=== PATIENT | male | born 1980 | race Caucasian/White ===

== ENCOUNTER 2024-12-09 16:26 | Inpatient (IN) | payer MEDICARE, MEDICAID, SELFPAY ==
[2024-12-09] VITALS (13 sets, daily range): BP systolic 114–153; BP diastolic 71–120; PULSE 114–149; RESP 20–30; TEMP 36.6–36.8; O2SAT 93–95; BMI 35.9
--- NOTE | 2024-12-09 16:41 | EKG_ITS ---
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1980 Requested By: ED Temporary Provider Order Number: [id number] Reading MD: ED Temporary Provider Measurements Intervals [place] Rate: 148 P: [place]: QRS: -48 QRSD: 79 T: 83 QT: 316 QTc: 497 Interpretive Statements ATRIAL FLUTTER/TACHYCARDIA WITH RAPID VENTRICULAR RESPONSE INDETERMINATE AXIS LOW QRS VOLTAGE [QRS DEFLECTION < 0.5/1.0 mV IN LIMB/CHEST LEADS] ANTEROSEPTAL MYOCARDIAL INFARCTION , OF INDETERMINATE AGE [40+ ms Q WAVE IN V1-V4] Compared to ECG 10/02/2024 15:46:25 Indeterminate axis now present Low QRS voltage now present Junctional tachycardia no longer present Left-axis deviation no longer present Incomplete right bundle-branch block no longer present Myocardial infarct finding still present /store/S0/[id number]/ecg/[id number].pdf
--- NOTE | 2024-12-09 16:54 | PD.EDRME ---
Rapid Medical Screening Exam RME Arrival date/time: 12/09/24 16:26 44-year-old male with history of CHF presents to the emergency department today complaints of shortness of breath and fast heart rate Chief Complaint: Shortness of Breath/Dyspnea Vital signs: Vital Signs Temperature 98.2 F 12/09/24 16:46 Pulse Rate 149 H 12/09/24 16:46 Respiratory Rate 24 H 12/09/24 16:46 Blood Pressure 153/96 H 12/09/24 16:46 Pulse Oximetry (%) 95 12/09/24 16:46 Oxygen Delivery Method Room Air 12/09/24 16:46
--- NOTE | 2024-12-09 17:24 | XR_ITS ---
Examination: AP chest single view Technique one AP portable upright chest single view Exam date and time: December 09, 2024 1752 hrs. Comparison October 02, 2024 Indications: Chest pain today Findings: Significant enlargement cardiac contour Mild vascular congestion. No lobar pneumonia No pulmonary edema Impression: Significant enlargement cardiac contour, pericardial effusion would be included in the differential
--- NOTE | 2024-12-09 17:26 | PD.EDARRY ---
ED Arrhythmia Palp. RME/HPI General Chief Complaint: Shortness of Breath/Dyspnea Stated Complaint: DIFF BREATHING x MONTHS, CONGESTION x 5 DAYS Time Seen by Provider: 12/09/24 17:24 Arrival date/time: 12/09/24 16:26 RME / HPI RME / HPI narrative: 12/09/24 16:26 44-year-old male with history of CHF presents to the emergency department today complaints of shortness of breath and fast heart rate DR. ZARATE MAIN ED EVALUATION: 44 year old male with history of CVA, CHF, liver cirrhosis, hypertension, hepatorenal syndrome, renal failure in the past and previously on hemodialysis presents to the ED for evaluation of palpitations, shortness of breath, and cough today. Reportedly has been short of breath intermittently for several months however worse in the last few days. Accompanied by a cough beginning 5 days ago. Additionally reports palpitations beginning today. Denies fevers, chills, abdominal pain, nausea, vomiting, diarrhea, or urinary symptoms. Related Data Home Medications ?Medication ?Instructions ?Recorded ?Confirmed cholecalciferol (vitamin D3) 25 25 mcg PO DAILY 01/01/23 10/03/24 mcg (1,000 unit) tablet folic acid 1 mg tablet 1 mg PO DAILY 01/01/23 10/03/24 loratadine 10 mg tablet 20 mg PO DAILY 01/01/23 10/03/24 pantoprazole 20 mg tablet,delayed 20 mg PO DAILY 01/01/23 10/03/24 release spironolactone 25 mg tablet 25 mg PO DAILY 01/01/23 10/03/24 vitamin B6-vitamin E-magnesium 1 tab PO QDAY 02/19/24 10/03/24 tablet Allergies Allergy/AdvReac Type Severity Reaction Status Date / Time No Known Allergies Allergy Verified 12/09/24 16:29 Review of Systems Review of Systems Narrative Review of Systems: Constitutional: DENIES; Fevers Eyes: DENIES; Loss of vision Head/Ear/Nose: DENIES; Loss of hearing Throat: DENIES; Dysphagia Cardiovascular: SEE HPI +palpitations. DENIES; Chest pain, dyspnea or syncope Respiratory: SEE HPI +Shortness of breath, +cough Gastrointestinal: DENIES; Rectal bleeding or melena. Genitourinary: DENIES; Dysuria (painful or difficult urination) Musculoskeletal: DENIES; Arthralgia (pain in a joint),; Skin: DENIES; Rash Neurological: DENIES; Loss of function or movement Psychiatric: DENIES; recent major life stressor, emotional problem, illicit drug use or abuse Endocrinology: DENIES; Weight change Hematologic/Lymphatic: DENIES; Abnormal bruising Allergic/Immunologic: DENIES; Urticaria (hives) Past Medical History Past Medical History NEUROLOGIC: Positive Cerebrovascular Accident CARDIAC: Positive Cardiac Arrhythmia, Atrial Fibrillation, Heart Murmur, Edema and Hypertension GASTROINTESTINAL: Positive Gastrointestinal Disorders, Cirrhosis, Gastrointestinal Bleed, Esophageal Varices, Gastroesophageal Reflux Disease and Obesity GENITOURINARY: Positive Genitourinary Disorders, Kidney Stones (SMALL) and Dialysis (off HD since 2022) MUSCULOSKELETAL: Positive Fractures (right HUMERUS) HEMATOLOGIC: Positive Blood Disorders, Anemia and Clotting Problems PSYCHO/SOCIAL: Positive Anxiety OTHER HISTORY: Positive Blood Transfusions Family History FAMILY HISTORY: Negative Family Psychiatric Problems, Family Respiratory Disorders, Family Cardiac Disorders, Family Gastrointestinal Problems, Family Cancer, Family Surgery or Family Anesthesia Reaction Surgical History SURGICAL: Positive Tonsillectomy Social History SMOKING STATUS: Heavy (> 1 pack/day) SECOND HAND EXPOSURE: Yes ED Exam Narrative Physical exam: Physical Exam: General: The vital signs were reviewed. The patient is non-toxic, in no apparent distress and appears healthy with a patent airway, no respiratory distress and has no apparent circulatory problems. Head & Scalp: Normocephalic, atraumatic. Face: Appears normal and is without lesions, deformity. Ears: Left external pinna appears normal. Right external pinna appears normal. Eyes: The sclera is anicteric. No obvious photophobia. The Left and Right Orbit/Lid/Conjunctiva appears normal without swelling, discoloration or injection. Nose: The nose is without deformity, discharge or tenderness; Throat: Appears normal. The mucous membranes are pink and moist without exudates, redness or mass seen. The tongue appears normal. Neck: The neck is supple and no apparent mass or adenopathy. Chest: The chest wall is normal in size and symmetry and has no chest wall tenderness or crepitus. The patient displays normal ventilator effort without retractions, accessory muscle use and has adequate air movement bilaterally with no wheezes and no rales. Cardiovascular: Patient has obvious A-fib RVR in the [place] with a rate of 170. His heart is going fast and fairly regular on auscultation. But the monitor shows some irregularity. Gastrointestinal: The abdomen appears distended protuberant probably full of fluid nontender though. No obvious hernias or mass. The abdomen firm to palpation probably full of fluid as mentioned above. Genitourinary: No complaints. Back/Spine: Nontender Extremities/Musculoskeletal/lymphatic: The bilateral upper and lower extremities are warm. There is no evidence of arterial insufficiency. There is 4+ pitting edema in bilateral lower extremities.. The patient spontaneously moves bilateral upper and lower extremities with no pain and no limitation of movement. There is no apparent, injury or trauma. Skin: The skin is warm, dry and intact. No rashes. No petechia. No purpura. No abnormal bruising. The color is appropriate with no cyanosis. Mental status/Psychiatric: Mental status is appropriate for age. The patient has no apparent delusions, visual hallucinations, no apparent audible hallucinations. The patient has no apparent suicidal thoughts/ideation and no apparent homicidal thoughts/ideation. Neurological: The patient is awake, alert, interactive, cordial, cooperative and is oriented to name and situation. The patient follows commands and answers historical question with no impairment. There is no visual disturbance apparent. The pupils are equal and reactive bilaterally with normal eye movements and no diplopia The bilateral upper and lower extremities have normal strength, normal range of motion and normal functioning. The gait, station and balance were not tested due to acuity. Course Course Course Narrative: chest xray ordered to help determine etiology of shortness of breath. Quality Measures none Orders Category Date Time Status Purse Seining Hand NOW Care 12/09/24 16:53 Active EKG (ED ONLY) *Do not use* NOW Care 12/09/24 16:41 Completed EKG (ED Only) Stat Exams 12/09/24 16:41 Draft XR chest 1V portable Stat Exams 12/09/24 17:24 Ordered XR chest 2V Stat Exams 12/09/24 16:53 Ordered B-Type Natriuretic Peptide Stat Lab 12/09/24 16:53 Ordered B-Type Natriuretic Peptide Stat Lab 12/09/24 17:24 Ordered CBC Stat Lab 12/09/24 16:53 Ordered CBC Stat Lab 12/09/24 17:24 Ordered Comprehensive Metabolic Panel Stat Lab 12/09/24 16:53 Ordered Drug Screen,Urine Stat Lab 12/09/24 16:53 Ordered Magnesium Stat Lab 12/09/24 16:53 Ordered Partial Thromboplastin Time Stat Lab 12/09/24 16:53 Ordered Prothrombin Time with INR Stat Lab 12/09/24 16:53 Ordered T4 (Thyroxine) Stat Lab 12/09/24 17:24 Ordered Thyroid Stimulating Hormone Stat Lab 12/09/24 17:24 Ordered Troponin I Stat Lab 12/09/24 16:53 Ordered Troponin I Stat Lab 12/09/24 17:24 Stop Req Urinalysis Stat Lab 12/09/24 16:53 Ordered Urinalysis Stat Lab 12/09/24 17:24 Ordered Urinalysis, C/S if Indicated Stat Lab 12/09/24 17:24 Ordered Vital Signs Vital signs: Vital Signs Temperature 98.2 F 12/09/24 16:46 Pulse Rate 149 H 12/09/24 16:46 Respiratory Rate 24 H 12/09/24 16:46 Blood Pressure 153/96 H 12/09/24 16:46 Pulse Oximetry (%) 95 12/09/24 16:46 Oxygen Delivery Method Room Air 12/09/24 16:46 Arrhythmia/Palpitations MDM Narrative MDM Narrative:: Review of the medical record reveals this patient had new onset atrial fib a month ago and is got ascites and cirrhosis. He was started on Cardizem/diltiazem IV and drip in the initial presentation and evidently converted to sinus rhythm per the patient's history. It appears his discharge instructions were revealed he is on oral Cardizem but patient could not confirm that. Nonetheless he has A-fib RVR he will need chemical cardioversion. He is actually amazingly tolerating this quite well considering his fluid overload. Initial dose of Cardizem IV are ordered and pending as of 1730 hrs. Patient's care will go to the oncoming doctor at 1800 hrs. Patient data External records reviewed:: [facility] previous records (I reviewed admission from 10/02/2024 through 10/04/2024 ) Clinical information provided by:: patient Social determinants that could affect healthcare access:: none Patient has the following chronic illnesses:: CVA, CHF, liver cirrhosis, hypertension, hepatorenal syndrome, renal failure in the past and previously on hemodialysis, Afib? for the first time 2 months ago How is presenting disease/condition affected by chronic disease/condition?: exacerbated by Evaluation data The following diagnostics were reviewed and interpreted by me:: lab results and EKG tracing(s) (Atrial flutter with RVR, rate 148, no STEMI ) Lab and/or radiology exams considered but not ordered:: None Interpretation Summary: As noted above Medications / Prescriptions Medications or Prescriptions considered but not ordered:: None Medication administrations:: See above Consultations Consultation(s) initiated? (list below): No Diagnosis Most likely diagnosis given after review of the tests above:: A-fib RVR etiology uncertain recurrent Admission Indicated Admission indicated?: not indicated Explain why admission is indicated or not indicated:: Patient signed out to Dr. Gomez Admission Request Was there a request for admission?: No Disposition Plan Disposition Plan: other (specify) (Patient signed out to Dr. Gomez ) Critical Care Time Critical Care Time Critical Care Time: Yes Total Critical Care Time (min.): 40 Attestation: The high probability of sudden, clinically significant deterioration in the patient's condition required the highest level of my preparedness to intervene urgently. The services I provided to this patient were to treat and/or prevent clinically significant deterioration. Services included the following: chart data review, reviewing nursing notes and/or old charts, documentation time, construction safety consultant collaboration regarding findings and treatment options, medication orders and management, direct patient care, vital sign assessments and ordering, interpreting and reviewing diagnostic studies and lab tests. Aggregate critical care time includes only time during which I was engaged in work directly related to the patient's care, as described above, whether at bedside or elsewhere in the Emergency Department. It did not include time spent performing other reported procedures or the services of residents, students, nurses or physician assistants. Discharge Plan Prescriptions/Referrals Prescriptions/Med Rec: No Action spironolactone 25 mg tablet 25 mg PO DAILY Patient Comments: TAKE 1 TABLET BY MOUTH EVERY DAY pantoprazole 20 mg tablet,delayed release (DR/EC) 20 mg PO DAILY Patient Comments: TAKE ONE TABLET BY MOUTH EVERY DAY HEARTBURN GASTRIC ACIDITY folic acid 1 mg tablet 1 mg PO DAILY Patient Comments: TAKE 1 TABLET BY MOUTH EVERY DAY FOR 30 DAYS loratadine 10 mg tablet 20 mg PO DAILY Patient Comments: TAKE 2 TABLETS BY MOUTH EVERY DAY IN THE MORNING cholecalciferol (vitamin D3) 25 mcg (1,000 unit) tablet 25 mcg PO DAILY Patient Comments: TAKE 1 TABLET BY MOUTH EVERY DAY vitamin B6-vitamin E-magnesium Tablet 1 tab PO QDAY Referrals: Mating,Narwhals, MD [Primary Care Provider] - In 1 week Problem List Clinical Impression: Atrial flutter with rapid ventricular response, Cirrhosis, Anasarca Patient/Caregiver Discharge Instructions Print Language: Icelandic
[2024-12-09] MEDS: DILTIAZEM INJ 5 MG/ML VIAL 5 ML 10 MG IV ×2 (17:59→18:11)
--- NOTE | 2024-12-09 18:11 | EDNOTE_ITS ---
Emergency Room Addendum <Negar Oro - Last Filed: 12/09/24 21:38> Addendum Narrative: 1800: Care assumed from Dr. Raza, the previous shift emergency physician. Past medical, surgical, social and family history reviewed. Vitals and home medications reviewed. I will assume the care of the patient at this time. Please refer to the emergency department record for history and examination from initial visit.? 44 year old male with past medical history significant for CVA, CHF, liver cirrhosis, hypertension, hepatorenal syndrome, renal failure in the past and previously on hemodialysis with chief cmplaint of shortness of breath wth an associated cough today. Physical exam by me shows patient under no acute distress at this time. Sitting up in bed in no acute distress. 2000: Patient with a heart rate 140. Will give an additional Cardizem 25 IV push, patient is currently on a Cardizem drip at 5 mcg Exam: 1 view portable chest xray Indication: shortness of breath My interpretation: cardiomegaly, no CHF, no fusion, increase vascularization on the right. Cannot rule out early CHF. EKG: Dated 12/09/2024 at 1643 hours. Interpreted by me: flutter ABR, rate 148, QTc 401, low voltage, no STEMI 4: Discussed test HPI, PMHx, lab, radiology results and/or management with Dr. Lehman, working in the ICU. Will admit for further evaluation and management in the ICU. Accepts patient for admission. CRITICAL CARE: TIME: 45 minutes. The high probability of sudden, clinically significant deterioration in the patient?s condition required the highest level of my preparedness to intervene urgently. The services I provided to this patient were to treat and/or prevent clinically significant deterioration. Services included the following: chart data review, reviewing nursing notes and/or old charts, documentation time, funeral pre need consultant collaboration regarding findings and treatment options, medication orders and management, direct patient care, vital sign assessments and ordering, interpreting and reviewing diagnostic studies and lab tests. Aggregate critical care time includes only time during which I was engaged in work directly related to the patient?s care, as described above, whether at bedside or elsewhere in the Emergency Department. It did not include time spent performing other reported procedures or the services of residents, students, nurses or physician assistants. <Virginia Gomez MD - Last Filed: 12/09/24 20:01> Addendum Narrative: 1800: Care assumed from Dr. Raza, the previous shift emergency physician. Past medical, surgical, social and family history reviewed. Vitals and home medications reviewed. I will assume the care of the patient at this time. Please refer to the emergency department record for history and examination from initial visit.? 44 year old male with past medical history significant for CVA, CHF, liver cirrhosis, hypertension, hepatorenal syndrome, renal failure in the past and previously on hemodialysis with chief cmplaint of shortness of breath wth an associated cough today. Physical exam by me shows patient under no acute distress at this time. Sitting up in bed in no acute distress. 2000: Patient with a heart rate 140. Will give an additional Cardizem 25 IV push, patient is currently on a Cardizem drip at 5 mcg Exam: 1 view portable chest xray Indication: shortness of breath My interpretation: cardiomegaly, no CHF, no fusion, increase vascularization on the right. Cannot rule out early CHF. EKG: Dated 12/09/2024 at 1643 hours. Interpreted by me: flutter ABR, rate 148, QTc 401, low voltage, no STEMI
[2024-12-09 18:14] LABS: Lactate (Lactic Acid) 1.9 mMol/L (0.4-2.0)
[2024-12-09 18:15] LABS: Base Excess, Venous 0 (-3-3); O2 Saturation, Venous 98 % (96-97); PCO2, Venous 35 mmHg (36-56); PO2, Venous 85 mmHg (15-58); pH, Venous 7.44 (7.33-7.66)
[2024-12-09 18:32] LABS: Basophils % (Auto) 1 % (0-2.5); Eosinophils # (Auto) 0.1 Thou/mm3 (0.0-0.5); Eosinophils % (Auto) 1 % (0-10); Hemoglobin 13.5 g/dL (13.5-16.0); Immature Granulocytes % (Auto) 1 % (0-0); Immature Granulocytes Auto 0.04 Thou/mm3 (0.00-0.00); Lymphocytes # (Auto) 1.2 Thou/mm3 (1.0-4.8); Lymphocytes % (Auto) 16 % (10-50); Mean Corpuscular HGB Conc 34.6 g/dl (31.0-37.0); Mean Corpuscular Hemoglobin 32.1 pg (25.0-35.0); Mean Corpuscular Volume 93 fL (80-100); Monocytes # (Auto) 0.8 Thou/mm3 (0.0-0.8); Monocytes % (Auto) 11 % (0-12); Neutrophils # (Auto) 5.2 Thou/mm3 (1.8-7.7); Neutrophils % (Auto) 71 % (37-80); Nucleated Red Blood Cell % 0 /100 WBC (0); Platelet Count 76 Thou/mm3 (140-440); RDW Standard Deviation 58.1 fL (35.1-43.9); Red Blood Count 4.21 Miln/mm3 (4.50-5.90); White Blood Count 7.4 Thou/mm3 (3.8-10.6)
[2024-12-09 18:37] LABS: Ammonia 34 uMol/L (11-32)
[2024-12-09 18:38] LABS: T4 (Thyroxine) 7.7 mcg/dL (4.5-10.9)
[2024-12-09 18:40] LABS: Alanine Aminotransferase 20 U/L (10-49); Albumin, Serum 3.8 gm/dL (3.5-5.0); Albumin/Globulin Ratio 1.1 (1.2-2.2); Alkaline Phosphatase 150 U/L (46-116); Anion Gap 13 (7-16); Aspartate Amino Transferase 36 U/L (0-34); BUN/Creatinine Ratio 16 Ratio (12-20); Bilirubin,Total 3.9 mg/dL (0.3-1.2); Blood Urea Nitrogen 13 mg/dL (9-23); Calcium 8.8 mg/dL (8.3-10.6); Carbon Dioxide 22.2 mMol/L (20.0-31.0); Chloride 107 mMol/L (98-107); Creatinine (Component) 0.8 mg/dL (0.6-1.3); Estimated Creatinine Clearance 157.7 mL/min (>60); Globulin 3.4 gm/dL (2.3-3.5); Glucose 89 mg/dL (74-106); Magnesium 1.5 mg/dL (1.6-2.6); Osmolality,Calculated 282 (275-295); Potassium 3.3 mMol/L (3.4-5.1); Sodium 142 mMol/L (136-145); Thyroid Stimulating Hormone 2.96 uIU/mL (0.55-4.78); Total Protein 7.2 gm/dL (5.7-8.2); Troponin I < 0.020 ng/mL (0.0-0.045); eGFR > 60 See Note
[2024-12-09 18:55] LABS: INR 1.3 (0.9-1.3); Partial Thromboplastin Time 25.6 Seconds (22.0-36.0); Prothrombin Time 13.9 Seconds (9.0-12.2)
[2024-12-09] MEDS: DILTIAZEM INJ 125 MG in DEXTROSE 5%-WATER 100 ML IV (18:56)
[2024-12-09 19:15] LABS: B-Type Natriuretic Peptide 448 pg/mL (0-100)
[2024-12-09 19:17] LABS: Slide Review Platelets confirmed
[2024-12-09] MEDS: DILTIAZEM INJ 5 MG/ML VIAL 5 ML 25 MG IV (20:05)
[2024-12-09] MEDS: DIGOXIN INJ 0.25 MG/ML AMP 2 ML 0.5 MG IVP (21:10)
[2024-12-09] MEDS: AMIODARONE 150 MG IVPB 150 MG/100 ML BAG 600 MG IV (21:35)
[2024-12-09] MEDS: POTASSIUM CHL 10 mEq IVPB 10 MEQ/100 ML BAG 100 MEQ IV ×2 (21:46→22:57)
[2024-12-09] MEDS: POTASSIUM CHLORIDE 20 mEq TABCR 40 MEQ PO (21:46)
--- NOTE | 2024-12-09 22:01 | XR_ITS ---
Examination: Abdomen sonogram, Limited Date and time of exam: December 09, 2024 1007 hrs. Indications: Cirrhosis, elevated total bilirubin on laboratory examination today Technique: Real-time cornejo scale transabdominal sonographic images of the upper abdomen obtained. Findings: Contracted gallbladder Gallbladder wall is 6 mm but the patient has ascites Cholelithiasis Gallbladder sludge Common bile duct 0.5 cm Pancreas is obscured by bowel gas Liver interpreted visualized lobular margins right lobe liver lesion 3.0 x 2.6 x 2.6 cm Normal hepatopedal portal venous flow Patent IVC Impression: Cirrhosis Cholelithiasis The gallbladder wall thickened but the patient has ascites, clinical correlation advised HIDA scan or MRCP follow-up would best assess for cholecystitis No common bile duct stones 3 x 2.6 cm right lobe liver lesion, consider elective MRI follow-up pre and postcontrast to assess this liver lesion
--- NOTE | 2024-12-09 22:10 | PD.RESHP ---
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 Patient endorsed that he was apparently till 3 days ago, later he felt sluggish and fatigued. Also endorsed that he noted shortness of breath due to which she is not able to lie down. Endorsed that he is having lower extremity edema and abdominal distention from him while no one did not notice any increase in distention or worsening of lower extremity edema. Denies fever, cough, burning micturition, abdominal pain, vomitings, diarrhea. On the day of admission on waking up in the morning, patient noticed redness, itching and discharge from both eyes, associated with nasal congestion. Denies recent travel, allergen exposure, sneezes ED Course: -Initial vitals were 153/96 mmHg, pulse rate 149 bpm, respiratory 24/min, temperature 98.2 ?F, SpO2 95% with room air -Labs significant for platelet count 76, PT 13.9, potassium 3.3, total bilirubin 3.9, magnesium 1.5, AST 36, ALT 20, ALP 150, ammonia 34, BNP 448, TSH 2.96. Tested negative for RSV, COVID and influenza -Chest x-ray showed enlargement of cardiac contour, likely pericardial effusion. EKG showed atrial flutter with rapid ventricular rate. Abdominal ultrasound showed cirrhosis with ascites, mass lesion in the liver which is present during the previous scans -In the ED, patient was given diltiazem IV pushes and started on diltiazem drip 5 Mg per hour -Patient was admitted for atrial flutter with rapid ventricular rate Past medical history: Cirrhosis, hypertension, hepatorenal syndrome s/p ESRD and on dialysis for 3 years from 7764-5795, CVA, hematologic s/p craniotomy in December 2021, HFrEF [EF 40%, 2023], recently diagnosed in 09/2024 with atrial flutter Past surgical history: Craniotomy Social history: Stopped alcohol intake when diagnosed with ESRD 2018, continued smoking 5 to 10 cigarettes/day, denies other illicit drug abuse. Review of Systems Review of Systems Systems Reviewed: All systems reviewed, normal except as documented Past Medical History Past Medical History NEUROLOGIC: Positive Cerebrovascular Accident CARDIAC: Positive Cardiac Arrhythmia, Atrial Fibrillation, Edema and Hypertension GASTROINTESTINAL: Positive Gastrointestinal Disorders, Cirrhosis, Gastrointestinal Bleed, Esophageal Varices, Gastroesophageal Reflux Disease and Obesity GENITOURINARY: Positive Genitourinary Disorders, Kidney Stones (SMALL) and Dialysis (off HD since 2022) MUSCULOSKELETAL: Positive Fractures (right HUMERUS) HEMATOLOGIC: Positive Blood Disorders, Anemia and Clotting Problems PSYCHO/SOCIAL: Positive Anxiety OTHER HISTORY: Positive Blood Transfusions Family History FAMILY HISTORY: Negative Family Psychiatric Problems, Family Respiratory Disorders, Family Cardiac Disorders, Family Gastrointestinal Problems, Family Cancer, Family Surgery or Family Anesthesia Reaction Surgical History SURGICAL: Positive Tonsillectomy Social History SMOKING STATUS: Heavy (> 1 pack/day) SECOND HAND EXPOSURE: Yes Exam Vital Signs Temp Pulse Resp BP Pulse Ox O2 Del Method O2 Flow Rate 98.0 F 132 H 28 H 147/120 H 93 L Nasal Cannula 2 12/09/24 19:14 12/09/24 21:35 12/09/24 21:10 12/09/24 21:35 12/09/24 21:10 12/09/24 21:10 12/09/24 21:10 Narrative Exam General: Awake. HEENT: Normocephalic, atraumatic, mucous membranes moist. Heart: Irregular rate and rhythm, no murmurs. Lungs: Bilateral diffuse wheeze heard Abdomen: Soft, distended, nontender, positive bowel sounds. ?No guarding or rebound tenderness. Umbilical hernia noted Neurologic: Alert and oriented x3, no gross neurological deficit, and patient able to move all 4 extremities. Extremities: Bilateral lower extremity 4+ pedal edema extending up to the knees Skin: No rash or ecchymoses. Results: Labs 12/09/24 17:50 12/09/24 17:50 Labs: Short CBC 12/09/24 Range/Units 17:50 WBC 7.4 (3.8-10.6) Thou/mm3 Hgb 13.5 (13.5-16.0) g/dL Hct 39.0 L (41.0-53.0) % Plt Count 76 L (140-440) Thou/mm3 BMP 12/09/24 17:50 Sodium 142 Potassium 3.3 L Chloride 107 Carbon Dioxide 22.2 BUN 13 Creatinine 0.8 Glucose 89 Calcium 8.8 Cardiac Enzymes 12/09/24 Range/Units 17:50 Troponin I < 0.020 (0.0-0.045) ng/mL Liver Function 12/09/24 Range/Units 17:50 Total Bilirubin 3.9 H (0.3-1.2) mg/dL AST 36 H (0-34) U/L ALT 20 (10-49) U/L Alkaline Phosphatase 150 H (46-116) U/L Albumin 3.8 (3.5-5.0) gm/dL ABG Interpretation ABG results: 12/09/24 17:50 VBG pH 7.44 VBG pCO2 35 L VBG pO2 85 H VBG Base Excess 0 Quality Measures Quality Measures none Medications Home Medications and Allergies Home Medications ?Medication ?Instructions ?Recorded ?Confirmed ?Type cholecalciferol (vitamin D3) 25 25 mcg PO DAILY 01/01/23 10/03/24 History mcg (1,000 unit) tablet folic acid 1 mg tablet 1 mg PO DAILY 01/01/23 10/03/24 History loratadine 10 mg tablet 20 mg PO DAILY 01/01/23 10/03/24 History pantoprazole 20 mg tablet,delayed 20 mg PO DAILY 01/01/23 10/03/24 History release spironolactone 25 mg tablet 25 mg PO DAILY 01/01/23 10/03/24 History vitamin B6-vitamin E-magnesium 1 tab PO QDAY 02/19/24 10/03/24 History tablet Allergies Allergy/AdvReac Type Severity Reaction Status Date / Time No Known Allergies Allergy Verified 12/09/24 16:29 Visit Medications Acetaminophen (Acetaminophen 325 Mg Tablet) 500 mg PO Q6H PRN PRN Reason: Fever >101.5 Stop: 01/08/25 21:54 Furosemide (Furosemide Inj 10 Mg/Ml 4ml Vial) 40 mg IVP QDAY MARY Stop: 01/09/25 08:59 Potassium Chloride (Kcl Ivpb) 10 meq in 100 mls @ 100 mls/hr IV Q1H MARY Stop: 12/09/24 23:29 Last Admin: 12/09/24 21:46 Dose: 100 mls/hr Amiodarone HCl/Dextrose (Nexterone Ivpb) 360 mg in 200 mls @ 33.333 mls/hr IV .Q6H ONE Stop: 12/10/24 03:58 Amiodarone HCl/Dextrose (Nexterone Ivpb) 360 mg in 200 mls @ 16.667 mls/hr IV .Q12H MARY Stop: 12/10/24 21:58 Magnesium Sulfate (Magnesium Sulfate Ivpb) 4 gm in 50 mls @ 12.5 mls/hr IV X1 ONE Stop: 12/10/24 01:59 Levalbuterol HCl (Levalbuterol Rt 0.63 Mg/3 Ml Nebu) 0.63 mg INH Q6HRRT PRN PRN Reason: sob or wheeze Stop: 01/09/25 00:59 Magnesium Hydroxide (Milk Of Magnesia Susp 30 Ml Udc) 30 ml PO QDAY PRN; Protocol PRN Reason: CONSTIPATION Stop: 01/08/25 21:54 Ondansetron HCl (Ondansetron Inj 2 Mg/Ml Inj 2 Ml) 4 mg IV Q6H PRN; Protocol PRN Reason: NAUSEA OR VOMITING Stop: 01/08/25 21:54 Discontinued Medications Digoxin (Digoxin Inj 0.25 Mg/Ml Amp 2 Ml) 0.5 mg IVP X1 ONE Stop: 12/09/24 20:44 Last Admin: 12/09/24 21:10 Dose: 0.5 mg Diltiazem HCl (Diltiazem Inj 5 Mg/Ml Vial 5 Ml) 10 mg IV X1 ONE Stop: 12/09/24 17:27 Last Admin: 12/09/24 17:59 Dose: 10 mg Diltiazem HCl (Diltiazem Inj 5 Mg/Ml Vial 5 Ml) 10 mg IV X1 ONE Stop: 12/09/24 18:10 Last Admin: 12/09/24 18:11 Dose: 10 mg Diltiazem HCl (Diltiazem Inj 5 Mg/Ml Vial 5 Ml) 25 mg IV X1 ONE Stop: 12/09/24 19:55 Last Admin: 12/09/24 20:05 Dose: 25 mg Diltiazem HCl 125 mg/ Dextrose 125 mls @ 5 mls/hr IV .Q24H MARY Stop: 01/08/25 17:26 Last Infusion: 12/09/24 21:35 Dose: Infused Amiodarone HCl/Dextrose (Nexterone Ivpb) 150 mg in 100 mls @ 600 mls/hr IV .Q10M ONE Stop: 12/09/24 21:22 Last Infusion: 12/09/24 21:53 Dose: Infused Potassium Chloride (Potassium Chloride 20 Meq Tabcr) 40 meq PO X1 ONE Stop: 12/09/24 21:31 Last Admin: 12/09/24 21:46 Dose: 40 meq Potassium Chloride (Potassium Chloride 20 Meq Tabcr) 20 meq PO X1 ONE Stop: 12/09/24 22:04 Assessment & Plan Plan A 44-year-old male with past medical history of cirrhosis, hypertension, hepatorenal syndrome s/p ESRD and on dialysis for 3 years from 6540-1071, CVA, hematologic s/p craniotomy in December 2021, HFrEF [EF 40%, 2023], recently diagnosed in 09/2024 with atrial flutter presented to the hospital with chief complaints of fatigue and shortness of breath since 3 days and admitted for atrial flutter with rapid ventricle rate # Atrial flutter with rapid ventricular rate # History of HFrEF, EF 40% # Chronic smoker, remote alcohol abuse -Patient was recently diagnosed in 09/2024 with atrial flutter -Discharged to home with diltiazem 120 Mg ER and advised to follow-up with Dr. Live for cardioversion, but patient did not go to the clinic due to financial and insurance issues -Echo done on 09/2024 showed Global LV systolic function is mildly decreased. Estimated EF 40 %. RV systolic function is moderately decreased. Mildly dilated LA and RA. Moderate TR. Moderate pericardial effusion. No tamponade -Presented to the hospital with complaints of fatigue and shortness of breath -EKG at the time of admission showed atrial flutter with rapid ventricular rate -[id number] score is 4 and patient is already using Eliquis -Vitals at the time of admission are blood pressure 153/96 mmHg, pulse rate 114 bpm, respiratory rate 24/min -Labs showed platelets 76, PT 13.9, INR 1.3, potassium 3.3, magnesium 1.5, total bilirubin 3.9, AST 36, ammonia 34, BNP 448 -Tested negative for influenza, COVID, RSV -Patient endorsed compliance with medications -Abdominal ultrasound showed cirrhosis and ascites -Patient was given IV push of diltiazem and started on diltiazem drip at 5 Mg per hour Plan -Despite getting diltiazem IV pushes and on diltiazem drip, digoxin IV push heart rate is still 140-150, so started on amiodarone drip -Will resume home dose of diltiazem -Resumed Eliquis 5 Mg p.o. twice daily -Started on furosemide 40mg I.V once dailt, titrate as needed -Admitted to telemetry -Monitor heart rate and other vitals -Correct electrolytes. -Strict input and output, fluid restriction to 1500 mL, sodium restriction to 2 g # Hypokalemia # Hypomagnesemia Likely due to combined decreased oral intake and Lasix -At the time of admission, potassium is 3.3 and magnesium is 1.5 -Patient is using Lasix and spironolactone at home -Supplemented with IV potassium and magnesium -Monitor electrolytes and replete them accordingly # Cirrhosis with ascites secondary to alcohol use # Thrombocytopenia # Hyperbilirubinemia -Patient endorsed that his lower extremity swelling and abdominal distention was stable and did not notice any increase in the abdominal distention -On examination, abdomen is distended and inguinal hernia is noted without any tenderness. Bilateral pedal edema 4+ extending up to the knees -Bilirubin at the time of admission is 3.9, platelet count is 76, ammonia is 34 -Patient is using Lasix and spironolactone at home -MELD Score is 15, child class B Plan -Abdominal ultrasound ordered which showed ascites -Ordered diagnostic/therapeutic paracentesis to rule out SBP -Started on Lasix 40 Mg IV once daily -Recommended to resume spironolactone if blood pressure is stable # Bilateral conjunctivitis, likely bacterial -On the day of admission, on waking up from the bed patient noticed reddish discoloration of eyes with pain and discharge -Denies sneezing, watering -Ciprofloxacin eyedrops were ordered -Artificial drops # History of hypertension -Patient is using furosemide and spironolactone -Blood pressures are stable for now -Will monitor blood pressure and titrate medication accordingly Hospital Maintenance: Dispo: Tele DVT ppx: eliquis GI ppx: not needed Diet: low sodium IV lines: peripheral Code status: Full Patient plan of care was discussed with the attending physician, Dr. Dominik Fontenot, PGY1 Attending Provider Attestation/Addendum I have discussed and was present for the essential components of the history, physical examination, diagnosis, and treatment plan with the resident. I agree with the patient's care as documented by the resident and amended herein by me. Adolfo Lehman DO. Patient seen and evaluated in the ED. In short, patient is a 44-year-old male with significant past medical history of CVA, CHF with a last reported EF of 40%, alcohol induced liver cirrhosis, hypertension, previous ESRD on HD however resolved, SBP, tobacco use, substance abuse presented the ED with complaints of shortness of breath and fast heart rate . Patient subsequently admitted to telemetry for atrial fibrillation/atrial for flutter. In the ED, initial BP 153/96 mmHg, pulse 149, respiratory rate 24, the patient was afebrile. EKG demonstrating what appeared to be atrial flutter with a rate of 148. Significant labs include a platelet count of 76 which appears to be patient's baseline, INR 1.3, VBG demonstrating a pH of 7.44, pCO2 of 35, BMP significant for a potassium of 3.3, mag 1.5, T. bili 3.9, AST 36, ammonia level 34, BNP 448, TSH 2.96, chest x-ray significant for an enlarged cardiac contour with possible pericardial effusion, an abdominal ultrasound was also ordered demonstrating cirrhosis, cholelithiasis, thickened gallbladder wall in setting of ascites, ascites and liver lobe lesions however previously biopsied and shown to be benign. Patient initially started on diltiazem drip in the ED however heart rate persistently in the 140s hence ED started patient on amiodarone drip with improvement seen in heart rate. Significant problems: #Atrial flutter in setting of possible CHF exacerbation and decompensated liver failure #?Acute decompensated heart failure Continue amiodarone drip, will replete electrolytes as needed keeping potassium greater than 4 and magnesium greater than 2,, urine drug screen pending, strict I's and O's, daily weights and fluid restriction ordered. IV Lasix 40 mg daily, will restart the patient spironolactone 25 mg daily however may need to titrate up, will continue the patient's home Eliquis dose. Day team to consider cardiology consult. #Acute decompensated liver cirrhosis with ascites Abdominal ultrasound ordered, results as above. Will order diagnostic and therapeutic paracentesis. #Conjunctivitis, suspect bacterial Will start ciprofloxacin ophthalmology drops Although this document has been carefully reviewed, there may still be some phonetic and other typographical errors. These errors are purely grammatical due to imperfections in the software program and should not be construed in any way to compromise the substance of the patient's medical care during this visit.
[2024-12-09] MEDS: Magnesium Sulfate 4 GM Ivpb 4 GM/50 ML BAG IV (22:22)
[2024-12-09] MEDS: AMIODARONE 360 MG IVPB 360 MG/200 ML BAG 33.333 MG IV (22:24)
[2024-12-09] MEDS: LEVALBUTEROL RT 0.63 MG/3 ML NEBU INH (22:27)
[2024-12-09] MEDS: POTASSIUM CHLORIDE 20 mEq TABCR PO (22:31)
[2024-12-09] MEDS: APIXABAN 2.5 MG TABLET 5 MG PO (23:31)
[2024-12-10] VITALS (16 sets, daily range): BP systolic 100–139; BP diastolic 76–96; PULSE 102–139; RESP 17–28; TEMP 36.1–36.9; O2SAT 92–98; BMI 35.9; BMI 36.0
[2024-12-10] MEDS: FUROSEMIDE INJ 10 MG/ML VIAL 2 ML 40 MG IVP (00:19)
[2024-12-10 01:12] LABS: Respiratory Syncytial Virus Ag Negative (Negative)
--- NOTE | 2024-12-10 01:14 | XR_ITS ---
Examination: Ultrasound-guided paracentesis Abdominal sonogram limited Date and time of exam: December 10, 2024 1158 hours INDICATIONS: Cirrhosis increasing ascites and abdominal distention this week Informed consent provided. A timeout was completed verifying correct patient, procedure, site, positioning, and special adequate movement if applicable. Technique: Multiple sonographic images of the abdomen have been obtained. Appropriate area for paracentesis was marked. Local anesthesia is obtained with 1% lidocaine. Yueh catheter is successfully introduced. Findings: Abdominal sonographic images demonstrate sufficient ascitic fluid for paracentesis. After placing the Yueh catheter, 7550 cc of fluid were successfully removed. During and after completion of the procedure the patient appear in satisfactory and stable condition with no complications observed. Estimated blood loss 0 cc Impression: Abdominal ascites Successful ultrasound-guided paracentesis as described above
[2024-12-10] MEDS: AMIODARONE 360 MG IVPB 360 MG/200 ML BAG 16.667 MG IV ×2 (03:41→16:11)
[2024-12-10 05:45] LABS: Collection Type, Urine Clean Catch; RBC,Urine 0 /hpf (0-3); Squamous Epithelial Cell,Urine 0 /hpf (0-5)
[2024-12-10 06:07] LABS: Bacteria,Urine Rare; Bilirubin,Urine Negative (Negative); Blood,Urine Negative (Negative); Clarity,Urine Clear (Clear/Hazy); Color,Urine Colorless (Lt Yel-Yel); Culture Indicated,Urine Not Indicated; Glucose, Urine Negative (Negative); Ketones,Urine Negative (Negative); Leukocyte Esterase,Urine Negative (Negative); Nitrite,Urine Negative (Negative); Protein,Urine Negative (Neg - Trace); Specific Gravity,Urine 1.006 (1.001-1.035); Urobilinogen,Urine Negative mg/dL (0.0-1.0); WBC,Urine < 1 /hpf (0-5)
[2024-12-10] MEDS: CIPROFLOXACIN OP SOL 0.3% 5 ML BTL BOTH EYES ×5 (06:07→21:30)
[2024-12-10 06:09] LABS: Amphetamine/Methamp Scrn,U Negative (Negative); Barbiturate Screen,Urine Negative (Negative); Benzodiazepines Screen,Urine Negative (Negative); Benzoylecgonine Screen, Ur Negative (Negative); Fentanyl Screen,Urine Negative (Negative); Opiate Screen,Urine Negative (Negative); THC Screen,Urine Negative (Negative)
[2024-12-10 06:16] LABS: Basophils % (Auto) 0 % (0-2.5); Eosinophils # (Auto) 0.1 Thou/mm3 (0.0-0.5); Eosinophils % (Auto) 1 % (0-10); Hemoglobin 12.7 g/dL (13.5-16.0); Immature Granulocytes % (Auto) 0 % (0-0); Immature Granulocytes Auto 0.03 Thou/mm3 (0.00-0.00); Lymphocytes # (Auto) 1.4 Thou/mm3 (1.0-4.8); Lymphocytes % (Auto) 19 % (10-50); Mean Corpuscular HGB Conc 34.3 g/dl (31.0-37.0); Mean Corpuscular Hemoglobin 32.1 pg (25.0-35.0); Mean Corpuscular Volume 93 fL (80-100); Monocytes # (Auto) 0.8 Thou/mm3 (0.0-0.8); Monocytes % (Auto) 11 % (0-12); Neutrophils # (Auto) 4.9 Thou/mm3 (1.8-7.7); Neutrophils % (Auto) 68 % (37-80); Nucleated Red Blood Cell % 0 /100 WBC (0); RDW Standard Deviation 57.4 fL (35.1-43.9); Red Blood Count 3.96 Miln/mm3 (4.50-5.90); White Blood Count 7.2 Thou/mm3 (3.8-10.6)
[2024-12-10 06:22] LABS: Alanine Aminotransferase 18 U/L (10-49); Albumin, Serum 3.7 gm/dL (3.5-5.0); Albumin/Globulin Ratio 1.2 (1.2-2.2); Alkaline Phosphatase 140 U/L (46-116); Anion Gap 10 (7-16); Aspartate Amino Transferase 33 U/L (0-34); BUN/Creatinine Ratio 14 Ratio (12-20); Bilirubin,Total 3.3 mg/dL (0.3-1.2); Blood Urea Nitrogen 11 mg/dL (9-23); Calcium 8.8 mg/dL (8.3-10.6); Carbon Dioxide 24.2 mMol/L (20.0-31.0); Chloride 106 mMol/L (98-107); Creatinine (Component) 0.8 mg/dL (0.6-1.3); Estimated Creatinine Clearance 157.9 mL/min (>60); Globulin 3.2 gm/dL (2.3-3.5); Glucose 103 mg/dL (74-106); Magnesium 1.5 mg/dL (1.6-2.6); Osmolality,Calculated 278 (275-295); Potassium 3.4 mMol/L (3.4-5.1); Sodium 140 mMol/L (136-145); Total Protein 6.9 gm/dL (5.7-8.2); eGFR > 60 See Note
[2024-12-10 06:23] LABS: Platelet Count 67 Thou/mm3 (140-440)
[2024-12-10 06:37] LABS: Slide Review Platelets confirmed
--- NOTE | 2024-12-10 07:26 | PC.NURSE ---
Pt. refused bed alarm, Pt. educated on fall risks and precautions and agrees to call for help.
--- NOTE | 2024-12-10 08:12 | ESPR_ITS ---
Documentation for date of: 12/10/24 Subjective Subjective Interval history: I was with patient after paracentesis. He feels better after paracentesis. He is at bedside having lunch, feeling well. Denies palpitation or racing sensation. Denies fever, chills, headaches, chest pain, sob, cough, GI or urinary symptoms. Exam Vital Signs Temp Pulse Resp BP Pulse Ox O2 Del Method O2 Flow Rate 97.0 F 132 H 28 H 127/96 H 95 Nasal Cannula 2 12/10/24 04:00 12/10/24 07:52 12/10/24 07:52 12/10/24 04:00 12/10/24 07:52 12/10/24 04:00 12/10/24 04:00 Narrative Exam GENERAL * Obese, no apparent distress. HEENT * NCAT.?KITTY. Oral mucosa is moist. Patent Nares NECK * Supple, nontender, no thyromegaly, no meningismus, no JVD, no step offs CHEST * Tachycardic, irregular rhythm, no m/g/r * CTAB, no w/r/r. Symmetrical chest rise. No intercostal subcostal retraction * Atraumatic, nontender, no crepitus, symmetrical expansion. ABDOMEN * Distended, tense, nontender. No guarding/rebound tenderness/masses. * Bowel sounds presents EXTREMITIES * Bilateral lower extremity 2+ pitting edema, chronic venous stasis changes with mild tenderness to palpation. * No edema/cyanosis.? SKIN * Warm and dry, no jaundice/rashes. NEUROMUSCULAR * No lumbar or midline, no CVA, no paraspinal muscle spasm or tenderness. * Moves all 4 extremities well, with full ROM and good CSM. * DRUAN x4, CN II-XII grossly intact. * No focal neurologic deficits. PSYCHIATRY * Normal mood and affect, cooperative, no SI or HI or hallucinations. Objective Labs 12/10/24 05:40 12/10/24 05:40 Labs: Laboratory Results - last 24 hr 12/09/24 12/09/24 12/10/24 17:50 23:41 01:40 WBC 7.4 RBC 4.21 L Hgb 13.5 Hct 39.0 L MCV 93 MCH 32.1 MCHC 34.6 RDW Std Deviation 58.1 H Plt Count 76 L Neut % (Auto) 71 Lymph % (Auto) 16 Hale % (Auto) 11 Eos % (Auto) 1 Baso % (Auto) 1 Neut # (Auto) 5.2 Lymph # (Auto) 1.2 Hale # (Auto) 0.8 Eos # (Auto) 0.1 Baso # (Auto) 0.0 Immature Gran # (Auto) 0.04 H Absolute Nucleated RBC 0.00 Immature Gran % 1 H Nucleated RBC % 0 PT 13.9 H INR 1.3 APTT 25.6 VBG pH 7.44 VBG pCO2 35 L VBG pO2 85 H VBG O2 Sat (Ruddy) 98 H VBG Base Excess 0 Sodium 142 Potassium 3.3 L Chloride 107 Carbon Dioxide 22.2 Anion Gap 13 BUN 13 Creatinine 0.8 Estim Creat Clear Calc 157.7 eGFR > 60 BUN/Creatinine Ratio 16 Glucose 89 Calculated Osmolality 282 Lactic Acid 1.9 Calcium 8.8 Corrected Calcium 9.0 Magnesium 1.5 L Total Bilirubin 3.9 H AST 36 H ALT 20 Alkaline Phosphatase 150 H Ammonia 34 H Troponin I < 0.020 B-Natriuretic Peptide 448 H Total Protein 7.2 Albumin 3.8 Globulin 3.4 Albumin/Globulin Ratio 1.1 L TSH 2.96 Thyroxine (T4) 7.7 Ur Collection Type Clean Catch Urine Color Colorless A Urine Clarity Clear Urine pH 7.0 Ur Specific [place] 1.006 Urine Protein Negative Urine Glucose (UA) Negative Urine Ketones Negative Urine Blood Negative Urine Nitrite Negative Urine Bilirubin Negative Urine Urobilinogen (Auto) Negative Ur Leukocyte Esterase Negative Urine RBC 0 Urine WBC < 1 Ur Squamous Epith Cells 0 Urine Bacteria Rare Ur Culture Indicated? Not Indicated Urine Opiates Screen Negative Urine Fentanyl Screen Negative Ur Barbiturates Screen Negative U Amphetamin/Meth Scrn Negative U Benzodiazepines Scrn Negative U Cocaine Metab Screen Negative U Marijuana (THC) Screen Negative RSV Rapid Negative Misc Test Result Platelets confirmed 12/10/24 05:40 WBC 7.2 RBC 3.96 L Hgb 12.7 L Hct 37.0 L MCV 93 MCH 32.1 MCHC 34.3 RDW Std Deviation 57.4 H Plt Count 67 L Neut % (Auto) 68 Lymph % (Auto) 19 Hale % (Auto) 11 Eos % (Auto) 1 Baso % (Auto) 0 Neut # (Auto) 4.9 Lymph # (Auto) 1.4 Hale # (Auto) 0.8 Eos # (Auto) 0.1 Baso # (Auto) 0.0 Immature Gran # (Auto) 0.03 H Absolute Nucleated RBC 0.00 Immature Gran % 0 Nucleated RBC % 0 PT INR APTT VBG pH VBG pCO2 VBG pO2 VBG O2 Sat (Ruddy) VBG Base Excess Sodium 140 Potassium 3.4 Chloride 106 Carbon Dioxide 24.2 Anion Gap 10 BUN 11 Creatinine 0.8 Estim Creat Clear Calc 157.9 eGFR > 60 BUN/Creatinine Ratio 14 Glucose 103 Calculated Osmolality 278 Lactic Acid Calcium 8.8 Corrected Calcium 9.0 Magnesium 1.5 L Total Bilirubin 3.3 H D AST 33 ALT 18 Alkaline Phosphatase 140 H Ammonia Troponin I B-Natriuretic Peptide Total Protein 6.9 Albumin 3.7 Globulin 3.2 Albumin/Globulin Ratio 1.2 TSH Thyroxine (T4) Ur Collection Type Urine Color Urine Clarity Urine pH Ur Specific [place] Urine Protein Urine Glucose (UA) Urine Ketones Urine Blood Urine Nitrite Urine Bilirubin Urine Urobilinogen (Auto) Ur Leukocyte Esterase Urine RBC Urine WBC Ur Squamous Epith Cells Urine Bacteria Ur Culture Indicated? Urine Opiates Screen Urine Fentanyl Screen Ur Barbiturates Screen U Amphetamin/Meth Scrn U Benzodiazepines Scrn U Cocaine Metab Screen U Marijuana (THC) Screen RSV Rapid Misc Test Result Platelets confirmed ABG Interpretation ABG results: 12/09/24 17:50 VBG pH 7.44 VBG pCO2 35 L VBG pO2 85 H VBG Base Excess 0 Quality Measures Quality Measures none Assessment & Plan Assessment Current Active Medications: Generic Name Dose Route Start Last Admin Trade Name Freq PRN Reason Stop Dose Admin Acetaminophen 500 mg 12/09/24 21:55 Acetaminophen 325 Mg Tablet PO 01/08/25 21:54 Q6H PRN Fever >101.5 Apixaban 5 mg 12/09/24 23:15 12/09/24 23:31 Apixaban 2.5 Mg Tablet PO 01/08/25 23:14 5 mg BID MARY Administration Artificial Tears 0 drop 12/10/24 03:35 Artificial Tears 225 Drop/15 Ml Btl BOTH EYES 01/09/25 03:34 PRN PRN TO KEEP EYES MOIST Ciprofloxacin 0 drop 12/09/24 22:15 12/10/24 06:07 Ciprofloxacin Op Yolette 0.3% 5 Ml Btl BOTH EYES 01/08/25 22:14 2 drop Q4HR MARY Administration Diltiazem HCl 120 mg 12/10/24 09:00 Diltiazem Er 90 Mg Er Capsule PO 01/09/25 08:59 Q12HR MARY Furosemide 40 mg 12/10/24 09:00 Furosemide Inj 10 Mg/Ml 4ml Vial IVP 01/09/25 08:59 QDAY MARY Amiodarone HCl/Dextrose 360 mg in 200 mls @ 16.667 mls/hr 12/10/24 03:58 12/10/24 03:41 Nexterone Ivpb IV 12/11/24 03:57 16.667 mls/hr .Q12H MARY Administration Potassium Chloride 10 meq in 100 mls @ 100 mls/hr 12/10/24 08:00 Kcl Ivpb IV 12/10/24 11:59 Q1H MARY Magnesium Sulfate 4 gm in 50 mls @ 12.5 mls/hr 12/10/24 07:53 Magnesium Sulfate Ivpb IV 12/10/24 11:52 X1 ONE Levalbuterol HCl 0.63 mg 12/09/24 21:55 12/09/24 22:27 Levalbuterol Rt 0.63 Mg/3 Ml Nebu INH 01/09/25 00:59 0.63 mg Q6HRRT PRN Administration sob or wheeze Magnesium Hydroxide 30 ml 12/09/24 21:55 Milk Of Magnesia Susp 30 Ml Udc PO 01/08/25 21:54 QDAY PRN CONSTIPATION Protocol Ondansetron HCl 4 mg 12/09/24 21:55 Ondansetron Inj 2 Mg/Ml Inj 2 Ml IV 01/08/25 21:54 Q6H PRN NAUSEA OR VOMITING Protocol Spironolactone 25 mg 12/10/24 09:00 Spironolactone 25 Mg Tablet PO 01/09/25 08:59 DAILY MARY Plan In summary: 44-year-old male PMHx of atrial flutter, HFrEF EF 40% 09/2024, cirrhosis, ESRD on dialysis, CVA, craniotomy 2021, admitted for a-flutter with RVR. Appreciate recommendation from cardiology team. Atrial flutter with RVR HFrEF, EF 40% 09/2024 ? Pericardial effusion Likely multifactorial, differential include: CHF exacerbation, paracardial effusion, decomp cirrhosis, tobacco/alcohol, electrolyte derangements. Presented with SOB, EKG showed A-fib with HR 148. Troponin was negative. Continued in a flutter despite DILTIAZEM pushes, DILTIAZEM drip, DIGOXIN IV. Subsequently continued on DILTIAZEM p.o. and AMIODARONE GGT. Heart rate still poorly controlled, 132 today. Will likely need cardioversion. Cardiology has been consulted. Admission BNP 448, significant bilateral LE edema. CXR showed enlarged cardiac silhouette, pericarditis not ruled out. Continued on diuresis, had 1.5 L urine output. Findings of decompensated cirrhosis including ascites, TB 3.9, mild transaminitis. Also had electrolyte abnormality including potassium 3.3, magnesium 1.5. Current tobacco/alcohol user, although U-Tox negative for alcohol. Normal thyroid function. Pending lipid panel. Unlikely pulmonary cause: CXR no PNA, negative influenza/COVID/RSV. ? Treating underlying cause ? Continue AMIODARONE gtt ? Continue DILTIAZEM 120 mg BID ? Continue home ELIQUIS milligram BID ([id number] 4) ? Continue FUROSEMIDE 40 mg IV daily ? Continue SPIRONOLACTONE 25 mg daily ? Maintain K>4.0 and Mag>2.0 ? Fluid and salt restrictions ? Strict EDDI ? Pending lipid panel ? Pending echocardiogram ? Pending cardiology recommendations Decompensated liver cirrhosis Ascites Thrombocytopenia Hyperbilirubinemia Presenting with lower extremity edema, ascites, TB 3.9, ammonia 34, AST 36. Ultrasound demonstrated cirrhosis, cholelithiasis, ascites, 3 x 2.6 cm right lobe liver lesion. ? Continue diuresis as above ? Continue CEFTRIAXONE SBP prophylaxis ? Pending paracentesis Electrolyte abnormalities 12/09 potassium 3.3 and magnesium 1.5, repleted 12/10 potassium 3.4, magnesium 1.5, repleted Bilateral conjunctivitis Complaining of bilateral eye pain, redness and thick discharge. Blepharitis vs. bacterial conjunctivitis. ? Continue artificial tears PRN ? Continue CIPROFLOXACIN eyedrops Hx of HTN Admission BP 123/96, likely volume overload. He is not on home ANTIHYPERTENSIVE meds. Currently normotensive ? Continue to monitor ? Will start antihypertensives as indicated. Health maintenance Diet: Low-sodium GI prophylaxis: Not indicated DVT prophylaxis: ELIQUIS Antibiotics: CEFTRIAXONE CODE STATUS: Full code Disposition: Pending cardiology workup Patient case was discussed with attending, Dr. Steve DARLING, and senior residents Dr. Ellis and Dr. Narvaez. Lance Huynh PGYI Senior Resident Attestation: The patient reported doing well. His heart rate was in 120's-130's. We will continue with amiodarone drip and was started on diltiazem 120mg ER BID. The patient underwent paracentesis and removed 7.55L ascitic fluid. Ordered, 50g IV albumin. We will continue with ceftriaxone and ascites fluid was significant for Polynuclear cell counts roughly 30, negative for SBP and SAAG score >1.1 significant for portal hypertension. We will continue with furosemide 40mg iv daily with spironolactone 25mg daily. I discussed with and supervised the application development intern physician involved in the care of this patient. I personally saw and examined the patient and discussed the assessment and plan with the entire medicine team, including my attending. I agree with the assessment and plan as documented above. Paul Narvaez MD PGY2 Internal Medicine Attending Provider Attestation/Addendum Patient admitted for atrial flutter, CHF, decompensated cirrhosis of the liver with ascites. Continue present care until heart rate. Continue to monitor vital signs.
--- NOTE | 2024-12-10 08:28 | ECHO_ITS ---
Transthoracic Echo Report Ht (in): 72 Wt (lb): 265 Exam Location: [facility] Status: Inpatient Contracts Paralegal: Camille Russo Indications: Procedure Performed: BP: 133 / 91 HR: 92 Rhythm: Sinus Technical Quality: Fair MEASUREMENTS (Male / Female) Normal Values 2D ECHO LV Diastolic Diameter PLAX 5.4 cm 4.2 - 5.9 / 3.9 - 5.3 cm LV Systolic Diameter PLAX 3.9 cm IVS Diastolic Thickness 1.2 cm 0.6 - 1.0 / 0.6 - 0.9 cm LVPW Diastolic Thickness 0.8 cm 0.6 - 1.0 / 0.6 - 0.9 cm LV Relative Wall Thickness 0.4 LVOT Diameter 2.2 cm LA Volume Index 40.9 cm?/m? 16 - 28 cm?/m? Ascending Aorta Diameter 3.2 cm M-MODE Aortic Root Diameter MM 3.0 cm LA Systolic Diameter MM 5.1 cm LA Ao Ratio MM 1.7 AV Cusp Separation MM 2.2 cm DOPPLER AV Peak Velocity 151.0 cm/s AV Peak Gradient 9.1 mmHg AV Mean Gradient 5.0 mmHg AV Velocity Time Integral 23.2 cm LVOT Peak Velocity 116.0 cm/s LVOT Peak Gradient 5.4 mmHg LVOT Velocity Time Integral 20.0 cm LVOT Cardiac Index 2782.8 cm?/min?m? AV Area Cont Eq vti 3.3 cm? AV Area Cont Eq pk 2.9 cm? MV Peak Velocity 105.0 cm/s MV Peak Gradient 4.4 mmHg MV Mean Velocity 82.3 cm/s MV Mean Gradient 3.0 mmHg MV Area PHT 4.1 cm? Mitral E Point Velocity 89.7 cm/s Mitral A Point Velocity 77.1 cm/s Mitral E to A Ratio 1.2 LV E' Lateral Velocity 5.8 cm/s Mitral E to LV E' Lateral Ratio 15.5 LV E' Septal Velocity 7.3 cm/s Mitral E to LV E' Septal Ratio 12.3 TR Peak Velocity 223.0 cm/s TR Peak Gradient 19.9 mmHg FINDINGS Left Ventricle Normal left ventricular size, wall thickness. Mild systolic dysfunction. The ejection fraction is visually estimated at 40%. Right Ventricle The right ventricle is mildly dilated. Normal systolic function. The estimated right ventricular sys tolic pressure, 36 mmHg. RAP 15. Left Atrium The left atrium is mildly dilated. Right Atrium The right atrium is mildly dilated. Atrial Septum The interatrial septum appears normal with no evidence of a shunt. Aorta The aorta is normal by two-dimensional, color flow and Doppler interrogation. Mitral Valve The mitral valve is normal by two-dimensional, color flow and Doppler interrogation. There is trace mitral valve regurgitation. Aortic Valve The aortic valve is trileaflet and normal by two-dimensional, color flow and Doppler interrogation. There is no significant aortic valve regurgitation. Tricuspid Valve The tricuspid valve is normal by two-dimensional, color flow and Doppler interrogation. There is mil d tricuspid valve regurgitation. Pulmonic Valve There is trace pulmonic valve regurgitation. Vessels The pulmonary artery appears normal. The inferior vena cava pulmonary and hepatic veins not well visualzied. Pericardium The pericardium is normal by two-dimensional imaging. There is a small to moderate circumferential pericardial effusion. There is tricuspid respitation variation. No cardiac tamponade. CONCLUSIONS Normal LV size. Moderate systolic dysfunction. Estimated EF 40% Mild RV dilatation. Normal RV function. Estimated RVSP 36mmHg. Mild biatrail dilatation Mild TR. Trace MR, PI There is a small to moderate circumferential pericardial effusion. No cardiac tamponade. Joselin Garcia (Electronically Signed) Final Date: 11 December 2024 13:00
[2024-12-10] MEDS: POTASSIUM CHL 10 mEq IVPB 10 MEQ/100 ML BAG 100 MEQ IV ×4 (09:18→15:35)
[2024-12-10] MEDS: Magnesium Sulfate 4 GM Ivpb 4 GM/50 ML BAG IV ×2 (09:21→21:30)
[2024-12-10] MEDS: FUROSEMIDE INJ 10 MG/ML 4ML VIAL 40 MG IVP (09:23)
[2024-12-10] MEDS: POTASSIUM CHLORIDE 20 mEq TABCR 40 MEQ PO (09:31)
[2024-12-10] MEDS: cefTRIAXone/D5w 1gm IV premix 50 ML IV (09:31)
[2024-12-10] MEDS: SPIRONOLACTONE 25 MG TABLET PO (09:32)
[2024-12-10 14:02] LABS: Peritoneal Fluid Mononuclear 94.5 %; Peritoneal Fluid Polynuclear 5.5 %; Peritoneal Fluid WBC 558 /cmm
[2024-12-10 14:09] LABS: Peritoneal Fluid Appearance Hazy; Peritoneal Fluid Color Yellow; RBC,Peritoneal Fluid 10000 /cmm
[2024-12-10 14:26] LABS: Albumin, Peritoneal Fluid 1.3 gm/dL; Amylase,Peritoneal Fluid < 20 IU/L; Glucose,Peritoneal Fluid 106 mg/dL; LDH,Peritoneal Fluid 91 IU/L; Protein Total,Peritoneal Fluid 2 g/dL
--- NOTE | 2024-12-10 14:42 | ESCONSULT_ITS ---
<Statement entered by Kathryn Live MD - 12/11/24 13:10> I personally evaluated the patient examined the patient admitted hospital again with recurrent atrial flutter fibrillation with rapid heart rate difficult to control with medical management as a history of cirrhosis of the liver and cardiomyopathy recommend continue amiodarone for now we will go ahead and do cardioversion tomorrow possibly continue amiodarone 200 mg twice daily afterwards. 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 Cardiology consulted for a flutter management and extensive cardiac history. Patient seen and assessed at bedside. Patient complaining of palpitations but no chest pain or shortness of breath at this time. Patient feels much better now that he had paracentesis with 7.5 L removed. Patient states he has been taking his diltiazem at home, and felt palpitations about 3 days ago along with the shortness of breath. cc:: cc: Lucas Wilson MD Exam Vital Signs Temp Pulse Resp BP Pulse Ox O2 Del Method O2 Flow Rate 98.2 F 120 H 20 129/90 H 95 Room Air 2 12/10/24 12:00 12/10/24 12:12/10/24 12:12/10/24 12:12/10/24 12:12/10/24 12:12/10/24 04:00 Narrative Exam General: Awake. ANO x 3, resting comfortably in bed. Heart: Tachycardic, no murmurs, rubs, or gallops. Lungs: Chest clear to auscultation anteriorly. Abdomen: Soft, distended, nontender, positive bowel sounds. Extremities: Bilateral lower extremity 2+ pedal edema extending up to the knees Results Labs 12/10/24 05:40 12/10/24 05:40 Labs: Short CBC 12/09/24 12/10/24 Range/Units 17:50 05:40 WBC 7.4 7.2 (3.8-10.6) Thou/mm3 Hgb 13.5 12.7 L (13.5-16.0) g/dL Hct 39.0 L 37.0 L (41.0-53.0) % Plt Count 76 L 67 L (140-440) Thou/mm3 BMP 12/09/24 12/10/24 17:50 05:40 Sodium 142 140 Potassium 3.3 L 3.4 Chloride 107 106 Carbon Dioxide 22.2 24.2 BUN 13 11 Creatinine 0.8 0.8 Glucose 89 103 Calcium 8.8 8.8 Cardiac Enzymes 12/09/24 Range/Units 17:50 Troponin I < 0.020 (0.0-0.045) ng/mL Liver Function 12/09/24 12/10/24 Range/Units 17:50 05:40 Total Bilirubin 3.9 H 3.3 H D (0.3-1.2) mg/dL AST 36 H 33 (0-34) U/L ALT 20 18 (10-49) U/L Alkaline Phosphatase 150 H 140 H (46-116) U/L Albumin 3.8 3.7 (3.5-5.0) gm/dL Urine 12/10/24 Range/Units 01:40 Urine Color Colorless A (Lt Yel-Yel) Urine Clarity Clear (Clear/Hazy) Urine pH 7.0 (5.0-7.0) Ur Specific [place] 1.006 (1.001-1.035) Urine Protein Negative (Neg - Trace) Urine Glucose (UA) Negative (Negative) ABG Interpretation ABG results: 12/09/24 17:50 VBG pH 7.44 VBG pCO2 35 L VBG pO2 85 H VBG Base Excess 0 Quality Measures Quality Measures none Medications Home Medications and Allergies Home Medications ?Medication ?Instructions ?Recorded ?Confirmed ?Type cholecalciferol (vitamin D3) 25 25 mcg PO DAILY 01/01/23 12/10/24 History mcg (1,000 unit) tablet folic acid 1 mg tablet 1 mg PO DAILY 01/01/23 12/10/24 History loratadine 10 mg tablet 20 mg PO DAILY 01/01/23 12/10/24 History pantoprazole 20 mg tablet,delayed 20 mg PO DAILY 01/01/23 12/10/24 History release spironolactone 25 mg tablet 25 mg PO DAILY 01/01/23 12/10/24 History vitamin B6-vitamin E-magnesium 1 tab PO QDAY 02/19/24 12/10/24 History tablet apixaban 5 mg tablet (Eliquis) 5 mg PO BID 12/10/24 12/10/24 History diltiazem HCl 120 mg 120 mg PO QAM 12/10/24 12/10/24 History tablet,extended release 24 hr (Cardizem LA) lactulose 10 gram/15 mL (15 mL) 15 ml PO QDAY 12/10/24 12/10/24 History oral solution Allergies Allergy/AdvReac Type Severity Reaction Status Date / Time No Known Allergies Allergy Verified 12/09/24 16:29 Visit Medications Acetaminophen (Acetaminophen 325 Mg Tablet) 500 mg PO Q6H PRN PRN Reason: Fever >101.5 Stop: 01/08/25 21:54 Apixaban (Apixaban 2.5 Mg Tablet) 5 mg PO BID [facility] Stop: 01/08/25 23:14 Last Admin: 12/10/24 08:45 Dose: Not Given Artificial Tears (Artificial Tears 225 Drop/15 Ml Btl) 0 drop BOTH EYES PRN PRN PRN Reason: TO KEEP EYES MOIST Stop: 01/09/25 03:34 Ciprofloxacin (Ciprofloxacin Op Yolette 0.3% 5 Ml Btl) 0 drop BOTH EYES Q4HR MARY Stop: 01/08/25 22:14 Last Admin: 12/10/24 11:00 Dose: 1 drop Diltiazem HCl (Diltiazem Er 90 Mg Er Capsule) 120 mg PO Q12HR MARY Stop: 01/09/25 08:59 Furosemide (Furosemide Inj 10 Mg/Ml 4ml Vial) 40 mg IVP QDAY MARY Stop: 01/09/25 08:59 Last Admin: 12/10/24 09:23 Dose: 40 mg Amiodarone HCl/Dextrose (Nexterone Ivpb) 360 mg in 200 mls @ 16.667 mls/hr IV .Q12H MARY Stop: 12/11/24 03:57 Last Admin: 12/10/24 03:41 Dose: 16.667 mls/hr Ceftriaxone Sodium/Dextrose (Rocephin/D5w 1gm Iv Premix) 50 mls @ 100 mls/hr IV QDAY MARY Stop: 12/17/24 08:15 Last Infusion: 12/10/24 10:05 Dose: Infused Levalbuterol HCl (Levalbuterol Rt 0.63 Mg/3 Ml Nebu) 0.63 mg INH Q6HRRT PRN PRN Reason: sob or wheeze Stop: 01/09/25 00:59 Last Admin: 12/09/24 22:27 Dose: 0.63 mg Magnesium Hydroxide (Milk Of Magnesia Susp 30 Ml Udc) 30 ml PO QDAY PRN; Protocol PRN Reason: CONSTIPATION Stop: 01/08/25 21:54 Ondansetron HCl (Ondansetron Inj 2 Mg/Ml Inj 2 Ml) 4 mg IV Q6H PRN; Protocol PRN Reason: NAUSEA OR VOMITING Stop: 01/08/25 21:54 Spironolactone (Spironolactone 25 Mg Tablet) 25 mg PO DAILY [facility] Stop: 01/09/25 08:59 Last Admin: 12/10/24 09:32 Dose: 25 mg Discontinued Medications Digoxin (Digoxin Inj 0.25 Mg/Ml Amp 2 Ml) 0.5 mg IVP X1 ONE Stop: 12/09/24 20:44 Last Admin: 12/09/24 21:10 Dose: 0.5 mg Diltiazem HCl (Diltiazem Inj 5 Mg/Ml Vial 5 Ml) 10 mg IV X1 ONE Stop: 12/09/24 17:27 Last Admin: 12/09/24 17:59 Dose: 10 mg Diltiazem HCl (Diltiazem Inj 5 Mg/Ml Vial 5 Ml) 10 mg IV X1 ONE Stop: 12/09/24 18:10 Last Admin: 12/09/24 18:11 Dose: 10 mg Diltiazem HCl (Diltiazem Inj 5 Mg/Ml Vial 5 Ml) 25 mg IV X1 ONE Stop: 12/09/24 19:55 Last Admin: 12/09/24 20:05 Dose: 25 mg Furosemide (Furosemide Inj 10 Mg/Ml Vial 2 Ml) 40 mg IVP X1 ONE Stop: 12/10/24 00:01 Last Admin: 12/10/24 00:19 Dose: 40 mg Diltiazem HCl 125 mg/ Dextrose 125 mls @ 5 mls/hr IV .Q24H [facility] Stop: 01/08/25 17:26 Last Infusion: 12/09/24 21:35 Dose: Infused Amiodarone HCl/Dextrose (Nexterone Ivpb) 150 mg in 100 mls @ 600 mls/hr IV .Q10M ONE Stop: 12/09/24 21:22 Last Infusion: 12/09/24 21:53 Dose: Infused Potassium Chloride (Kcl Ivpb) 10 meq in 100 mls @ 100 mls/hr IV Q1H [facility] Stop: 12/09/24 23:29 Last Admin: 12/09/24 22:57 Dose: 100 mls/hr Amiodarone HCl/Dextrose (Nexterone Ivpb) 360 mg in 200 mls @ 33.333 mls/hr IV .Q6H ONE Stop: 12/10/24 03:58 Last Admin: 12/09/24 22:24 Dose: 33.333 mls/hr Magnesium Sulfate (Magnesium Sulfate Ivpb) 4 gm in 50 mls @ 12.5 mls/hr IV X1 ONE Stop: 12/10/24 01:59 Last Admin: 12/09/24 22:22 Dose: 12.5 mls/hr Potassium Chloride (Kcl Ivpb) 10 meq in 100 mls @ 100 mls/hr IV Q1H [facility] Stop: 12/10/24 11:59 Last Admin: 12/10/24 12:00 Dose: 100 mls/hr Magnesium Sulfate (Magnesium Sulfate Ivpb) 4 gm in 50 mls @ 12.5 mls/hr IV X1 ONE Stop: 12/10/24 11:52 Last Admin: 12/10/24 09:21 Dose: 12.5 mls/hr Potassium Chloride (Potassium Chloride 20 Meq Tabcr) 40 meq PO X1 ONE Stop: 12/09/24 21:31 Last Admin: 12/09/24 21:46 Dose: 40 meq Potassium Chloride (Potassium Chloride 20 Meq Tabcr) 20 meq PO X1 ONE Stop: 12/09/24 22:04 Last Admin: 12/09/24 22:31 Dose: 20 meq Potassium Chloride (Potassium Chloride 20 Meq Tabcr) 40 meq PO X1 ONE Stop: 12/10/24 07:54 Last Admin: 12/10/24 09:31 Dose: 40 meq Assessment & Plan Plan Patient is a 44-year-old male with past medical history of cirrhosis, hypertension, hepatorenal syndrome s/p ESRD and on dialysis for 3 years from 6316-1695, CVA, 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 Cardiology consulted for a flutter management and extensive cardiac history. Atrial flutter with RVR HFrEF, EF 40% 09/2024 Patient currently on amnio drip and diltiazem 120 every 12 hours Continue home ELIQUIS 5mg BID ([id number] 4) Maintain K>4.0 and Mag>2.0 Fluid and salt restrictions Strict EDDI Follow-up cardiac echo Will do cardioversion tomorrow. Keep NPO after midnight. Decompensated liver cirrhosis Ascites Thrombocytopenia Hyperbilirubinemia Electrolyte abnormalities Bilateral conjunctivitis Hx of HTN Continue management per primary team Case discussed with attending biscuitware brusher Dr. Calos Maria MD PGY3
--- NOTE | 2024-12-10 15:53 | PC.SS ---
Patient is alert/oriented. Patient resides at home alone. Independent with ADL's. Patient was admitted for AFIB/RVR. Patient states he follows with Dr. Mallory @ [facility]. Last appt was this Sunday. Patient does not see a Ruching Machine Operator as o/p. Hx: alcohol abuse and last time drank alcohol was in 2018. Patient alt medical decision maker is his friend, Laueren Luna. No family involvement. Pharmacy: [email or web address]. D/c plan is to return home.
--- NOTE | 2024-12-10 17:30 | PC.NURSE ---
DR ALANIS CALLED INFORMED PATIENTS HR HAS SLOWLY GONE UP SINCE 12NOON. IT HAS BEEN 120-140. ASKED IF CARDIZEM ORDERED PO GIVEN THIS MORNING INFORMED NOT NOT GIVEN MED NOT AVAILABLE. STATED TO GIVE THE DOSE NOW. NOT [facility] CALLED, STATED THEY DONT CARRY IT, ASKED WHY DIDNT THE DR GET CALLED THIS AM WHEN ORDERED. STATED WOULD CALL DR NOW.
[2024-12-10] MEDS: DILTIAZEM CD 120 MG CAPCR PO (17:56)
[2024-12-10] MEDS: Artificial Tears 225 DROP/15 ML BTL BOTH EYES (18:30)
[2024-12-10] MEDS: APIXABAN 2.5 MG TABLET 5 MG PO (21:29)
[2024-12-10] MEDS: ALBUMIN HUMAN 25% IVPB 25 GM/100 ML BTL IV ×2 (21:30→23:23)
[2024-12-10] MEDS: ACETAMINOPHEN 325 MG TABLET 500 MG PO (21:34)
[2024-12-11] VITALS (20 sets, daily range): BP systolic 110–134; BP diastolic 79–98; PULSE 92–139; RESP 14–20; TEMP 36.1–36.8; O2SAT 93–99; BMI 33.8
[2024-12-11 06:06] LABS: Basophils % (Auto) 1 % (0-2.5); Immature Granulocytes % (Auto) 0 % (0-0); Lymphocytes # (Auto) 1.6 Thou/mm3 (1.0-4.8); Lymphocytes % (Auto) 22 % (10-50); Mean Corpuscular Volume 94 fL (80-100); Neutrophils # (Auto) 4.6 Thou/mm3 (1.8-7.7); Neutrophils % (Auto) 63 % (37-80); Nucleated Red Blood Cell % 0 /100 WBC (0)
[2024-12-11 06:07] LABS: Eosinophils # (Auto) 0.2 Thou/mm3 (0.0-0.5); Eosinophils % (Auto) 3 % (0-10); Hematocrit 37.2 % (41.0-53.0); Hemoglobin 12.7 g/dL (13.5-16.0); Immature Granulocytes Auto 0.03 Thou/mm3 (0.00-0.00); Mean Corpuscular HGB Conc 34.1 g/dl (31.0-37.0); Mean Corpuscular Hemoglobin 32.1 pg (25.0-35.0); Monocytes # (Auto) 0.8 Thou/mm3 (0.0-0.8); Monocytes % (Auto) 11 % (0-12); RDW Standard Deviation 57.6 fL (35.1-43.9); Red Blood Count 3.96 Miln/mm3 (4.50-5.90); White Blood Count 7.3 Thou/mm3 (3.8-10.6)
[2024-12-11] MEDS: CIPROFLOXACIN OP SOL 0.3% 5 ML BTL BOTH EYES ×5 (06:09→20:34)
[2024-12-11 06:10] LABS: Platelet Count 79 Thou/mm3 (140-440)
[2024-12-11 06:33] LABS: Slide Review Platelets confirmed
[2024-12-11 06:50] LABS: Alanine Aminotransferase 15 U/L (10-49); Albumin, Serum 3.9 gm/dL (3.5-5.0); Albumin/Globulin Ratio 1.3 (1.2-2.2); Alkaline Phosphatase 127 U/L (46-116); Anion Gap 9 (7-16); Aspartate Amino Transferase 27 U/L (0-34); BUN/Creatinine Ratio 13 Ratio (12-20); Bilirubin,Total 2.4 mg/dL (0.3-1.2); Blood Urea Nitrogen 13 mg/dL (9-23); Calcium 8.7 mg/dL (8.3-10.6); Calcium (Corrected) 8.8 mg/dL (8.5-10.1); Carbon Dioxide 24.7 mMol/L (20.0-31.0); Cardiac Risk Estimate 3.7 RATIO (4.0-6.7); Chloride 104 mMol/L (98-107); Cholesterol 84 mg/dL (132-200); Estimated Creatinine Clearance 122.5 mL/min (>60); Globulin 2.9 gm/dL (2.3-3.5); Glucose 102 mg/dL (74-106); HDL Cholesterol 23 mg/dL (40-60); LDL Cholesterol,Calculated 46 mg/dL (0-130); Magnesium 2.4 mg/dL (1.6-2.6); Osmolality,Calculated 275 (275-295); Phosphorous 2.8 mg/dL (2.4-5.1); Potassium 3.3 mMol/L (3.4-5.1); Sodium 138 mMol/L (136-145); Total Protein 6.8 gm/dL (5.7-8.2); Triglycerides 77 mg/dL (30-150); eGFR > 60 See Note
[2024-12-11] MEDS: POTASSIUM CHL 10 mEq IVPB 10 MEQ/100 ML BAG 100 MEQ IV (07:52)
[2024-12-11] MEDS: APIXABAN 2.5 MG TABLET 5 MG PO ×2 (08:47→20:32)
[2024-12-11] MEDS: fentaNYL CIT INJ 50 mCg/ML AMP 2ML 100 MCG IV (08:58)
[2024-12-11] MEDS: MIDAZOLAM INJ 1 MG/ML VIAL 2 ML 4 MG IV (08:58)
--- NOTE | 2024-12-11 09:12 | EKG_ITS ---
[facility] Test Date: 2024-12-11 Pat Name: PATRICA MCLEAN [facility] Male [place] Supervisor: : 1980 Requested By: Kathryn Duval Order Number: [id number] Reading MD: Kathryn Duval Measurements Intervals Arbuckle Rate: 92 P: 45 MS: 180 QRS: 30 QRSD: 83 T: 52 QT: 362 QTc: 449 Interpretive Statements SINUS RHYTHM LOW QRS VOLTAGE Compared to ECG 12/09/2024 16:43:44 Atrial flutter no longer present Indeterminate axis no longer present Myocardial infarct finding no longer present /store/S0/[id number].pdf
[2024-12-11] MEDS: cefTRIAXone/D5w 1gm IV premix 50 ML IV (10:24)
[2024-12-11] MEDS: POTASSIUM CHL 10 mEq IVPB 10 MEQ/100 ML BAG 75 MEQ IV (10:26)
[2024-12-11] MEDS: POTASSIUM CHLORIDE 20 mEq TABCR 40 MEQ PO (10:28)
[2024-12-11] MEDS: DILTIAZEM CD 120 MG CAPCR PO (10:29)
[2024-12-11] MEDS: SPIRONOLACTONE 25 MG TABLET PO (10:30)
[2024-12-11] MEDS: FUROSEMIDE INJ 10 MG/ML 4ML VIAL 40 MG IVP (10:31)
[2024-12-11] MEDS: POTASSIUM CHL 10 mEq IVPB 10 MEQ/100 ML BAG 70 MEQ IV ×2 (12:24→14:12)
[2024-12-11] MEDS: AMIODARONE HCL 200 MG TABLET PO (13:35)
--- NOTE | 2024-12-11 14:45 | ESPR_ITS ---
Documentation for date of: 12/11/24 Subjective Subjective Interval history: This patient after cardioversion. He was sleeping comfortably. Per nurse, he was doing well after cardioversion. Will revisit patient later today. Exam Vital Signs Temp Pulse Resp BP Pulse Ox O2 Del Method O2 Flow Rate 97.7 F 100 15 129/97 H 93 L Room Air 3 12/11/24 12:00 12/11/24 13:35 12/11/24 12:00 12/11/24 13:35 12/11/24 12:00 12/11/24 12:00 12/11/24 09:15 Narrative Exam GENERAL * Obese, no apparent distress. HEENT * NCAT.?KITTY. Oral mucosa is moist. Patent Nares NECK * Supple, nontender, no thyromegaly, no meningismus, no JVD, no step offs CHEST * HR 102, regular rhythm, no m/g/r * CTAB, no w/r/r. Symmetrical chest rise. No intercostal subcostal retraction * Atraumatic, nontender, no crepitus, symmetrical expansion. ABDOMEN * Distended, tense, nontender. No guarding/rebound tenderness/masses. * Bowel sounds presents EXTREMITIES * Bilateral lower extremity 2+ pitting edema, chronic venous stasis changes with mild tenderness to palpation. * No edema/cyanosis.? SKIN * Warm and dry, no jaundice/rashes. NEUROMUSCULAR * No lumbar or midline, no CVA, no paraspinal muscle spasm or tenderness. * Moves all 4 extremities well, with full ROM and good CSM. * DURAN x4, CN II-XII grossly intact. * No focal neurologic deficits. PSYCHIATRY * Normal mood and affect, cooperative, no SI or HI or hallucinations. Objective Labs 12/11/24 04:30 12/11/24 04:30 Labs: Laboratory Results - last 24 hr 12/11/24 04:30 WBC 7.3 RBC 3.96 L Hgb 12.7 L Hct 37.2 L MCV 94 MCH 32.1 MCHC 34.1 RDW Std Deviation 57.6 H Plt Count 79 L Neut % (Auto) 63 Lymph % (Auto) 22 Pierce % (Auto) 11 Eos % (Auto) 3 Baso % (Auto) 1 Neut # (Auto) 4.6 Lymph # (Auto) 1.6 Pierce # (Auto) 0.8 Eos # (Auto) 0.2 Baso # (Auto) 0.0 Immature Gran # (Auto) 0.03 H Absolute Nucleated RBC 0.00 Immature Gran % 0 Nucleated RBC % 0 Sodium 138 Potassium 3.3 L Chloride 104 Carbon Dioxide 24.7 Anion Gap 9 BUN 13 Creatinine 1.0 Estim Creat Clear Calc 122.5 eGFR > 60 BUN/Creatinine Ratio 13 Glucose 102 Calculated Osmolality 275 Calcium 8.7 Corrected Calcium 8.8 Phosphorus 2.8 Magnesium 2.4 Total Bilirubin 2.4 H D AST 27 ALT 15 Alkaline Phosphatase 127 H Total Protein 6.8 Albumin 3.9 Globulin 2.9 Albumin/Globulin Ratio 1.3 Triglycerides 77 Cholesterol 84 L LDL Cholesterol, Calc 46 HDL Cholesterol 23 L Cholesterol/HDL Ratio 3.7 L Misc Test Result Platelets confirmed ABG Interpretation ABG results: 12/09/24 17:50 VBG pH 7.44 VBG pCO2 35 L VBG pO2 85 H VBG Base Excess 0 Quality Measures Quality Measures none Assessment & Plan Assessment Current Active Medications: Generic Name Dose Route Start Last Admin Trade Name Freq PRN Reason Stop Dose Admin Acetaminophen 500 mg 12/11/24 10:46 Acetaminophen 500 Mg Tablet PO 01/08/25 21:54 Q6H PRN Temp>100.3 Amiodarone HCl 200 mg 12/11/24 13:30 12/11/24 13:35 Amiodarone Hcl 200 Mg Tablet PO 01/10/25 13:29 200 mg QDAY MARY Administration Apixaban 5 mg 12/09/24 23:15 12/11/24 08:47 Apixaban 2.5 Mg Tablet PO 01/08/25 23:14 5 mg BID MARY Administration Artificial Tears 0 drop 12/10/24 03:35 12/10/24 18:30 Artificial Tears 225 Drop/15 Ml Btl BOTH EYES 01/09/25 03:34 1 drop PRN PRN Administration TO KEEP EYES MOIST Ciprofloxacin 0 drop 12/09/24 22:15 12/11/24 13:36 Ciprofloxacin Op Yolette 0.3% 5 Ml Btl BOTH EYES 01/08/25 22:14 2 drop Q4HR MARY Administration Diltiazem HCl 120 mg 12/11/24 09:00 12/11/24 10:29 Diltiazem Cd 120 Mg Capcr PO 01/10/25 08:59 120 mg QDAY MARY Administration Furosemide 40 mg 12/10/24 09:00 12/11/24 10:31 Furosemide Inj 10 Mg/Ml 4ml Vial IVP 01/09/25 08:59 40 mg QDAY MARY Administration Ceftriaxone Sodium/Dextrose 50 mls @ 100 mls/hr 12/10/24 08:16 12/11/24 10:24 Rocephin/D5w 1gm Iv Premix IV 12/17/24 08:15 100 mls/hr QDAY MARY Administration Levalbuterol HCl 0.63 mg 12/09/24 21:55 12/09/24 22:27 Levalbuterol Rt 0.63 Mg/3 Ml Nebu INH 01/09/25 00:59 0.63 mg Q6HRRT PRN Administration sob or wheeze Magnesium Hydroxide 30 ml 12/09/24 21:55 Milk Of Magnesia Susp 30 Ml Udc PO 01/08/25 21:54 QDAY PRN CONSTIPATION Protocol Ondansetron HCl 4 mg 12/09/24 21:55 Ondansetron Inj 2 Mg/Ml Inj 2 Ml IV 01/08/25 21:54 Q6H PRN NAUSEA OR VOMITING Protocol Spironolactone 25 mg 12/10/24 09:00 12/11/24 10:30 Spironolactone 25 Mg Tablet PO 01/09/25 08:59 25 mg DAILY MARY Administration Plan In summary: 44-year-old male PMHx of atrial flutter, HFrEF EF 40% 09/2024, cirrhosis, ESRD on dialysis, CVA, craniotomy 2021, admitted for a-flutter with RVR. Continued on DILTIAZEM p.o. and AMIODARONE drip without improvement in heart rate. Subsequently underwent cardioversion this morning 12/11. Heart rate seems to be controlled. Appreciate recommendation from cardiology team. Atrial flutter with RVR HFrEF, EF 40% 09/2024 Small-mod pericardial effusion S/p successful cardioversion Likely multifactorial, differential include: CHF exacerbation, paracardial effusion, decomp cirrhosis, tobacco/alcohol, electrolyte derangements. Presented with SOB, EKG showed A-fib with HR 148. Troponin was negative. Continued in a flutter despite multiple ANTIARRHYTHMIC meds. Subsequently underwent cardioversion cardiology. Heart rate seems to be controlled. Echocardiac showed small to moderate circumferential pericardial effusion without tamponade, moderate systolic dysfunction with EF 40%, mild RV dilation, mild biatrial dilation. Admission BNP 448, significant bilateral LE edema. CXR showed enlarged cardiac silhouette, pericarditis not ruled out. Continued on diuresis, had 1.5 L urine output. Findings of decompensated cirrhosis including ascites, TB 3.9, mild transaminitis. Also had electrolyte abnormality including potassium 3.3, magnesium 1.5, which were corrected. Current tobacco/alcohol user, although U-Tox negative for alcohol. Normal thyroid function. Lipid panel WNL. Unlikely pulmonary cause: CXR no PNA, negative influenza/COVID/RSV. ? Continue AMIODARONE 200 BID ? Continue DILTIAZEM 120 mg BID ? Continue home ELIQUIS milligram BID ([id number]) ? Continue FUROSEMIDE 40 mg IV daily ? Continue SPIRONOLACTONE 25 mg daily ? Maintain K>4.0 and Mag>2.0 ? Fluid and salt restrictions ? Strict EDDI ? Pending cardiology recommendations Decompensated liver cirrhosis Ascites Thrombocytopenia Hyperbilirubinemia Presenting with lower extremity edema, ascites, TB 3.9, ammonia 34, AST 36. Ultrasound demonstrated cirrhosis, cholelithiasis, ascites, 3 x 2.6 cm right lobe liver lesion. Paracentesis removed 7.4 L fluids. SAAG suggested portal hypertension origin. ? Continue diuresis as above ? Continue CEFTRIAXONE SBP prophylaxis ? Pending paracentesis Electrolyte abnormalities 12/09 potassium 3.3 and magnesium 1.5, repleted 12/10 potassium 3.4, magnesium 1.5, repleted Bilateral conjunctivitis Complaining of bilateral eye pain, redness and thick discharge. Blepharitis vs. bacterial conjunctivitis. ? Continue artificial tears PRN ? Continue CIPROFLOXACIN eyedrops Hx of HTN Admission BP 123/96, likely volume overload. He is not on home ANTIHYPERTENSIVE meds. Currently normotensive ? Continue to monitor ? Will start antihypertensives as indicated. Health maintenance Diet: Low-sodium GI prophylaxis: Not indicated DVT prophylaxis: ELIQUIS Antibiotics: CEFTRIAXONE CODE STATUS: Full code Disposition: Pending cardiology workup Patient case was discussed with attending, Dr. Steve DARLING, and senior residents Dr. Ellis and Dr. Narvaez. Lance Huynh, DO PGYI Senior Resident Attestation: The patient reported doing well. His heart rate was in 110's. The patient was cardioverted by Dr. Kim Live. We will continue with amiodarone 200 Mg twice daily and on diltiazem 120mg ER BID. His heart rate has been stable in 90-110 after cardioversion. We will continue to monitor him on tele, monitor electrolytes and replete as needed, K >4 and Mg >2. Continue on IV lasix 40mg daily and spironolactone was increased to 100mg daily. I discussed with and supervised the rn internal medicine physician involved in the care of this patient. I personally saw and examined the patient and discussed the assessment and plan with the entire medicine team, including my attending. I agree with the assessment and plan as documented above. Paul Narvaez MD PGY2 Internal Medicine Attending Provider Attestation/Addendum Patient is status post cardioversion procedure. Patient had atrial flutter. Vital signs are stable. The patient is sleeping. Will continue amiodarone and diltiazem p.o.
[2024-12-11] MEDS: SPIRONOLACTONE 25 MG TABLET 50 MG PO (15:58)
--- NOTE | 2024-12-11 16:50 | ESPR_ITS ---
<Statement entered by Kathryn iLve MD - 12/14/24 13:16> I personally evaluated this patient admitted hospital atrial flutter evaluate the patient agree with the treatment plan recommendation as documented by PGY 2 Dr. Miko Maria will plan on performing cardioversion Documentation for date of: 12/11/24 Subjective Subjective Interval history: Patient seen and assessed at bedside. Patient had cardioversion done earlier today. Heart rate now in the 90s to low 100s. Patient tolerated cardioversion well and states to be feeling better. Patient denying any chest pain or palpitations at this time. Exam Vital Signs Temp Pulse Resp BP Pulse Ox O2 Del Method O2 Flow Rate 97.7 F 101 H 15 117/89 H 95 Room Air 3 12/11/24 16:00 12/11/24 16:00 12/11/24 16:00 12/11/24 16:00 12/11/24 16:00 12/11/24 16:00 12/11/24 09:15 Narrative Exam General: Awake. ANO x 3, resting comfortably in bed. Heart: Tachycardic, no murmurs, rubs, or gallops. Lungs: Chest clear to auscultation anteriorly. Abdomen: Soft, distended, nontender, positive bowel sounds. Extremities: Bilateral lower extremity 1+ pedal edema extending up to the knees Objective Labs 12/11/24 04:30 12/11/24 04:30 Labs: Laboratory Results - last 24 hr 12/11/24 04:30 WBC 7.3 RBC 3.96 L Hgb 12.7 L Hct 37.2 L MCV 94 MCH 32.1 MCHC 34.1 RDW Std Deviation 57.6 H Plt Count 79 L Neut % (Auto) 63 Lymph % (Auto) 22 Lewis % (Auto) 11 Eos % (Auto) 3 Baso % (Auto) 1 Neut # (Auto) 4.6 Lymph # (Auto) 1.6 Lewis # (Auto) 0.8 Eos # (Auto) 0.2 Baso # (Auto) 0.0 Immature Gran # (Auto) 0.03 H Absolute Nucleated RBC 0.00 Immature Gran % 0 Nucleated RBC % 0 Sodium 138 Potassium 3.3 L Chloride 104 Carbon Dioxide 24.7 Anion Gap 9 BUN 13 Creatinine 1.0 Estim Creat Clear Calc 122.5 eGFR > 60 BUN/Creatinine Ratio 13 Glucose 102 Calculated Osmolality 275 Calcium 8.7 Corrected Calcium 8.8 Phosphorus 2.8 Magnesium 2.4 Total Bilirubin 2.4 H D AST 27 ALT 15 Alkaline Phosphatase 127 H Total Protein 6.8 Albumin 3.9 Globulin 2.9 Albumin/Globulin Ratio 1.3 Triglycerides 77 Cholesterol 84 L LDL Cholesterol, Calc 46 HDL Cholesterol 23 L Cholesterol/HDL Ratio 3.7 L Misc Test Result Platelets confirmed ABG Interpretation ABG results: 12/09/24 17:50 VBG pH 7.44 VBG pCO2 35 L VBG pO2 85 H VBG Base Excess 0 Quality Measures Quality Measures none Assessment & Plan Assessment Current Active Medications: Generic Name Dose Route Start Last Admin Trade Name Freq PRN Reason Stop Dose Admin Acetaminophen 500 mg 12/11/24 10:46 Acetaminophen 500 Mg Tablet PO 01/08/25 21:54 Q6H PRN Temp>100.3 Amiodarone HCl 200 mg 12/11/24 13:30 12/11/24 13:35 Amiodarone Hcl 200 Mg Tablet PO 01/10/25 13:29 200 mg QDAY MARY Administration Apixaban 5 mg 12/09/24 23:15 12/11/24 08:47 Apixaban 2.5 Mg Tablet PO 01/08/25 23:14 5 mg BID MARY Administration Artificial Tears 0 drop 12/10/24 03:35 12/10/24 18:30 Artificial Tears 225 Drop/15 Ml Btl BOTH EYES 01/09/25 03:34 1 drop PRN PRN Administration TO KEEP EYES MOIST Ciprofloxacin 0 drop 12/09/24 22:15 12/11/24 13:36 Ciprofloxacin Op Yolette 0.3% 5 Ml Btl BOTH EYES 01/08/25 22:14 2 drop Q4HR MARY Administration Diltiazem HCl 120 mg 12/11/24 09:00 12/11/24 10:29 Diltiazem Cd 120 Mg Capcr PO 01/10/25 08:59 120 mg QDAY MARY Administration Furosemide 40 mg 12/10/24 09:00 12/11/24 10:31 Furosemide Inj 10 Mg/Ml 4ml Vial IVP 01/09/25 08:59 40 mg QDAY MARY Administration Ceftriaxone Sodium/Dextrose 50 mls @ 100 mls/hr 12/10/24 08:16 12/11/24 10:24 Rocephin/D5w 1gm Iv Premix IV 12/17/24 08:15 100 mls/hr QDAY MARY Administration Levalbuterol HCl 0.63 mg 12/09/24 21:55 12/09/24 22:27 Levalbuterol Rt 0.63 Mg/3 Ml Nebu INH 01/09/25 00:59 0.63 mg Q6HRRT PRN Administration sob or wheeze Magnesium Hydroxide 30 ml 12/09/24 21:55 Milk Of Magnesia Susp 30 Ml Udc PO 01/08/25 21:54 QDAY PRN CONSTIPATION Protocol Ondansetron HCl 4 mg 12/09/24 21:55 Ondansetron Inj 2 Mg/Ml Inj 2 Ml IV 01/08/25 21:54 Q6H PRN NAUSEA OR VOMITING Protocol Spironolactone 100 mg 12/12/24 09:00 Spironolactone 25 Mg Tablet PO 01/11/25 08:59 DAILY MARY Plan Patient is a 44-year-old male with past medical history of cirrhosis, hypertension, hepatorenal syndrome s/p ESRD and on dialysis for 3 years from [id number], CVA, 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 Cardiology consulted for a flutter management and extensive cardiac history. Atrial flutter with RVR HFrEF, EF 40% 09/2024 Patient switched to oral amiodarone 200 milligrams once daily, will stop diltiazem. Continue home ELIQUIS 5mg BID ([id number]) Maintain K>4.0 and Mag>2.0 Fluid and salt restrictions Strict EDDI Cardiac echo shows: Normal LV size. Moderate systolic dysfunction. Estimated EF 40% Mild RV dilatation. Normal RV function. Estimated RVSP 36mmHg. Mild biatrail dilatation Mild TR. Trace MR, PI There is a small to moderate circumferential pericardial effusion. No cardiac tamponade. Decompensated liver cirrhosis Pericardial fluid Ascites Thrombocytopenia Hyperbilirubinemia Electrolyte abnormalities Bilateral conjunctivitis Hx of HTN Continue management per primary team Case discussed with attending combination presser Dr. Calos Maria MD PGY3
[2024-12-11] MEDS: LEVALBUTEROL RT 0.63 MG/3 ML NEBU INH (20:59)
[2024-12-11] MEDS: ACETAMINOPHEN 500 MG TABLET PO (23:09)
--- NOTE | 2024-12-11 23:59 | ESOP_ITS ---
RE: PATRICA MCLEAN : 1980 DATE OF OPERATION: 12/11/2024 PROCEDURE PERFORMED: 1. Synchronized Cardioversion. 2. Conscious sedation 30 minutes duration DIAGNOSIS: Atrial flutter, fibrillation with rapid heart rate. POST PROCEDURE DIAGNOSES: Successful synchronic cardioversion atrial flutter to sinus rhythm HISTORY AND INDICATIONS: The patient is a 44-year-old male with history of recurrent atrial flutter fibrillation, hospitalization in two different times. On medical management, doing well until now. The patient is having difficulty controlling heart rate despite medical management and atrial flutter has always been difficult to control hence recommended to a synchronized cardiovascular. DESCRIPTION OF PROCEDURE: The patient was given conscious sedation 4 mg of Versed, 100 mcg of fentanyl. Synchronized cardioversion was successfully performed by using 100 units of energy x1, converted to sinus rhythm. Underwent successful synchronized cardioversion, atrial fibrillation sinus rhythm. RECOMMENDATIONS: Continue medical management. I would recommend continuing amiodarone oral 200 mg once a day to maintain sinus rhythm. The patient can be discharged home later if he feels well on current medications. Though the patient has history of previous liver disease, no active liver problems, hence we will go ahead and continue amiodarone, watch for any liver dysfunction as an outpatient. Sotalol and other antiarrhythmic drugs are contraindicated because of low ejection fraction and HFrEF. DT: 13:17:40 TT: 19:34:00 Ref: [id number] - TID: [id number]
[2024-12-12] VITALS (10 sets, daily range): BP systolic 115–126; BP diastolic 70–95; PULSE 91–104; RESP 14–21; TEMP 36.3–36.8; O2SAT 93–96; BMI 31.5
[2024-12-12] MEDS: CIPROFLOXACIN OP SOL 0.3% 5 ML BTL BOTH EYES ×3 (02:53→13:56)
[2024-12-12 06:00] LABS: Basophils # (Auto) 0.1 Thou/mm3 (0.0-0.2); Basophils % (Auto) 1 % (0-2.5); Eosinophils # (Auto) 0.2 Thou/mm3 (0.0-0.5); Eosinophils % (Auto) 2 % (0-10); Immature Granulocytes % (Auto) 1 % (0-0); Immature Granulocytes Auto 0.08 Thou/mm3 (0.00-0.00); Lymphocytes # (Auto) 1.4 Thou/mm3 (1.0-4.8); Lymphocytes % (Auto) 16 % (10-50); Mean Corpuscular HGB Conc 34.2 g/dl (31.0-37.0); Mean Corpuscular Hemoglobin 31.8 pg (25.0-35.0); Mean Corpuscular Volume 93 fL (80-100); Monocytes # (Auto) 1.1 Thou/mm3 (0.0-0.8); Monocytes % (Auto) 13 % (0-12); Neutrophils # (Auto) 5.7 Thou/mm3 (1.8-7.7); Neutrophils % (Auto) 68 % (37-80); Nucleated Red Blood Cell % 0 /100 WBC (0); RDW Standard Deviation 56.5 fL (35.1-43.9); Red Blood Count 4.09 Miln/mm3 (4.50-5.90); White Blood Count 8.5 Thou/mm3 (3.8-10.6)
[2024-12-12 06:18] LABS: Platelet Count 79 Thou/mm3 (140-440)
[2024-12-12 06:27] LABS: Slide Review Platelets confirmed
[2024-12-12 06:41] LABS: Alanine Aminotransferase 16 U/L (10-49); Albumin, Serum 3.8 gm/dL (3.5-5.0); Albumin/Globulin Ratio 1.3 (1.2-2.2); Alkaline Phosphatase 130 U/L (46-116); Anion Gap 10 (7-16); Aspartate Amino Transferase 30 U/L (0-34); BUN/Creatinine Ratio 15 Ratio (12-20); Bilirubin,Total 2.4 mg/dL (0.3-1.2); Blood Urea Nitrogen 15 mg/dL (9-23); Calcium 8.7 mg/dL (8.3-10.6); Calcium (Corrected) 8.9 mg/dL (8.5-10.1); Carbon Dioxide 22.6 mMol/L (20.0-31.0); Chloride 102 mMol/L (98-107); Estimated Creatinine Clearance 118.3 mL/min (>60); Globulin 2.9 gm/dL (2.3-3.5); Glucose 162 mg/dL (74-106); Magnesium 1.9 mg/dL (1.6-2.6); Osmolality,Calculated 274 (275-295); Phosphorous 3.7 mg/dL (2.4-5.1); Potassium 3.8 mMol/L (3.4-5.1); Sodium 135 mMol/L (136-145); Total Protein 6.7 gm/dL (5.7-8.2); eGFR > 60 See Note
[2024-12-12] MEDS: AMIODARONE HCL 200 MG TABLET PO (08:42)
[2024-12-12] MEDS: POTASSIUM CHLORIDE 20 mEq TABCR 40 MEQ PO (08:42)
[2024-12-12] MEDS: APIXABAN 2.5 MG TABLET 5 MG PO (08:43)
[2024-12-12] MEDS: SPIRONOLACTONE 25 MG TABLET 100 MG PO (08:43)
[2024-12-12] MEDS: Magnesium Sulfate 2 GM Ivpb 2 GM/50 ML BAG IV (08:44)
[2024-12-12] MEDS: FUROSEMIDE INJ 10 MG/ML 4ML VIAL 40 MG IVP (08:44)
[2024-12-12] MEDS: cefTRIAXone/D5w 1gm IV premix 50 ML IV (08:44)
--- NOTE | 2024-12-12 09:24 | PC.SS ---
Follow up note: Patient to possibly d/c home today
--- NOTE | 2024-12-12 13:40 | ESDS_ITS ---
Planned Discharge Date 12/12/24 DS: Providers Provider Date of admission: 12/09/24 21:55 Primary care physician: Ellyn Mallory MD Admitting Provider: William Lehman DO Attending Provider on Admission: Lucas Wilson MD Consults: 12/10/24 04:42 Referral Infection Control Routine Comment: cough, SOB, Afib RVR Reason for Infection Control Referral: Other - See Comments 12/10/24 07:10 Consult to Cardiology Routine Comment: Consulting Provider: Kathryn Live Attending Provider on DC: Zack Ortega MD Discharging Provider: Zack Ortega MD DS: Diagnosis Problem List Completed Was Problem List Reviewed/Reconciled?: Yes Hospital Course Hospital Course Hospital course: This is a 44-year-old male who atrial flutter, HFrEF EF 40%, liver cirrhosis, HTN, ESRD previously on hemodialysis 2019 ? 2022. He presented with headaches, admitted for atrial flutter with RVR in settings of decompensated cirrhosis and CHF exacerbation. He failed medical management and underwent successful cardioversion. Cardiology team has been following. Treating underlying causes with diuresis as described below. He was continued on AMIODARONE BID with heart rate well under control. Additionally, he presented with ascites for which he underwent paracentesis with roughly 7.5 L removed. SAAG analysis suggested liver cirrhosis origin. Echocardiogram was done showing moderate systolic dysfunction, EF 40%. Patient continued on diuresis. Symptoms have all resolved. At the time of discharge he was was stable. Without chest pain, headaches, palpitation or shortness of breath. We have adjusted some of the home medications as below. He will follow-up with cardiology after discharge. PATIENT INSTRUCTIONS: Follow-up with PCP within 1-2 weeks of discharge. Follow-up with Cardiology, Dr. Peralta, within 1-2 weeks of discharge. Return to Emergency Room if symptoms persist, worsen, or new symptoms develop. Take an additional dose of your FUROSEMIDE (LASIX) if you notice >2 lbs weight gain within 24 hours or for worsening lower extremity edema. CONTINUE taking medications as prescribed below: * AMIODARONE 200 mg ONCE daily (NEW) * FUROSEMIDE 40 mg daily in the a.m. * SPIRONOLACTONE 50 mg TWICE daily decrease frequency to ONCE daily if blood pressure < 110/90 * ELIQUIS 5 mg twice daily * LACTULOSE 15 mL daily * LORATADINE 20 mg daily * PANTOPRAZOLE 20 mg daily * Vitamin-D3 25 mcg daily * Ciprofloxacin eye drops every 4 hourly for 7 days ADMISSION DIAGNOSES: Atrial flutter with RVR HFrEF, EF 40% 09/2024 Small-mod pericardial effusion S/p successful cardioversion Decompensated liver cirrhosis Ascites Thrombocytopenia Hyperbilirubinemia Electrolyte abnormalities Bilateral conjunctivitis HTN Incidental findings: * Cholelithiasis * Thickened gallbladder wall, likely in settings of ascites. * Patient otherwise asymptomatic. Recommended outpatient follow-up Patient case was discussed with attending, Zack Ortega MD and senior residents Dr. Ellis and Dr. Narvaez. Lance Huynh DO PGYI Time Spent with Patient Time attestation: Total time spent providing and/or coordinating discharge services: Greater than 35 minutes. Exam Vital Signs Temp Pulse Resp BP Pulse Ox O2 Del Method O2 Flow Rate 97.7 F 94 16 118/95 H 94 L Room Air 3 12/12/24 12:12/12/24 12:12/12/24 12:12/12/24 12:12/12/24 12:12/12/24 12:12/11/24 09:15 Narrative Exam GENERAL * Obese, no apparent distress. HEENT * NCAT.?KITYT. Oral mucosa is moist. Patent Nares NECK * Supple, nontender, no thyromegaly, no meningismus, no JVD, no step offs CHEST * HR 102, regular rhythm, no m/g/r * CTAB, no w/r/r. Symmetrical chest rise. No intercostal subcostal retraction * Atraumatic, nontender, no crepitus, symmetrical expansion. ABDOMEN * Distended, tense, nontender. No guarding/rebound tenderness/masses. * Bowel sounds presents EXTREMITIES * Bilateral lower extremity 2+ pitting edema, chronic venous stasis changes with mild tenderness to palpation. * No edema/cyanosis.? SKIN * Warm and dry, no jaundice/rashes. NEUROMUSCULAR * No lumbar or midline, no CVA, no paraspinal muscle spasm or tenderness. * Moves all 4 extremities well, with full ROM and good CSM. * DURAN x4, CN II-XII grossly intact. * No focal neurologic deficits. PSYCHIATRY * Normal mood and affect, cooperative, no SI or HI or hallucinations. Discharge Plan Plan Patient Disposition: HOME (Self Care) Patient condition on transfer: Stable Care Plan Goals: Follow-up with PCP within 1-2 weeks of discharge. Follow-up with Cardiology, Dr. Peralta, within 1-2 weeks of discharge. Return to Emergency Room if symptoms persist, worsen, or new symptoms develop. Take an additional dose of FUROSEMIDE (LASIX) if you notice >2 lbs weight gain within 24 hours or for worsening lower extremity edema. CONTINUE taking medications as prescribed below: * AMIODARONE 200 mg daily (NEW) * FUROSEMIDE 40 mg daily in the a.m. * SPIRONOLACTONE 50 mg TWICE daily decrease frequency to ONCE daily if blood pressure < 110/90 * ELIQUIS 5 mg twice daily * LACTULOSE 15 mL daily * LORATADINE 20 mg daily * PANTOPRAZOLE 20 mg daily * Vitamin-D3 25 mcg daily * Ciprofloxacin eye drops every 4 hourly for 7 days Prescriptions/Referrals Prescriptions/Med Rec: New amiodarone 200 mg Tablet 200 mg PO QDAY 30 Days Qty: 30 3RF furosemide [Lasix] 40 mg tablet 40 mg PO QAM Qty: 30 2RF spironolactone 50 mg tablet 50 mg PO BID 90 Days Qty: 180 0RF ciprofloxacin HCl 0.3 % drops 1 drp ophthalmic (eye) Q4HR 7 Days Qty: 5 0RF Continued pantoprazole 20 mg tablet,delayed release (DR/EC) 20 mg PO DAILY Patient Comments: TAKE ONE TABLET BY MOUTH EVERY DAY HEARTBURN GASTRIC ACIDITY folic acid 1 mg tablet 1 mg PO DAILY Patient Comments: TAKE 1 TABLET BY MOUTH EVERY DAY FOR 30 DAYS loratadine 10 mg tablet 20 mg PO DAILY Patient Comments: TAKE 2 TABLETS BY MOUTH EVERY DAY IN THE MORNING cholecalciferol (vitamin D3) 25 mcg (1,000 unit) tablet 25 mcg PO DAILY Patient Comments: TAKE 1 TABLET BY MOUTH EVERY DAY vitamin B6-vitamin E-magnesium Tablet 1 tab PO QDAY lactulose 10 gram/15 mL (15 mL) Solution 15 ml PO QDAY Eliquis 5 mg Tablet 5 mg PO BID Discontinued spironolactone 25 mg tablet 25 mg PO DAILY Patient Comments: TAKE 1 TABLET BY MOUTH EVERY DAY diltiazem HCl [Cardizem LA] 120 mg Tablet Extended Release 24 Hr 120 mg PO QAM Referrals: Ellyn Mallory MD [Primary Care Provider] - Live,Bindusagar H, MD [Physician] - Patient/Caregiver Discharge Instructions Discharge Activity: activity as tolerated Education Materials: Paracentesis Dc, AFL/Afib, DASH Plan Eat Heart Healthy Food, Eating Heart-Healthy Foods, ED Cirrhosis Print Language: Azeri Stand Alone Forms: Alicia Award Info., Patient Portal Info Letter Discharge Order Discharge Orders: Discharge (Routine); Ordered 12/12/24 Ordered By: Paul Narvaez Quality Discharge Quality Measures VTE prophylaxis MD Attestestation MD Attestation Face to face evaluation was performed by me. I have personally seen and examined the patient. I discussed the assessment and plan with the entire medicine team. I reviewed available medical records, imaging studies, laboratory results. I agree with the above subjective data, objective findings, assessment and plan except as corrected by me or noted below A FLutter with rvr acute on chronic HF rEF EF 40$ historically Cirrhosis Hx fo polysubstance abuse - s/p CV- on apixaban and amiodarone 200 mg dialy, cardiology ok with dc pt to fu with pcp and cardiology after dc take meds as prescribed, avoid polysubstance use
== END 2024-12-12 14:11 | disposition home or self-care (01) | DRG 308 ==
LOC: SERX 18:30 → SERHOLD 22:45 → S2NX 12-10 06:29
PROVIDERS: Emergency Medicine; Internal Medicine Cardiovascular Disease; Nurse Practitioner Primary Care; Admitting Provider Student in an Organized Health Care Education/Training Program; Emergency Provider Emergency Medicine; PCP Family Medicine; Visit Provider Internal Medicine
PROC: 5A2204Z Restoration of Cardiac Rhythm, Single (ICD-10-PCS; principal; 2024-12-11 08:30)
DX: I48.92 Unspecified atrial flutter (principal); K76.7 Hepatorenal syndrome; N18.6 End stage renal disease; I13.2 Hypertensive heart and chronic kidney disease with heart failure and with stage 5 chronic kidney disease, or end stage renal disease; I50.22 Chronic systolic (congestive) heart failure; I31.39 Other pericardial effusion (noninflammatory); K70.31 Alcoholic cirrhosis of liver with ascites; F17.210 Nicotine dependence, cigarettes, uncomplicated; Z99.2 Dependence on renal dialysis; F10.10 Alcohol abuse, uncomplicated; E87.6 Hypokalemia; E83.42 Hypomagnesemia; D69.6 Thrombocytopenia, unspecified; H10.9 Unspecified conjunctivitis; Z79.01 Long term (current) use of anticoagulants; I48.91 Unspecified atrial fibrillation; K80.20 Calculus of gallbladder without cholecystitis without obstruction; Z86.73 Personal history of transient ischemic attack (TIA), and cerebral infarction without residual deficits
CPT/HCPCS: 36415; 71045; 76705; 80053; 80061; 80307; 81001; 82042; 82140; 82150; 82803; 82945; 83605; 83615; 83735; 83880; 84100; 84157; 84436; 84443; 84484; 85025; 85610; 85730; 87040; 87070; 87075; 87081; 87205; 87400; 87634; 87811; 89051; 93005; 93306; 94640; 96365; 96366; 96367; 99291; 99292; C1729; J0283; J0696; J1160; J1940; J2250; J3010; J3475; J3480; J3490; P9047; A9270

== ENCOUNTER 2025-05-08 15:54 | Emergency (ER) | payer MEDICAID, SELFPAY ==
[2025-05-08] VITALS (7 sets, daily range): BP systolic 115–132; BP diastolic 67–85; PULSE 78–120; RESP 14–19; TEMP 36.4–36.6; O2SAT 95–99; BMI 30.4
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
--- NOTE | 2025-05-08 16:02 | EKG_ITS ---
[facility] Test Date: 2025-05-08 Pat Name: PATRICA MCLEAN Department: Room: - Gender: Male [employer] P[employer] Panel[employer]: : 1980 Requested By: Jose Manuel Raza Order Number: [id number] Reading MD: Jose Manuel Raza Measurements Intervals [place] Rate: 92 P: 69 ND: 156 QRS: -39 QRSD: 129 T: 64 QT: 329 QTc: 409 Interpretive Statements SINUS RHYTHM POSSIBLE LEFT ATRIAL ENLARGEMENT [-0.1mV P-WAVE IN V1/V2] LEFT AXIS DEVIATION [QRS AXIS < -30] Compared to ECG 12/11/2024 09:27:25 Left-axis deviation now present /store/S0/[id number].pdf
[2025-05-08] MEDS: LORazepam 2 MG/ML VIAL 1 MG IVP (16:09)
[2025-05-08 16:31] LABS: Basophils # (Auto) 0.1 Thou/mm3 (0.0-0.2); Basophils % (Auto) 1 % (0-2.5); Eosinophils # (Auto) 0.3 Thou/mm3 (0.0-0.5); Eosinophils % (Auto) 2 % (0-10); Hematocrit 43.5 % (41.0-53.0); Hemoglobin 15.6 g/dL (13.5-16.0); Immature Granulocytes % (Auto) 1 % (0-0); Immature Granulocytes Auto 0.08 Thou/mm3 (0.00-0.00); Lymphocytes # (Auto) 2.7 Thou/mm3 (1.0-4.8); Lymphocytes % (Auto) 19 % (10-50); Mean Corpuscular HGB Conc 35.9 g/dl (31.0-37.0); Mean Corpuscular Hemoglobin 33.8 pg (25.0-35.0); Mean Corpuscular Volume 94 fL (80-100); Monocytes # (Auto) 0.9 Thou/mm3 (0.0-0.8); Monocytes % (Auto) 6 % (0-12); Neutrophils # (Auto) 9.9 Thou/mm3 (1.8-7.7); Neutrophils % (Auto) 71 % (37-80); Nucleated Red Blood Cell % 0 /100 WBC (0); Platelet Count 129 Thou/mm3 (140-440); RDW Standard Deviation 47.6 fL (35.1-43.9); Red Blood Count 4.61 Miln/mm3 (4.50-5.90)
[2025-05-08 16:32] LABS: Lactate (Lactic Acid) 4.7 mMol/L (0.4-2.0)
[2025-05-08] MEDS: SODIUM CHLORIDE 0.9% 1000 ML 1,000 ML 999 ML IV ×2 (16:50→17:24)
[2025-05-08 16:57] LABS: Collection Type, Urine Clean Catch
[2025-05-08 16:57] LABS: INR 1.1 (0.9-1.3); Partial Thromboplastin Time 25.4 Seconds (22.0-36.0); Prothrombin Time 11.5 Seconds (9.0-12.2)
[2025-05-08 17:09] LABS: Bilirubin,Urine Negative (Negative); Blood,Urine 3+ (Negative); Clarity,Urine Clear (Clear/Hazy); Color,Urine Lt-Yellow (Lt Yel-Yel); Culture Indicated,Urine Not Indicated; Glucose, Urine 1+ (Negative); Ketones,Urine Negative (Negative); Leukocyte Esterase,Urine Negative (Negative); Nitrite,Urine Negative (Negative); PH,Urine 5.5 (5.0-7.0); Protein,Urine Negative (Neg - Trace); RBC,Urine 15 /hpf (0-3); Specific Gravity,Urine 1.009 (1.001-1.035); Squamous Epithelial Cell,Urine < 1 /hpf (0-5); Urobilinogen,Urine Negative mg/dL (0.0-1.0); WBC,Urine 4 /hpf (0-5)
[2025-05-08 17:10] LABS: Amphetamine/Methamp Scrn,U Negative (Negative); Barbiturate Screen,Urine Negative (Negative); Benzodiazepines Screen,Urine Negative (Negative); Benzoylecgonine Screen, Ur Negative (Negative); Fentanyl Screen,Urine Negative (Negative); Opiate Screen,Urine Negative (Negative); THC Screen,Urine Negative (Negative)
[2025-05-08 17:21] LABS: Alanine Aminotransferase 32 U/L (10-49); Albumin, Serum 4.3 gm/dL (3.5-5.0); Albumin/Globulin Ratio 1.7 (1.2-2.2); Alkaline Phosphatase 123 U/L (46-116); Anion Gap 15 (7-16); Aspartate Amino Transferase 36 U/L (0-34); BUN/Creatinine Ratio 11 Ratio (12-20); Bilirubin,Total 1.9 mg/dL (0.3-1.2); Blood Urea Nitrogen 15 mg/dL (9-23); Carbon Dioxide 15.7 mMol/L (20.0-31.0); Chloride 103 mMol/L (98-107); Creatinine (Component) 1.4 mg/dL (0.6-1.3); Estimated Creatinine Clearance 73.6 mL/min (>60); Globulin 2.6 gm/dL (2.3-3.5); Glucose 268 mg/dL (74-106); Lipase 40 U/L (12-53); Osmolality,Calculated 278 (275-295); Sodium 134 mMol/L (136-145); Total Protein 6.9 gm/dL (5.7-8.2); eGFR > 60 See Note
[2025-05-08 17:22] LABS: Alcohol, Blood Medical 410.5 mg/dL (0-10.0)
--- NOTE | 2025-05-08 18:00 | PD.EDADDENDU ---
Emergency Room Addendum <Christina Sanchez - Last Filed: 05/08/25 21:37> Addendum Narrative: I took over the care from Dr. Raza at 6 PM on 05/08/2025, see his notes for complete H&P and ED course. Patient is requesting to leave against medical advice. Patient is alert, awake, oriented x3 and is ambulating without difficulty. Patient was informed the risks versus benefits of leaving and is signing out against medical advice. Discharge Instructions from Dr. Luo printed for you: 1. Because we couldn't convince you to stay, you are being discharged AGAINST MEDICAL ADVICE at your request. Because you demonstrated to us that you are alert and fully oriented. And you demonstrated to us that you can ambulate without any potential harm. 2. Wound care of your nose abrasion as attached in the handout to prevent infection. 3. See a private doctor on 05/11/2025 for recheck and further care. Ask to review all test results and official radiology reports, to make sure you receive all necessary follow-ups and monitoring. Ask for help she quit alcohol to prevent potential medical and physical harm in the future. 4. Seek immediate medical care with any concerns. <Delonte Luo MD - Last Filed: 05/08/25 21:49> Addendum Narrative: I took over the care from Dr. Raza at 6 PM on 05/08/2025, see his notes for complete H&P and ED course. Patient requested to leave against medical advice. Patient is alert, awake, oriented x3. Patient demonstrated to us that he can ambulate without potential harm. Discussed potential risks, including serious injuries from falling. He understands. But we couldn't change his mind. Printed discharge instructions for the patient. Discharge Instructions from Dr. Luo printed for you: 1. Because we couldn't convince you to stay, you are being discharged AGAINST MEDICAL ADVICE at your request. Because you demonstrated to us that you are alert and fully oriented. And you demonstrated to us that you can ambulate without any potential harm. 2. Wound care of your nose abrasion as attached in the handout to prevent infection. 3. See a private doctor on 05/11/2025 for recheck and further care. Ask to review all test results and official radiology reports, to make sure you receive all necessary follow-ups and monitoring. Ask for help she quit alcohol to prevent potential medical and physical harm in the future. 4. Seek immediate medical care with any concerns.
--- NOTE | 2025-05-08 18:05 | PC.NURSE ---
PT REMOVED IV SITE. CMS INTACT. SITE COVERED.PT SLID DOWN THE FLOOR FROM THE FOOT OF THE GURENY. PT DID NOT HIT HEAD, NOT COMPLAINING OF NECK PAIN. GCS OF 14. A&OX4. PROVIDER NOTICED.
[2025-05-08 19:22] LABS: Reflex Lactate? Y
[2025-05-08 19:49] LABS: Lactic Acid, 3 HR 1.9 mMol/L (0.4-2.0)
[2025-05-08] MEDS: POTASSIUM CHLORIDE 10% 20 MEQ/15 ML UDC 40 MEQ PO (19:58)
[2025-05-08] MEDS: LORazepam 0.5 MG TABLET 3 MG PO (20:35)
[2025-05-08] MEDS: LORazepam 0.5 MG TABLET 4 MG PO ×2 (20:40→20:48)
[2025-05-08] MEDS: AMOXICILLIN/POT CLAV 875 TABLET 1 TAB PO (21:42)
[2025-05-08] MEDS: BACITRACIN OINT 1 GM PACKET TOP (21:43)
[2025-05-08] MEDS: DIPHTH,PERTUSS(ACELL),TET VAC 0.5 ML SYR- ADULT IMi (21:44)
--- NOTE | 2025-05-08 21:46 | PC.NURSE ---
@2034 This Rn informed patient was waniting to leave. Patient redirectable and requested medication to help relax. at bedside assessing patient. @2129 Patient attempting to leave ER AMA. Patient redirected to room 3. at bedside assessing patient. @2139 Patient A&Ox4, GCS 15, ambulating with a strong and steady gait. pt requesting to leave. informed and aware.
== END 2025-05-08 21:51 | disposition home or self-care (01) ==
PROVIDERS: Emergency Medicine; Emergency Provider Emergency Medicine
DX: F10.129 Alcohol abuse with intoxication, unspecified (principal); S00.31XA Abrasion of nose, initial encounter; K80.20 Calculus of gallbladder without cholecystitis without obstruction; N20.0 Calculus of kidney; K76.6 Portal hypertension; K74.60 Unspecified cirrhosis of liver; I85.10 Secondary esophageal varices without bleeding; R94.31 Abnormal electrocardiogram [ECG] [EKG]; R16.1 Splenomegaly, not elsewhere classified; S00.81XA Abrasion of other part of head, initial encounter; S30.0XXA Contusion of lower back and pelvis, initial encounter; S80.01XA Contusion of right knee, initial encounter; S29.9XXA Unspecified injury of thorax, initial encounter; S39.91XA Unspecified injury of abdomen, initial encounter; S09.90XA Unspecified injury of head, initial encounter; S09.93XA Unspecified injury of face, initial encounter; S19.9XXA Unspecified injury of neck, initial encounter; Y09 Assault by unspecified means; Y90.8 Blood alcohol level of 240 mg/100 ml or more; I13.2 Hypertensive heart and chronic kidney disease with heart failure and with stage 5 chronic kidney disease, or end stage renal disease; N18.6 End stage renal disease; I48.91 Unspecified atrial fibrillation; Z79.01 Long term (current) use of anticoagulants; Z23 Encounter for immunization; Z99.2 Dependence on renal dialysis
CPT/HCPCS: 51701; 36415; 70450; 70486; 71260; 72125; 74177; 80053; 80307; 80320; 81001; 83605; 83690; 85025; 85610; 85730; 86850; 86900; 86901; 90471; 90715; 93005; 96361; 96374; 99285; A4649; J2060; J7030; Q9967; A9270; G0480

== ENCOUNTER 2025-05-08 23:42 | Emergency (ER) | payer MEDICAID, SELFPAY ==
[2025-05-08 23:45] VITALS: BP 137/80; PULSE 104; PULSE 89; RESP 17; RESP 19; TEMP 36.7; O2SAT 96; O2SAT 99; BMI 30.3
--- NOTE | 2025-05-09 00:30 | PD.EDALCOH ---
ED Alcohol RME/HPI General Chief Complaint: Alcohol Stated Complaint: ALCOHOL USE Time Seen by Provider: 05/09/25 00:33 Arrival date/time: 05/08/25 23:42 RME / HPI RME / HPI narrative: This section includes all my notes and documentations, including HPI, PE, and ED course. Delonte Luo MD HPI: 44yo male TOY presents to the ED for a chief complaint of alcohol intoxication. ROS: All negative except as documented in HPI. Physical Exam: General: Alert and oriented. No acute distress when remaining still. Eyes: Conjunctivae and lids clear. ENT: No nasal congestion. Neck: Supple. Heart: RRR. Lungs: No respiratory distress. Good air movement. No rhonchi, wheezing, rales. Abdomen: Soft and nontender. Normal bowel sounds. No distension. No rebound or guarding. Back: No CVA tenderness. Skin: Warm and dry. Neuro: Alert and oriented X 3. I reviewed EMS notes. At this point, diagnoses include Treatment here included Significant improvement Based on my best medical judgment, made decision no further evaluation or treatment indicated at this time. Patient understands and agrees to the discharge instructions customized and printed, see below. Delonte Luo MD Related Data Home Medications ?Medication ?Instructions ?Recorded ?Confirmed cholecalciferol (vitamin D3) 25 25 mcg PO DAILY 01/01/23 12/10/24 mcg (1,000 unit) tablet folic acid 1 mg tablet 1 mg PO DAILY 01/01/23 12/10/24 loratadine 10 mg tablet 20 mg PO DAILY 01/01/23 12/10/24 pantoprazole 20 mg tablet,delayed 20 mg PO DAILY 01/01/23 12/10/24 release vitamin B6-vitamin E-magnesium 1 tab PO QDAY 02/19/24 12/10/24 tablet apixaban 5 mg tablet (Eliquis) 5 mg PO BID 12/10/24 12/10/24 lactulose 10 gram/15 mL (15 mL) 15 ml PO QDAY 12/10/24 12/10/24 oral solution Previous Rx's ?Medication ?Instructions ?Recorded amiodarone 200 mg tablet 200 mg PO QDAY 30 days #30 tabs 12/12/24 furosemide 40 mg tablet (Lasix) 40 mg PO QAM #30 tabs 12/12/24 Allergies Allergy/AdvReac Type Severity Reaction Status Date / Time No Known Allergies Allergy Verified 05/08/25 23:53 Review of Systems Review of Systems Systems Reviewed: All systems reviewed, normal except as documented Past Medical History Past Medical History NEUROLOGIC: Positive Cerebrovascular Accident; Negative Neurological Disorders, Transient Ischemic Attacks (TIA), Dementia, Alzheimer's Disease, Parkinson's Disease, Brain Tumor, Meningitis, Seizures, Epilepsy, Multiple Sclerosis, Cerebral Palsy, Amyotrophic Lateral Sclerosis (ALS/Jackie Gehrig's), Guillain-Mason Syndrome, Spina Bifida, Paralysis, Peripheral Neuropathy, Luis's Palsy, Subdural Hematoma, Migraine, Head Trauma, Spinal Cord Injury or Traumatic Brain Injury CARDIAC: Positive Cardiac Arrhythmia, Atrial Fibrillation, Heart Murmur, Congestive Heart Failure, Edema and Hypertension; Negative Cardiac Disorders, Myocardial Infarction, Angina, Coronary Artery Disease, Atherosclerotic Heart Disease, Peripheral Vascular Disease, Hypercholesterolemia, Aneurysm, Congenital Heart Disease, Valvular Heart Disease, Rheumatic Fever, Cardiomyopathy, Pericarditis, Cellulitis, Deep Vein Thrombosis, Hypotension or Varicose Veins RESPIRATORY: Negative Chronic Obstructive Pulmonary Disease (COPD), Asthma, Bronchitis, Emphysema, Pneumonia, Pulmonary Fibrosis, Cystic Fibrosis, Tuberculosis, Pulmonary Embolism, Pulmonary Edema or Sleep Apnea GASTROINTESTINAL: Positive Gastrointestinal Disorders, Cirrhosis, Gastrointestinal Bleed, Esophageal Varices, Gastroesophageal Reflux Disease and Obesity; Negative Hepatitis, Pancreatitis, Celiac Disease, Gall Bladder Disease, Rae's Esophagus, Colitis, Ulcerative Colitis, Diverticulitis, Diverticulosis, Ulcer, Colorectal Cancer, Irritable Bowel, Crohn's Disease, Obstructive Bowel, Hiatal Hernia or Hemorrhoids GENITOURINARY: Positive Genitourinary Disorders, Renal Disease, Kidney Stones and Dialysis; Negative Polycystic Kidney Disease, Neurogenic Bladder, Inguinal Hernia, Prostate Cancer or Benign Prostatic Hyperplasia REPRODUCTIVE: Negative Breast Cancer or Testicular Cancer MUSCULOSKELETAL: Positive Fractures; Negative Musculoskeletal Disorders, Muscular Dystrophy, Myasthenia Gravis, Marfan's Syndrome, Bone Cancer, Arthritis, Rheumatoid Arthritis, Osteoporosis, Degenerative Disk Disease, Gout, Scoliosis, Carpal Tunnel Syndrome, Fibromyalgia, Degenerative Joint Disease, Osteomyelitis or Poliovirus ENT: Negative Cataracts, Glaucoma, Blind, Retinal Detachment, Macular Degeneration, Ear Infection, Deafness, Head Trauma or Eye Prosthesis ENDOCRINE: Negative Endocrine Disorders, Diabetes Mellitus Type 1, Diabetes Mellitus Type 2, Hypoglycemia, [place]'s Syndrome, Lasalle's Disease, Hyperthyroidism, Hypothyroidism, Parathyroid Disease, Pituitary Disease, Systemic Lupus Erythematosus, Syndrome of Inappropriate Antidiuretic Hormone (SIADH), Adrenal Disease or Graves' Disease HEMATOLOGIC: Positive Blood Disorders, Anemia and Clotting Problems; Negative Leukemia, Hemophilia, Thalassemia or Sickle Cell Disease PSYCHO/SOCIAL: Positive Anxiety; Negative Psychiatric Problems, Schizophrenia, Recreational Drug Use, Bipolar Disorder, Depression, Behavior Problems, Self-Mutilation, Attention Deficit Disorder, Attention Deficit Hyperactivity Disorder, Depression, Post Traumatic Stress Disorder or Eating Disorder OTHER HISTORY: Positive Blood Transfusions; Negative Hospitalization, Autoimmune Disease, Down Syndrome, Autism, Developmental Delay, Shingles, Falls, Blood Transfusion Reaction, Anesthesia Reactions, Organ Transplant, Chemotherapy, Radiation Therapy, Hyperbaric Therapy, MRSA, VRSA, Vancomycin-Resistant Enterococci, Human Immunodeficiency Virus (HIV), Chicken Pox, Measles, Mumps, Rubella ([place] Measles), Pertussis, Clostridium Difficile, Cancer, Breast Cancer, Colorectal Cancer, Lung Cancer, Ovarian Cancer, Prostate Cancer or Testicular Cancer Family History FAMILY HISTORY: Negative Family Psychiatric Problems, Family Respiratory Disorders, Family Cardiac Disorders, Family Gastrointestinal Problems, Family Cancer, Family Surgery or Family Anesthesia Reaction Surgical History SURGICAL: Positive Tonsillectomy; Negative Cardiac Surgery, Open Heart Surgery, Coronary Artery Bypass Graft, Valve Replacement, Vascular Surgery, Coronary Stent, Cardiac Catheterization, Pacemaker, Angiogram, Auto Implanted Cardiovert Defib, Carotid Endarterectomy, Endocrine Surgery, Thyroidectomy, Ear Surgery, Tympanostomy Tube, Eye Surgery, Nose Surgery, Oral Surgery, Adenoidectomy, Cochlear Implant, Corneal Transplant, Throat Surgery, Abdominal Surgery, Tracheostomy, Gastric Bypass Surgery, Gastrostomy, Bowel Surgery, Nephrectomy, Transurethral Resection, Joint Replacement, Amputation, Open Reduction Internal Fixation, Arthroscopy, Neurologic Surgery, Brain Shunt, Vasectomy or Organ Transplant Social History SMOKING STATUS: Current some day smoker SECOND HAND EXPOSURE: Yes SUBSTANCE USE: does not use ED Exam Narrative Physical exam: As noted in HPI. Course Quality Measures none Orders Category Date Time Status Drug Screen,Urine Stat Lab 05/09/25 00:28 Ordered Vital Signs Vital signs: Vital Signs Temperature 98.0 F 05/08/25 23:45 Pulse Rate 89 05/08/25 23:45 Respiratory Rate 17 05/08/25 23:45 Blood Pressure 137/80 H 05/08/25 23:45 Pulse Oximetry (%) 99 05/08/25 23:45 Oxygen Delivery Method Room Air 05/08/25 23:45 Discharge Plan Plan Patient Disposition: Left without Medical Screening Discharge Disposition comment: SEEN BY [facility] ED AT [facility] [id number] Prescriptions/Referrals Prescriptions/Med Rec: No Action pantoprazole 20 mg tablet,delayed release (DR/EC) 20 mg PO DAILY Patient Comments: TAKE ONE TABLET BY MOUTH EVERY DAY HEARTBURN GASTRIC ACIDITY folic acid 1 mg tablet 1 mg PO DAILY Patient Comments: TAKE 1 TABLET BY MOUTH EVERY DAY FOR 30 DAYS loratadine 10 mg tablet 20 mg PO DAILY Patient Comments: TAKE 2 TABLETS BY MOUTH EVERY DAY IN THE MORNING cholecalciferol (vitamin D3) 25 mcg (1,000 unit) tablet 25 mcg PO DAILY Patient Comments: TAKE 1 TABLET BY MOUTH EVERY DAY vitamin B6-vitamin E-magnesium Tablet 1 tab PO QDAY lactulose 10 gram/15 mL (15 mL) Solution 15 ml PO QDAY Eliquis 5 mg Tablet 5 mg PO BID amiodarone 200 mg Tablet 200 mg PO QDAY 30 Days Qty: 30 3RF furosemide [Lasix] 40 mg tablet 40 mg PO QAM Qty: 30 2RF Patient/Caregiver Discharge Instructions Print Language: Nepali Alcohol Patient data External records reviewed:: [facility] previous records (Per chart review, patient was seen here earlier tonight and left AMA.) Clinical information provided by:: patient Social determinants that could affect healthcare access:: alcohol use Patient has the following chronic illnesses:: CHF, HTN How is presenting disease/condition affected by chronic disease/condition?: uneffected by Evaluation data The following diagnostics were reviewed and interpreted by me:: lab results Lab and/or radiology exams considered but not ordered:: none Medications / Prescriptions Medications or Prescriptions considered but not ordered:: none Medication administrations:: none Consultations Consultation(s) initiated? (list below): No Admission Indicated Admission indicated?: not indicated Explain why admission is indicated or not indicated:: Patient eloped. Admission Request Was there a request for admission?: No Disposition Plan Disposition Plan: other (specify) (Patient eloped.)
--- NOTE | 2025-05-09 01:24 | PD.EDADDENDU ---
Emergency Room Addendum Addendum Narrative: Before I saw the patient, I was told the patient eloped. Delonte Luo MD
--- NOTE | 2025-05-10 19:20 | PC.CC ---
Pt was placed on a 1799 by ER medical provider; however, pt was placed on the 1798 due to being intoxicated. Pt was not requiring a MH evaluation per ER provider. Pt was only on the 1798 due to intoxication reasons. ER provider did not require SS to assess the pt, nor was there a SS consult ordered. Pt was d/c by ER provider and no need for SS to assess.
== END 2025-05-09 00:57 | disposition left against medical advice (07) ==
LOC: SERX 05-09 01:01
PROVIDERS: Emergency Provider Emergency Medicine
DX: Z53.21 Procedure and treatment not carried out due to patient leaving prior to being seen by health care provider (principal)
CPT/HCPCS: 80307; 80320; 80329; 82150; 82248; 83690; 85025; 85610; 85730; 99281; G0480

== ENCOUNTER 2025-05-09 15:57 | Emergency (ER) | payer MEDICARE, MEDICAID, SELFPAY ==
--- NOTE | 2025-05-09 16:02 | PD.EDADULT ---
ED General RME/HPI General Chief complaint: Fall Stated complaint: FALL Time Seen by Provider: 05/09/25 16:02 Arrival date/time: 05/09/25 15:57 RME / HPI RME / HPI narrative: DR. ZARATE MAIN ED EVALUATION: 44 year old male with past medical history significant for atrial flutter, HFrEF EF 40% 09/2024, cirrhosis, ESRD on dialysis, CVA, and a craniotomy 2021 presents to the Emergency Department BIBA after bystanders called 911 after finding the patient drunk on the road. He was seen yesterday and left. No fall reported by EMS. No seizure or other complaints reported by EMS or the patient. Patient is drunk, no further history at this time. Related Data Home Medications ?Medication ?Instructions ?Recorded ?Confirmed cholecalciferol (vitamin D3) 25 25 mcg PO DAILY 01/01/23 12/10/24 mcg (1,000 unit) tablet folic acid 1 mg tablet 1 mg PO DAILY 01/01/23 12/10/24 loratadine 10 mg tablet 20 mg PO DAILY 01/01/23 12/10/24 pantoprazole 20 mg tablet,delayed 20 mg PO DAILY 01/01/23 12/10/24 release vitamin B6-vitamin E-magnesium 1 tab PO QDAY 02/19/24 12/10/24 tablet apixaban 5 mg tablet (Eliquis) 5 mg PO BID 12/10/24 12/10/24 lactulose 10 gram/15 mL (15 mL) 15 ml PO QDAY 12/10/24 12/10/24 oral solution Previous Rx's ?Medication ?Instructions ?Recorded amiodarone 200 mg tablet 200 mg PO QDAY 30 days #30 tabs 12/12/24 furosemide 40 mg tablet (Lasix) 40 mg PO QAM #30 tabs 12/12/24 Allergies Allergy/AdvReac Type Severity Reaction Status Date / Time No Known Allergies Allergy Verified 05/09/25 16:32 Review of Systems Review of Systems ROS Unobtainable: other (patient is drunk) Past Medical History Past Medical History NEUROLOGIC: Positive Cerebrovascular Accident CARDIAC: Positive Cardiac Arrhythmia, Atrial Fibrillation, Heart Murmur, Congestive Heart Failure, Edema and Hypertension GASTROINTESTINAL: Positive Gastrointestinal Disorders, Cirrhosis, Gastrointestinal Bleed, Esophageal Varices, Gastroesophageal Reflux Disease and Obesity GENITOURINARY: Positive Genitourinary Disorders, Renal Disease, Kidney Stones and Dialysis MUSCULOSKELETAL: Positive Fractures HEMATOLOGIC: Positive Blood Disorders, Anemia and Clotting Problems PSYCHO/SOCIAL: Positive Anxiety Family History FAMILY HISTORY: Negative Family Psychiatric Problems, Family Respiratory Disorders, Family Cardiac Disorders, Family Gastrointestinal Problems, Family Cancer, Family Surgery or Family Anesthesia Reaction Surgical History SURGICAL: Positive Tonsillectomy; Negative Cardiac Surgery, Open Heart Surgery, Coronary Artery Bypass Graft, Valve Replacement, Vascular Surgery, Coronary Stent, Cardiac Catheterization, Pacemaker, Angiogram, Auto Implanted Cardiovert Defib, Carotid Endarterectomy, Endocrine Surgery, Thyroidectomy, Ear Surgery, Tympanostomy Tube, Eye Surgery, Nose Surgery, Oral Surgery, Adenoidectomy, Cochlear Implant, Corneal Transplant, Throat Surgery, Abdominal Surgery, Tracheostomy, Gastric Bypass Surgery, Gastrostomy, Bowel Surgery, Nephrectomy, Transurethral Resection, Joint Replacement, Amputation, Open Reduction Internal Fixation, Arthroscopy, Neurologic Surgery, Brain Shunt or Vasectomy Social History SMOKING STATUS: Unknown if ever smoked SECOND HAND EXPOSURE: Yes SUBSTANCE USE: does not use ED Exam Narrative Physical exam: Note patient's back see my physical exam yesterday Physical Exam: General: The vital signs were reviewed. The patient is non-toxic, in no apparent distress and appears healthy with a patent airway, no respiratory distress and has no apparent circulatory problems. Head & Scalp: Normocephalic, atraumatic. Face: Appears normal and is without lesions, deformity. Ears: Left external pinna appears normal. Right external pinna appears normal. Eyes: Got some ecchymosis medial canthus right side no active bleeding the sclera is anicteric. No obvious photophobia. The Left and Right Orbit/Lid/Conjunctiva appears normal without swelling, discoloration or injection. Nose: Abrasion to the nasal bridge area no active bleeding today the nose is without deformity, discharge or tenderness; Throat: Appears normal. The mucous membranes are pink and moist without exudates, redness or mass seen. The tongue appears normal. Neck: The neck is supple and no apparent mass or adenopathy. Chest: The chest wall is normal in size and symmetry and has no chest wall tenderness or crepitus. The patient displays normal ventilator effort without retractions, accessory muscle use and has adequate air movement bilaterally with no wheezes and no rales. Cardiovascular: Regular rate and rhythm; No murmurs, rubs, or gallops; Gastrointestinal: The abdomen appears normal. No obvious hernias or mass. The abdomen is soft and benign, non-distended, with no pain, no guarding and no rebound tenderness. Bowel sounds are present and normal sounding. No CVA tenderness. Genitourinary: Back/Spine: Nontender Extremities/Musculoskeletal/lymphatic: The bilateral upper and lower extremities are warm. There is no evidence of arterial insufficiency. There is no evidence of venous insufficiency/edema. The patient spontaneously moves bilateral upper and lower extremities with no pain and no limitation of movement. There is no apparent, injury or trauma. Skin: The skin is warm, dry and intact. No rashes. No petechia. No purpura. No abnormal bruising. The color is appropriate with no cyanosis. Mental status/Psychiatric: Mental status is appropriate for age. The patient has no apparent delusions, visual hallucinations, no apparent audible hallucinations. The patient has no apparent suicidal thoughts/ideation and no apparent homicidal thoughts/ideation. Neurological: The patient is awake, alert, interactive, cordial, cooperative and is oriented to name and situation. The patient follows commands and answers historical question with no impairment. There is no visual disturbance apparent. The pupils are equal and reactive bilaterally with normal eye movements and no diplopia The bilateral upper and lower extremities have normal strength, normal range of motion and normal functioning. The gait, station and balance not tested due to acute intoxication clinically Course Quality Measures none Orders Category Date Time Status Bedside Blood Glucose NOW Care 05/09/25 16:03 Active XR chest 1V portable Stat Exams 05/09/25 16:03 Completed Alcohol, Blood Medical Stat Lab 05/09/25 16:25 Completed B-Type Natriuretic Peptide Stat Lab 05/09/25 16:25 Completed CBC Stat Lab 05/09/25 16:25 Completed Comprehensive Metabolic Panel Stat Lab 05/09/25 16:25 Completed Drug Screen,Urine Stat Lab 05/09/25 16:03 Ordered Lactate (Lactic Acid) Stat Lab 05/09/25 16:25 Results Procalcitonin Stat Lab 05/09/25 16:25 Completed Troponin I Stat Lab 05/09/25 16:25 Completed Urinalysis Stat Lab 05/09/25 16:03 Ordered Sodium Chloride 0.9% 1000 ml [Ns] 1,000 ml Med 05/09/25 16:02 Discontinued IV 2,000 mls/hr Vital Signs Vital signs: Vital Signs Temperature 98.8 F 05/09/25 16:12 Pulse Rate 102 H 05/09/25 16:12 Respiratory Rate 24 H 05/09/25 16:12 Blood Pressure 144/79 H 05/09/25 16:12 Pulse Oximetry (%) 90 L 05/09/25 16:12 Oxygen Delivery Method Room Air 05/09/25 16:12 Discharge Plan Prescriptions/Referrals Prescriptions/Med Rec: No Action pantoprazole 20 mg tablet,delayed release (DR/EC) 20 mg PO DAILY Patient Comments: TAKE ONE TABLET BY MOUTH EVERY DAY HEARTBURN GASTRIC ACIDITY folic acid 1 mg tablet 1 mg PO DAILY Patient Comments: TAKE 1 TABLET BY MOUTH EVERY DAY FOR 30 DAYS loratadine 10 mg tablet 20 mg PO DAILY Patient Comments: TAKE 2 TABLETS BY MOUTH EVERY DAY IN THE MORNING cholecalciferol (vitamin D3) 25 mcg (1,000 unit) tablet 25 mcg PO DAILY Patient Comments: TAKE 1 TABLET BY MOUTH EVERY DAY vitamin B6-vitamin E-magnesium Tablet 1 tab PO QDAY lactulose 10 gram/15 mL (15 mL) Solution 15 ml PO QDAY Eliquis 5 mg Tablet 5 mg PO BID amiodarone 200 mg Tablet 200 mg PO QDAY 30 Days Qty: 30 3RF furosemide [Lasix] 40 mg tablet 40 mg PO QAM Qty: 30 2RF Problem List Clinical Impression: Alcohol intoxication, Altered mental status Patient/Caregiver Discharge Instructions Print Language: [place] [facility] Narrative Sign out note: Patient is intoxicated returns to the ER again this time with no acute trauma apparent. Care to Dr. Luo at 1800 hrs. to follow-up until sober. Note this patient was here yesterday and eloped [facility] hospital course: Patient found by PD given the option to go to correction or come to the ER and he chose the ER. Patient's been drinking heavily. He was here yesterday and left. He does not appear to have any trauma today there is no new blood on his face or body. He is dirty with dirt. Will give him some fluids and check an alcohol level and there is no apparent clinical trauma and there is actual improvement compared yesterday when I first saw him and signed about my partner at 1800 hrs. yesterday. White count is 16.6 Hemoglobin of 14.3 Medical workup is still pending as of 1800 hrs. and hydration is ongoing. Patient blood alcohol level came back at 0.449 again highly intoxicated. His CHEM panel is similar to yesterday. Bilirubin is still slightly elevated which is not new. Dr. Luo is aware. I, [place], am scribing for and in the presence of Dr. Zarate. Clinical Information Provided by EMS Medical [facility]ed [facility] and [facility] Meds/Rx Considered, not Ordered None Labs/Rad/Tests considered, not Ordered None Chronic Illness/Social Conditions Add or document further as needed: Atrial flutter, HFrEF EF 40% 09/2024, cirrhosis, ESRD on dialysis, CVA, and a craniotomy 2021. EKG EKG not done Lab Interpretation Labs: see narrative above Imaging Imaging interpretation: see narrative above Medication Administration(s) Medication Administration History Discontinued Medications Sodium Chloride (Ns) 1,000 mls @ 2,000 mls/hr IV .Q30M ONE Stop: 05/09/25 16:31 Last Admin: 05/09/25 16:53 Dose: 2,000 mls/hr Documented By: TM Diagnosis Differential diagnosis: alcohol intoxication, alcoholism, dehydration Most likely dx, and/or detailed dx discussion: No official diagnoses at this time, still pending diagnostic tests. Patient signout to the shift supervisor provider. Dispositon Disposition comments: No final disposition plan at this time, still pending diagnostic tests. Patient signout to the shift supervisor provider.
--- NOTE | 2025-05-09 16:03 | XR_ITS ---
Examination: AP chest single view TECHNIQUE: AP portable upright chest single view Date and time: May 09, 2025 1722 hours Comparison December 09, 2024 INDICATIONS: Chest pain today. FINDINGS: Mild chronic heart failure pattern Moderate enlargement surveillance system monitor Prominent vascular congestion including central vascular engorgement No lumbar pneumonia Osseous structures are demineralized IMPRESSION: Mild chronic heart failure pattern
[2025-05-09 16:12] VITALS: BP 144/79; PULSE 102; RESP 24; TEMP 37.1; O2SAT 90
[2025-05-09 16:25] VITALS: PULSE 120; O2SAT 97
[2025-05-09 16:33] LABS: Lactate (Lactic Acid) 3.1 mMol/L (0.4-2.0)
[2025-05-09 16:39] LABS: Basophils # (Auto) 0.1 Thou/mm3 (0.0-0.2); Basophils % (Auto) 1 % (0-2.5); Eosinophils # (Auto) 0.5 Thou/mm3 (0.0-0.5); Eosinophils % (Auto) 3 % (0-10); Hematocrit 38.8 % (41.0-53.0); Hemoglobin 14.3 g/dL (13.5-16.0); Immature Granulocytes % (Auto) 1 % (0-0); Immature Granulocytes Auto 0.16 Thou/mm3 (0.00-0.00); Lymphocytes # (Auto) 3.5 Thou/mm3 (1.0-4.8); Lymphocytes % (Auto) 21 % (10-50); Mean Corpuscular HGB Conc 36.9 g/dl (31.0-37.0); Mean Corpuscular Hemoglobin 33.6 pg (25.0-35.0); Mean Corpuscular Volume 91 fL (80-100); Monocytes # (Auto) 1.9 Thou/mm3 (0.0-0.8); Monocytes % (Auto) 11 % (0-12); Neutrophils # (Auto) 10.5 Thou/mm3 (1.8-7.7); Neutrophils % (Auto) 63 % (37-80); Nucleated Red Blood Cell % 0 /100 WBC (0); Platelet Count 140 Thou/mm3 (140-440); Red Blood Count 4.25 Miln/mm3 (4.50-5.90); White Blood Count 16.6 Thou/mm3 (3.8-10.6)
[2025-05-09 16:51] LABS: B-Type Natriuretic Peptide < 20 pg/mL (0-100)
[2025-05-09] MEDS: SODIUM CHLORIDE 0.9% 1000 ML 1,000 ML 2000 ML IV (16:53)
[2025-05-09 17:06] LABS: Alanine Aminotransferase 33 U/L (10-49); Albumin/Globulin Ratio 1.6 (1.2-2.2); Alkaline Phosphatase 118 U/L (46-116); Anion Gap 12 (7-16); Aspartate Amino Transferase 53 U/L (0-34); BUN/Creatinine Ratio 8 Ratio (12-20); Bilirubin,Total 1.7 mg/dL (0.3-1.2); Blood Urea Nitrogen 8 mg/dL (9-23); Calcium 8.5 mg/dL (8.3-10.6); Calcium (Corrected) 8.5 mg/dL (8.5-10.1); Carbon Dioxide 18.9 mMol/L (20.0-31.0); Chloride 106 mMol/L (98-107); Globulin 2.5 gm/dL (2.3-3.5); Glucose 127 mg/dL (74-106); Osmolality,Calculated 274 (275-295); Potassium 3.9 mMol/L (3.4-5.1); Procalcitonin 0.09 ng/ml (0.0-0.49); Sodium 137 mMol/L (136-145); Total Protein 6.5 gm/dL (5.7-8.2); Troponin I < 0.020 ng/mL (0.0-0.045); eGFR > 60 See Note
[2025-05-09 17:10] LABS: Alcohol, Blood Medical 449.5 mg/dL (0-10.0)
--- NOTE | 2025-05-09 18:08 | EDNOTE_ITS ---
Emergency Room Addendum <Grecia Hopkins - Last Filed: 05/10/25 03:23> Addendum Narrative: I took over the care from previous shift physician at 6 PM on 05/09/2025. See previous notes for complete H & P and ED course. 1830: Patient placed on 1798 hold. I reviewed all diagnostic test results. My interpretation of the EKG is My interpretation of the chest x-ray is mild chronic heart failure pattern. My review of the Head/Brain CT report is NAD. My review of the C-Spine CT report is NAD. My review of the Facial Bones CT report is NAD. My review of the Chest/Abdomen/Pelvis CT report is No hemopericardium, pneumot horax, pulmonary contusion or hemothorax. Cirrhosis. Splenomegaly. Esophageal varices. Bilateral renal calculi. No abdominal parenchymal laceration. Abdominal aorta intact. My review of the L-Spine CT report is NAD. My review of the T-Spine CT report is NAD. Blood tests and urine tests show Ethyl: Alcohol 449.5 Diagnoses include: Alcohol intoxication. Treatment here included Ativan 2 mg, Bacitracin, Ancef 2 mg, Toradol 30 mg, Zofran 4mg, IV Fluid, Tdap, Vitamin B 100 mg. 1798 Hold. 599: Patient on 1798 Psychiatric Hold. Patient signed-out to Dr. Lepe. Delonte Luo MD <Delonte Luo MD - Last Filed: 05/10/25 04:46> Addendum Narrative: I took over the care from previous shift physician at 6 PM on 05/09/2025. See previous notes for complete H & P and ED course. Patient placed on 1798 hold. I reviewed all diagnostic test results. Diagnoses include: Alcohol intoxication AMS Multiple falls Multiple contusions Multiple abrasions Cholelithiasis Cirrhosis Esophageal varices LFT elevation Rhabdomyolysis MRCP ordered. At 6 AM on 05/10/2025, the care of the patient was transferred to Dr. Lepe. Delonte Luo MD
[2025-05-09 18:25] VITALS: BP 114/60; PULSE 100; RESP 20; TEMP 36.5; O2SAT 95
--- NOTE | 2025-05-09 18:30 | XR_ITS ---
Examination: CT brain head without contrast. 2-D sagittal coronal reconstructions Date and time of exam:May 09, 20252000 hours INDICATIONS: Patient fell today with injury to head, head pain CTDI: vol (mGy):53 DLP: (mGycm):1020 Technique: Multiple CT axial sections of the brain have been obtained, 5 mm slice thickness. Contrast has not been administered. 2-D sagittal, coronal reconstructions have been obtained Low dose protocols were performed. One or more of the following dose reduction techniques were used; automated exposure control, adjustment of the mA and/or KV according to patient size, use of iterative reconstruction technique. Findings: No significant ventricular enlargement. Intra-axial or extra-axial hemorrhage density is not seen. No mass effect or midline shift Basal cisterns are not remarkable. Fourth ventricle is midline. Cranial vault intact. Impression: Negative for acute hemorrhage, mass effect or midline shift
--- NOTE | 2025-05-09 18:30 | XR_ITS ---
Examination: CT lumbar spine, without contrast. 2-D sagittal reconstructions. 2-D coronal reconstructions. 3-D reconstructions. Date and time of exam: May 09, 20252005 hours INDICATIONS: Patient fell today with injury to lower back, lower back pain CTDI: vol (mGy):34.9 DLP: (mGycm):1181 Technique: Multiple 1.25 mm axial sections of the lumbar spine without intravenous contrast have been obtained. 2-D sagittal and coronal reconstructions have been obtained. 3-D reconstructions have been obtained. Low dose protocols were performed. One or more of the following dose reduction techniques were used; automated exposure control, adjustment of the mA and/or KV according to patient size, use of iterative reconstruction technique. Findings: Adequate alignment lumbar vertebral bodies No lumbar vertebral body fracture. Mild disc narrowing L5-S1. No spondylolisthesis. Axial images demonstrate no focal lumbar disc protrusion IMPRESSION: No lumbar fracture
--- NOTE | 2025-05-09 18:30 | XR_ITS ---
Examination: CT cervical spine without contrast 2-D sagittal reconstructions 2-D coronal reconstructions 3-D reconstructions. Exam date and time:May 09, 20252000 hours INDICATIONS: Patient fell today with into the neck, neck pain CTDI:vol (mGy) 24.8 DLP: (mGycm) 443 Technique: Multiple 2 mm axial sections of the cervical spine have been obtained. The coronal and sagittal reconstructions have been obtained. 3-D reconstructions have been obtained. Low dose protocols were performed. One or more of the following dose reduction techniques were used; automated exposure control, adjustment of the mA and/or KV according to patient size, use of iterative reconstruction technique. Findings: All of the images are degraded by patient motion No gross cervical fracture Odontoid intact IMPRESSION: Limited study No gross cervical fracture
--- NOTE | 2025-05-09 18:30 | XR_ITS ---
Examination: CT maxillofacial, without intravenous contrast. 2-D sagittal reconstructions. 3-D reconstructions. Date and time of exam:May 09, 2025, 2000 hours Comparison May 08, 2025 Indications according to the phasicity, facial pains CTDI: vol (mGy):17.1 DLP: (mGycm):361 Technique: Multiple axial images of maxillofacial region, 3.0 mm slice thickness. 2-D sagittal and coronal reconstructions. 3-D reconstructions. Low dose protocols were performed. One or more of the following dose reduction techniques were used; automated exposure control, adjustment of the mA and/or KV according to patient size, use of iterative reconstruction technique. Findings: Orbital rims frontal bones intact No nasal bone fracture No depression zygomatic arches Pterygoid plates maxilla and the mandible is intact IMPRESSION: No acute facial fracture.
--- NOTE | 2025-05-09 18:30 | XR_ITS ---
Examination: CT thoracic spine, without contrast. 2-D sagittal reconstructions. 2-D coronal reconstructions. 3-D reconstructions. Date and time of exam:May 09, 20252005 hours INDICATIONS: Patient fell today with injury to the mid back, mid back pain CTDI: vol (mGy):31.8 DLP: (mGycm):208 Technique: Multiple 1.25 mm axial sections of the thoracic spine without intravenous contrast have been obtained. 2-D sagittal and coronal reconstructions have been obtained. 3-D reconstructions have been obtained. Low dose protocols were performed. One or more of the following dose reduction techniques were used; automated exposure control, adjustment of the mA and/or KV according to patient size, use of iterative reconstruction technique. Findings: Adequate alignment thoracic vertebral bodies No thoracic vertebral body compression fracture Satisfactory alignment posterior spinous processes Pedicles and laminae appear intact No focal thoracic disc protrusion IMPRESSION: No acute thoracic fracture
--- NOTE | 2025-05-09 18:30 | XR_ITS ---
Examination: CT chest, without intravenous contrast. CT abdomen, without intravenous contrast. CT pelvis, without intravenous contrast. 2-D sagittal and coronal reconstructions. 3-D reconstructions. Date and time of exam:May 09, 20252009 hours INDICATIONS: Patient fell today with injury of the chest and abdomen, chest pain abdomen pain CTDI vol (mgy) 11 DLP (MGycm)832 Technique: Multiple CT images, 3.0 mm slice thickness, obtained chest, abdomen, pelvis, with the high-resolution 64 slice scanner.. Sagittal and coronal 2-D reconstructions are obtained. 3-D reconstructions Low dose protocols were performed. One or more of the following dose reduction techniques were used; automated exposure control, adjustment of the mA and/or KV according to patient size, use of iterative reconstruction technique. Findings: Thoracic aorta pulmonary arteries intact No hemopericardium No pneumothorax pulmonary contusion or hemothorax The cisternal segment thoracic vertebral bodies appear intact No acute rib fractures Cirrhosis with splenomegaly Cholelithiasis Portosystemic collateral vessels medial to the spleen Esophageal varices No liver or splenic or renal laceration Bilateral nonobstructing renal calculi Abdominal aorta intact, no free blood in the abdomen Again noted umbilical hernia containing incarcerated fat Negative for pneumoperitoneum Urinary bladder intact Hips bones of the pelvis intact IMPRESSION: No hemopericardium, pneumothorax, pulmonary contusion or hemothorax Cirrhosis Splenomegaly Esophageal varices Bilateral renal calculi No abdominal parenchymal laceration Abdominal aorta intact
--- NOTE | 2025-05-09 18:42 | XR_ITS ---
Examination: Abdomen sonogram, Limited Date and time of exam: May 09, 2025 at 1934 hours INDICATIONS: Right upper abdominal pain and tenderness today Technique: Real-time cornejo scale transabdominal sonographic images of the upper abdomen obtained. Findings: Gallstones Gallbladder wall 0.29 cm no edema Common bile duct 0.65 cm no stones noted Pancreatic head 3.9 cm Liver 17 cm fatty infiltration Normal hepatopedal portal venous flow Patent IVC IMPRESSION: Cholelithiasis Enlarged common bile duct 0.65 cm Enlarged pancreatic head Consider MRCP follow-up to exclude common bile duct stones and to assess enlarged pancreas
[2025-05-09 19:01] LABS: Sed Rate (ESR) 6 mm/hr (0-15)
[2025-05-09] MEDS: ceFAZolin/D5W 2 GM IV 2 GM/100 ML BAG IV (19:02)
[2025-05-09] MEDS: THIAMINE INJ 100 MG/ML VIAL 2 ML IVP (19:02)
[2025-05-09] MEDS: ONDANSETRON INJ 2 MG/ML INJ 2 ML 4 MG IVP (19:03)
[2025-05-09] MEDS: KETOROLAC INJ 30 MG/ML VIAL IVP (19:03)
[2025-05-09 19:04] LABS: Partial Thromboplastin Time 22.4 Seconds (22.0-36.0); Prothrombin Time 11.3 Seconds (9.0-12.2)
[2025-05-09] MEDS: BACITRACIN OINT 1 GM PACKET TOP (19:13)
[2025-05-09 19:25] LABS: Beta Hydroxybutyrate 0.1 mmol/L (<0.6)
[2025-05-09 19:27] LABS: Base Excess -3 (-3-3); HCO3 21 mEq/L (20-26); Inspired Oxygen, FIO2 21 %; O2 Saturation 94 % (91-98); PCO2 35 mmHg (32.0-48.0); PO2 75 mmHg (83-108); pH, Arterial 7.39 (7.35-7.45)
[2025-05-09 19:29] LABS: Reflex Lactate? Y
[2025-05-09 19:29] LABS: Allen Test Performed/OK; Puncture Site Right Radial
[2025-05-09 19:33] LABS: Ammonia 30 uMol/L (11-32); Lactic Acid, 3 HR 2.8 mMol/L (0.4-2.0)
[2025-05-09] MEDS: LORazepam 2 MG/ML VIAL IVP (19:48)
[2025-05-09] MEDS: DIPHTH,PERTUSS(ACELL),TET VAC 0.5 ML SYR- ADULT IMi (19:48)
[2025-05-09 20:06] LABS: Acetaminophen < 2.0 mcg/mL (10.0-20.0); Amylase 67 U/L (30-118); Bilirubin,Direct 0.5 mg/dL (0.0-0.3); C-Reactive Protein 0.8 mg/dL (0.0-0.9); Creatine Kinase 444 U/L (34-171); Free T4 (Free Thyroxine) 1.38 ng/dL (0.89-1.76); Lipase 31 U/L (12-53); Magnesium 1.9 mg/dL (1.6-2.6); Salicylate < 3.0 mg/dL; Thyroid Stimulating Hormone 1.98 uIU/mL (0.55-4.78); Troponin I < 0.020 ng/mL (0.0-0.045)
[2025-05-09 20:09] LABS: COVID-19 Antigen (In-House) Negative (Negative)
[2025-05-09] MEDS: SODIUM CHLORIDE 0.9% 1000 ML 1,000 ML 500 ML IV (20:34)
[2025-05-09 20:56] LABS: Collection Type, Urine Catheter; Squamous Epithelial Cell,Urine 0 /hpf (0-5)
[2025-05-09 21:07] LABS: Bilirubin,Urine Negative (Negative); Blood,Urine 2+ (Negative); Clarity,Urine Clear (Clear/Hazy); Color,Urine Colorless (Lt Yel-Yel); Glucose, Urine Negative (Negative); Ketones,Urine Negative (Negative); Leukocyte Esterase,Urine Negative (Negative); Nitrite,Urine Negative (Negative); Protein,Urine Negative (Neg - Trace); RBC,Urine 3 /hpf (0-3); Specific Gravity,Urine 1.005 (1.001-1.035); Urobilinogen,Urine Negative mg/dL (0.0-1.0); WBC,Urine 1 /hpf (0-5)
[2025-05-09 21:09] LABS: Amphetamine/Methamp Scrn,U Negative (Negative); Barbiturate Screen,Urine Negative (Negative); Benzodiazepines Screen,Urine Negative (Negative); Benzoylecgonine Screen, Ur Negative (Negative); Fentanyl Screen,Urine Negative (Negative); Opiate Screen,Urine Negative (Negative); THC Screen,Urine Negative (Negative)
[2025-05-09 21:18] VITALS: BP 127/78; PULSE 98; RESP 16; TEMP 36.9; O2SAT 94
--- NOTE | 2025-05-10 00:30 | PC.NURSE ---
2ND DOSE ATIVAN NOT GIVEN WILL HOLD PT IS SLEEPING AND NOT REQUIRING AT THIS TIME
[2025-05-10 04:09] VITALS: BP 133/69; PULSE 91; RESP 18; TEMP 37.1; O2SAT 93
[2025-05-10 05:48] VITALS: PULSE 96; RESP 16; RESP 88; O2SAT 94
[2025-05-10 05:49] VITALS: BP 133/69; PULSE 98; RESP 18; TEMP 36.7; O2SAT 93
[2025-05-10] MEDS: KETOROLAC INJ 30 MG/ML VIAL IVP (05:55)
[2025-05-10] MEDS: MORPHINE SULF INJ 10 MG/ML VIAL 4 MG IVP (05:55)
--- NOTE | 2025-05-10 06:23 | PD.EDADDENDU ---
Emergency Room Addendum Addendum Narrative: 0600: Care assumed from Dr. Luo, the previous shift emergency physician. Past medical, surgical, social and family history reviewed. Vitals and home medications reviewed. I will assume the care of the patient at this time, pending MRCP and final disposition. Please refer to the emergency department record for history and examination from initial visit.? Physical exam by me shows patient under no acute distress at this time. 0835: Patient total bilirubin is 1.6 and US was essentially negative. Still pending MRCP, but it is Sunday and there is no MRI. He is stable to come in tomorrow for MRCP and will be discharged after he ambulates. 0850: Patient passed road test. Diagnoses: -Alcohol intoxication -AMS -Multiple contusions -Multiple abrasions -Cholelithiasis -Cirrhosis -Esophageal varices -LFT elevation -Rhabdomyolysis - Fall
[2025-05-10 07:31] LABS: Lactate (Lactic Acid) 1.4 mMol/L (0.4-2.0)
[2025-05-10 07:32] VITALS: BP 135/70; PULSE 93; RESP 18; TEMP 36.7; O2SAT 96
[2025-05-10 08:22] LABS: Bilirubin,Total 1.6 mg/dL (0.3-1.2); Creatine Kinase 324 U/L (34-171)
--- NOTE | 2025-05-10 08:47 | PC.NURSE ---
Per Dr. Lepe since there is no MRI available today, we will discharge patient and advise to come back tomorrow in the morning for mrcp study. Patient in agreement with plan. Patient given sandwich and juice, will walk around unit to check for stable gait
[2025-05-10 09:42] VITALS: BP 105/59; PULSE 90; RESP 18; TEMP 36.6; O2SAT 94
--- NOTE | 2025-05-10 09:44 | PC.NURSE ---
Patient had steady gait when ambulating restroom. Patient understands he will have to come back tomorrow for mrcp procedure. Patient vitals stable. Patient discharged home.
== END 2025-05-10 09:47 | disposition home or self-care (01) ==
PROVIDERS: Emergency Medicine; Family Medicine; Emergency Provider Emergency Medicine
DX: F10.129 Alcohol abuse with intoxication, unspecified (principal); K80.20 Calculus of gallbladder without cholecystitis without obstruction; K74.60 Unspecified cirrhosis of liver; M62.82 Rhabdomyolysis
CPT/HCPCS: 36415; 36600; 70450; 70486; 71045; 71250; 72125; 72128; 72131; 74176; 76705; 80053; 80307; 80320; 80329; 81001; 82010; 82140; 82150; 82247; 82248; 82550; 82803; 83605; 83690; 83735; 83880; 84145; 84439; 84443; 84484; 85025; 85610; 85652; 85730; 86140; 87040; 87400; 87811; 90715; 93005; 96361; 96365; 96366; 96374; 96375; 99285; J0689; J1885; J2060; J2270; J2405; J3411; J7030; A9270; G0480

== ENCOUNTER 2025-05-11 22:29 | Emergency (ER) | payer MEDICARE, MEDICAID, SELFPAY ==
[2025-05-11 22:31] VITALS: BP 136/78; PULSE 100; RESP 18; TEMP 37.1; O2SAT 95; BMI 31.8
[2025-05-11 22:35] VITALS: PULSE 107; O2SAT 94
--- NOTE | 2025-05-11 23:10 | PC.NURSE ---
[facility] CONTACTED AT THIS TIME AND WILL SEND OFFICER WHEN AVAILABLE. PER [facility] DISPATCH PATIENT WAS NOT COOPERATIVE WITH DETAILS OF CAUSE OF INJURIES WHEN OFFICER SPOKE WITH PATIENT PRIOR TO CALLING EMS.
--- NOTE | 2025-05-12 00:49 | PD.EDSKIN ---
ED Skin Abcess FB-RME/HPI General Chief complaint: Skin/Abscess/Foreign Body Stated complaint: ROAD RASH Time Seen by Provider: 05/11/25 23:41 Arrival date/time: 05/11/25 22:29 RME / HPI RME / HPI narrative: 44-year-old male presents to the ED with a complaint of right arm abrasion that occurred approximately 2 days ago. He states he was already seen for this abrasion and given a tetanus injection. When asked why he returns for the same injury, he states the police were going to take him to [facility] or he could take the ambulance here to the ED to be seen. He chose to come by ambulance. He denies fever chills, increased redness or increased pain. He denies numbness, tingling to his right arm. He admits to having been drinking alcohol today. Related Data Home Medications ?Medication ?Instructions ?Recorded ?Confirmed cholecalciferol (vitamin D3) 25 25 mcg PO DAILY 01/01/23 12/10/24 mcg (1,000 unit) tablet folic acid 1 mg tablet 1 mg PO DAILY 01/01/23 12/10/24 loratadine 10 mg tablet 20 mg PO DAILY 01/01/23 12/10/24 pantoprazole 20 mg tablet,delayed 20 mg PO DAILY 01/01/23 12/10/24 release vitamin B6-vitamin E-magnesium 1 tab PO QDAY 02/19/24 12/10/24 tablet apixaban 5 mg tablet (Eliquis) 5 mg PO BID 12/10/24 12/10/24 lactulose 10 gram/15 mL (15 mL) 15 ml PO QDAY 12/10/24 12/10/24 oral solution Previous Rx's ?Medication ?Instructions ?Recorded amiodarone 200 mg tablet 200 mg PO QDAY 30 days #30 tabs 12/12/24 furosemide 40 mg tablet (Lasix) 40 mg PO QAM #30 tabs 12/12/24 cephalexin 500 mg capsule 500 mg PO BID Abrasions 10 days 05/12/25 #20 caps Allergies Allergy/AdvReac Type Severity Reaction Status Date / Time No Known Allergies Allergy Verified 05/09/25 16:32 Review of Systems Review of Systems Systems Reviewed: All systems reviewed, normal except as documented Past Medical History Past Medical History NEUROLOGIC: Positive Cerebrovascular Accident; Negative Neurological Disorders, Transient Ischemic Attacks (TIA), Dementia, Alzheimer's Disease, Parkinson's Disease, Brain Tumor, Meningitis, Seizures, Epilepsy, Multiple Sclerosis, Cerebral Palsy, Amyotrophic Lateral Sclerosis (ALS/Jackie Gehrig's), Guillain-[place] Syndrome, Spina Bifida, Paralysis, Peripheral Neuropathy, Luis's Palsy, Subdural Hematoma, Migraine, Head Trauma, Spinal Cord Injury or Traumatic Brain Injury CARDIAC: Positive Cardiac Arrhythmia, Atrial Fibrillation, Heart Murmur, Congestive Heart Failure, Edema and Hypertension; Negative Cardiac Disorders, Myocardial Infarction, Angina, Coronary Artery Disease, Atherosclerotic Heart Disease, Peripheral Vascular Disease, Hypercholesterolemia, Aneurysm, Congenital Heart Disease, Valvular Heart Disease, Rheumatic Fever, Cardiomyopathy, Pericarditis, Cellulitis, Deep Vein Thrombosis, Hypotension or Varicose Veins RESPIRATORY: Negative Chronic Obstructive Pulmonary Disease (COPD), Asthma, Bronchitis, Emphysema, Pneumonia, Pulmonary Fibrosis, Cystic Fibrosis, Tuberculosis, Pulmonary Embolism, Pulmonary Edema or Sleep Apnea GASTROINTESTINAL: Positive Gastrointestinal Disorders, Cirrhosis, Gastrointestinal Bleed, Esophageal Varices, Gastroesophageal Reflux Disease and Obesity; Negative Hepatitis, Pancreatitis, Celiac Disease, Gall Bladder Disease, Rae's Esophagus, Colitis, Ulcerative Colitis, Diverticulitis, Diverticulosis, Ulcer, Colorectal Cancer, Irritable Bowel, Crohn's Disease, Obstructive Bowel, Hiatal Hernia or Hemorrhoids GENITOURINARY: Positive Genitourinary Disorders, Renal Disease, Kidney Stones and Dialysis; Negative Polycystic Kidney Disease, Neurogenic Bladder, Inguinal Hernia, Prostate Cancer or Benign Prostatic Hyperplasia REPRODUCTIVE: Negative Breast Cancer or Testicular Cancer MUSCULOSKELETAL: Positive Fractures; Negative Musculoskeletal Disorders, Muscular Dystrophy, Myasthenia Gravis, Marfan's Syndrome, Bone Cancer, Arthritis, Rheumatoid Arthritis, Osteoporosis, Degenerative Disk Disease, Gout, Scoliosis, Carpal Tunnel Syndrome, Fibromyalgia, Degenerative Joint Disease, Osteomyelitis or Poliovirus ENT: Negative Cataracts, Glaucoma, Blind, Retinal Detachment, Macular Degeneration, Ear Infection, Deafness, Head Trauma or Eye Prosthesis ENDOCRINE: Negative Endocrine Disorders, Diabetes Mellitus Type 1, Diabetes Mellitus Type 2, Hypoglycemia, Bri's Syndrome, Alexandr's Disease, Hyperthyroidism, Hypothyroidism, Parathyroid Disease, Pituitary Disease, Systemic Lupus Erythematosus, Syndrome of Inappropriate Antidiuretic Hormone (SIADH), Adrenal Disease or Graves' Disease HEMATOLOGIC: Positive Blood Disorders, Anemia and Clotting Problems; Negative Leukemia, Hemophilia, Thalassemia or Sickle Cell Disease PSYCHO/SOCIAL: Positive Anxiety; Negative Psychiatric Problems, Schizophrenia, Recreational Drug Use, Bipolar Disorder, Depression, Behavior Problems, Self-Mutilation, Attention Deficit Disorder, Attention Deficit Hyperactivity Disorder, Depression, Post Traumatic Stress Disorder or Eating Disorder OTHER HISTORY: Positive Blood Transfusions; Negative Hospitalization, Autoimmune Disease, Down Syndrome, Autism, Developmental Delay, Shingles, Falls, Blood Transfusion Reaction, Anesthesia Reactions, Organ Transplant, Chemotherapy, Radiation Therapy, Hyperbaric Therapy, MRSA, VRSA, Vancomycin-Resistant Enterococci, Human Immunodeficiency Virus (HIV), Chicken Pox, Measles, Mumps, Rubella ([place] Measles), Pertussis, Clostridium Difficile, Cancer, Breast Cancer, Colorectal Cancer, Lung Cancer, Ovarian Cancer, Prostate Cancer or Testicular Cancer Family History FAMILY HISTORY: Negative Family Psychiatric Problems, Family Respiratory Disorders, Family Cardiac Disorders, Family Gastrointestinal Problems, Family Cancer, Family Surgery or Family Anesthesia Reaction Surgical History SURGICAL: Positive Tonsillectomy; Negative Cardiac Surgery, Open Heart Surgery, Coronary Artery Bypass Graft, Valve Replacement, Vascular Surgery, Coronary Stent, Cardiac Catheterization, Pacemaker, Angiogram, Auto Implanted Cardiovert Defib, Carotid Endarterectomy, Endocrine Surgery, Thyroidectomy, Ear Surgery, Tympanostomy Tube, Eye Surgery, Nose Surgery, Oral Surgery, Adenoidectomy, Cochlear Implant, Corneal Transplant, Throat Surgery, Abdominal Surgery, Tracheostomy, Gastric Bypass Surgery, Gastrostomy, Bowel Surgery, Nephrectomy, Transurethral Resection, Joint Replacement, Amputation, Open Reduction Internal Fixation, Arthroscopy, Neurologic Surgery, Brain Shunt, Vasectomy or Organ Transplant Social History SMOKING STATUS: Current every day smoker SECOND HAND EXPOSURE: Yes SUBSTANCE USE: does not use ED Exam Narrative Physical exam: Alert 44-year-old male, no acute distress. No respiratory distress. Lungs are clear, cardiovascular regular rate and rhythm. Abdomen is soft and nontender. Moves all extremities well. No tenderness noted to his neck or back. Large older abrasion noted to the right lateral forearm area. He is also noted to have ecchymosis to the right lateral eye that occurred at the same time as the abrasion. Course Course Course Narrative: Patient's right forearm was cleansed with wound cleanser and saline, antibiotic ointment applied as well as nonadherent dressing and Kerlix. Quality Measures none Orders Category Date Time Status Wound Care NOW Care 05/12/25 00:55 Completed Wound care to right forearm. Vital Signs Vital signs: Vital Signs Temperature 98.7 F 05/11/25 22:31 Pulse Rate 100 05/11/25 22:31 Respiratory Rate 18 05/11/25 22:31 Blood Pressure 136/78 H 05/11/25 22:31 Pulse Oximetry (%) 95 05/11/25 22:31 Oxygen Delivery Method Room Air 05/11/25 22:31 PROCEDURES: Procedure Comment Patient's right forearm was cleansed with wound cleanser and saline, antibiotic ointment applied as well as nonadherent dressing and Kerlix. Skin / Abscess / Foreign Body MDM Narrative MDM Narrative:: 44-year-old male presents to the ED with a complaint of right arm abrasion that occurred approximately 2 days ago. He states he was already seen for this abrasion and given a tetanus injection. When asked why he returns for the same injury, he states the police were going to take him to [facility] or he could take the ambulance here to the ED to be seen. He chose to come by ambulance. He denies fever chills, increased redness or increased pain. He denies numbness, tingling to his right arm. He admits to having been drinking alcohol today. Alert 44-year-old male, no acute distress. No respiratory distress. Lungs are clear, cardiovascular regular rate and rhythm. Abdomen is soft and nontender. Moves all extremities well. No tenderness noted to his neck or back. Large older abrasion noted to the right lateral forearm area. He is also noted to have ecchymosis to the right lateral eye that occurred at the same time as the abrasion. Patient's right forearm was cleansed with wound cleanser and saline, antibiotic ointment applied as well as nonadherent dressing and Kerlix. Patient was discharged home in stable and improved condition with a prescription for cephalexin for his wounds. Patient data External records reviewed:: None Clinical information provided by:: patient Social determinants that could affect healthcare access:: alcohol use Patient has the following chronic illnesses:: Alcoholism, cirrhosis, A-fib/flutter on Eliquis and amiodarone, CHF How is presenting disease/condition affected by chronic disease/condition?: exacerbated by (Alcoholism) Evaluation data The following diagnostics were reviewed and interpreted by me:: other (specify) (N/A) Lab and/or radiology exams considered but not ordered:: N/A Interpretation Summary: N/A Medications / Prescriptions Medications or Prescriptions considered but not ordered:: N/A Medication administrations:: N/A Consultations Consultation(s) initiated? (list below): No Diagnosis Skin/Abscess Differential Diagnosis: impetigo and other (Multiple abrasions to right forearm, cellulitis) Most likely diagnosis given after review of the tests above:: Multiple abrasions to right forearm with mild erythema Admission Indicated Admission indicated?: not indicated Explain why admission is indicated or not indicated:: Patient is stable for discharge Admission Request Was there a request for admission?: No Disposition Plan Disposition Plan: Discharge Discharge Attestation Discharge Attestation: The patient and all family members were given an opportunity to ask questions and understood the discharge instructions. Discharge instructions specifically effects, indications for sooner follow up or return to the emergency department, and the expected course of current diagnosis. Patient condition: Stable Discharge Plan Plan Patient Disposition: HOME (Self Care) Discharge Disposition comment: Stable Prescriptions/Referrals Prescriptions/Med Rec: New cephalexin 500 mg capsule 500 mg PO BID 10 Days Qty: 20 0RF No Action pantoprazole 20 mg tablet,delayed release (DR/EC) 20 mg PO DAILY Patient Comments: TAKE ONE TABLET BY MOUTH EVERY DAY HEARTBURN GASTRIC ACIDITY folic acid 1 mg tablet 1 mg PO DAILY Patient Comments: TAKE 1 TABLET BY MOUTH EVERY DAY FOR 30 DAYS loratadine 10 mg tablet 20 mg PO DAILY Patient Comments: TAKE 2 TABLETS BY MOUTH EVERY DAY IN THE MORNING cholecalciferol (vitamin D3) 25 mcg (1,000 unit) tablet 25 mcg PO DAILY Patient Comments: TAKE 1 TABLET BY MOUTH EVERY DAY vitamin B6-vitamin E-magnesium Tablet 1 tab PO QDAY lactulose 10 gram/15 mL (15 mL) Solution 15 ml PO QDAY Eliquis 5 mg Tablet 5 mg PO BID amiodarone 200 mg Tablet 200 mg PO QDAY 30 Days Qty: 30 3RF furosemide [Lasix] 40 mg tablet 40 mg PO QAM Qty: 30 2RF Referrals: Ellyn Mallory MD [Primary Care Provider] - In 1 week Problem List Clinical Impression: Multiple abrasions Patient/Caregiver Discharge Instructions Education Materials: Wound Care Dc, ED Abrasions Additional Instructions: Take the antibiotic as prescribed and complete the course even though you may be feeling better Keep the wounds clean and dry. Watch for any worsening signs of infection which would include increasing pain, redness, purulent discharge. Follow-up with your primary care physician in 24 to 48 hours. Return to the ED for any new or worsening symptoms. Print Language: Citizen Of [place] Stand Alone Forms: Alicia Award Info., Patient Portal Info Letter PA/CAD DESIGNER DRAFTER Supervising Physician PA/CAD DESIGNER DRAFTER Supervising Physician: Dr Luo
== END 2025-05-12 01:28 | disposition home or self-care (01) ==
PROVIDERS: Emergency Provider Emergency Medicine; PCP Family Medicine
DX: S50.811A Abrasion of right forearm, initial encounter (principal); S00.211A Abrasion of right eyelid and periocular area, initial encounter; S00.11XA Contusion of right eyelid and periocular area, initial encounter; X58.XXXA Exposure to other specified factors, initial encounter
CPT/HCPCS: 99282

== ENCOUNTER 2025-05-15 10:30 | Emergency (ER) | payer MEDICARE, MEDICAID, SELFPAY ==
[2025-05-15] VITALS (17 sets, daily range): BP systolic 119–143; BP diastolic 60–101; PULSE 87–94; RESP 14–18; TEMP 35.9–37.1; O2SAT 90–98; BMI 31.1
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
--- NOTE | 2025-05-15 11:25 | XR_ITS ---
Examination: CT maxillofacial, without intravenous contrast. 2-D sagittal reconstructions. 3-D reconstructions. Date and time of exam:May 15, 2025 1217 hours Comparison May 09, 2025 INDICATIONS: Patient fell today with injury to the face, facial pain CTDI: vol (mGy):31.7. DLP: (mGycm):651. Technique: Multiple axial images of maxillofacial region, 3.0 mm slice thickness. 2-D sagittal and coronal reconstructions. 3-D reconstructions. Low dose protocols were performed. One or more of the following dose reduction techniques were used; automated exposure control, adjustment of the mA and/or KV according to patient size, use of iterative reconstruction technique. Findings: Frontal bone frontal sinuses intact Orbital rims intact. No nasal bone fracture No depression zygomatic arches Maxilla mandible intact IMPRESSION: No acute facial fracture
--- NOTE | 2025-05-15 11:25 | XR_ITS ---
Examination: CT brain head without contrast. 2-D sagittal coronal reconstructions Date and time of exam:May 15, 2025 1217 hours INDICATIONS: Patient fell today with injury to the head, right-sided head pain CTDI: vol (mGy):49.8 DLP: (mGycm):1029 Technique: Multiple CT axial sections of the brain have been obtained, 5 mm slice thickness. Contrast has not been administered. 2-D sagittal, coronal reconstructions have been obtained Low dose protocols were performed. One or more of the following dose reduction techniques were used; automated exposure control, adjustment of the mA and/or KV according to patient size, use of iterative reconstruction technique. Findings: No significant ventricular enlargement. Intra-axial or extra-axial hemorrhage density is not seen. No mass effect or midline shift Basal cisterns are not remarkable. Fourth ventricle is midline. Cranial vault intact. Impression: Negative for acute hemorrhage, mass effect or midline shift
[2025-05-15 11:45] LABS: Basophils # (Auto) 0.1 Thou/mm3 (0.0-0.2); Basophils % (Auto) 1 % (0-2.5); Eosinophils # (Auto) 0.2 Thou/mm3 (0.0-0.5); Eosinophils % (Auto) 2 % (0-10); Hematocrit 38.1 % (41.0-53.0); Hemoglobin 13.8 g/dL (13.5-16.0); Immature Granulocytes % (Auto) 1 % (0-0); Immature Granulocytes Auto 0.07 Thou/mm3 (0.00-0.00); Lymphocytes # (Auto) 1.8 Thou/mm3 (1.0-4.8); Lymphocytes % (Auto) 20 % (10-50); Mean Corpuscular HGB Conc 36.2 g/dl (31.0-37.0); Mean Corpuscular Hemoglobin 33.9 pg (25.0-35.0); Mean Corpuscular Volume 94 fL (80-100); Monocytes # (Auto) 0.6 Thou/mm3 (0.0-0.8); Monocytes % (Auto) 7 % (0-12); Neutrophils # (Auto) 5.9 Thou/mm3 (1.8-7.7); Neutrophils % (Auto) 69 % (37-80); Nucleated Red Blood Cell % 0 /100 WBC (0); Platelet Count 99 Thou/mm3 (140-440); RDW Standard Deviation 47.1 fL (35.1-43.9); Red Blood Count 4.07 Miln/mm3 (4.50-5.90); White Blood Count 8.6 Thou/mm3 (3.8-10.6)
[2025-05-15 12:21] LABS: Alanine Aminotransferase 66 U/L (10-49); Albumin, Serum 4.2 gm/dL (3.5-5.0); Albumin/Globulin Ratio 1.4 (1.2-2.2); Alkaline Phosphatase 236 U/L (46-116); Anion Gap 10 (7-16); Aspartate Amino Transferase 131 U/L (0-34); BUN/Creatinine Ratio 6 Ratio (12-20); Blood Urea Nitrogen 6 mg/dL (9-23); Calcium 8.4 mg/dL (8.3-10.6); Calcium (Corrected) 8.4 mg/dL (8.5-10.1); Carbon Dioxide 25.9 mMol/L (20.0-31.0); Chloride 106 mMol/L (98-107); Estimated Creatinine Clearance 117.7 mL/min (>60); Globulin 2.9 gm/dL (2.3-3.5); Glucose 118 mg/dL (74-106); Osmolality,Calculated 281 (275-295); Potassium 3.8 mMol/L (3.4-5.1); Sodium 142 mMol/L (136-145); Total Protein 7.1 gm/dL (5.7-8.2); eGFR > 60 See Note
[2025-05-15 12:27] LABS: Alcohol, Blood Medical 403.7 mg/dL (0-10.0)
== END 2025-05-15 15:07 | disposition home or self-care (01) ==
PROVIDERS: Emergency Provider Emergency Medicine; PCP Family Medicine
DX: S00.81XA Abrasion of other part of head, initial encounter (principal); S50.311A Abrasion of right elbow, initial encounter; S00.83XA Contusion of other part of head, initial encounter; F10.929 Alcohol use, unspecified with intoxication, unspecified; Y90.8 Blood alcohol level of 240 mg/100 ml or more; W01.0XXA Fall on same level from slipping, tripping and stumbling without subsequent striking against object, initial encounter
CPT/HCPCS: 36415; 70450; 70486; 73080; 80053; 80320; 85025; 99284; G0480

== ENCOUNTER 2025-05-17 18:27 | Emergency (ER) | payer MEDICARE, MEDICAID, SELFPAY ==
[2025-05-17 18:33] VITALS: BP 150/80; PULSE 112; RESP 18; TEMP 36.9; O2SAT 95
[2025-05-17 18:49] VITALS: PULSE 65; O2SAT 98
--- NOTE | 2025-05-17 19:06 | PD.EDRME ---
Rapid Medical Screening Exam RME Arrival date/time: 05/17/25 18:27 Chief Complaint: General Adult/Misc Complain Vital signs: Vital Signs Temperature 98.4 F 05/17/25 18:33 Pulse Rate 112 H 05/17/25 18:33 Respiratory Rate 18 05/17/25 18:33 Blood Pressure 150/80 H 05/17/25 18:33 Pulse Oximetry (%) 95 05/17/25 18:33 Oxygen Delivery Method Room Air 05/17/25 18:33 RME Narrative: Patient brought in by EMS for public alcohol intoxication. Patient c/o chest pressure. hx of CVA, atrial flutter, HFrEF EF 40% 11/2024, cirrhosis, ESRD.
--- NOTE | 2025-05-17 19:08 | XR_ITS ---
Examination: AP chest single view TECHNIQUE: AP portable upright chest single view Date and time: May 17, 2025, 1947 hours Comparison May 09, 2025 INDICATIONS: Chest pressure today FINDINGS: Mild enlargement cardiac contour Moderate vascular congestion. No lobar pneumonia or pulmonary edema IMPRESSION: Mild enlargement cardiac contour Moderate vascular congestion. No lobar pneumonia
--- NOTE | 2025-05-17 19:08 | EKG_ITS ---
[facility] Test Date: 2025-05-17 Pat Name: PATRICA MCLEAN Department: Room: - Gender: Male [employer]: : 1980 Requested By: Amando Vargas Order Number: [id number] Reading MD: Amando Vargas Measurements Intervals [place] Rate: 109 P: 53 UT: 154 QRS: -24 QRSD: 110 T: 31 QT: 369 QTc: 498 Interpretive Statements SINUS TACHYCARDIA Compared to ECG 05/08/2025 16:11:07 Sinus rhythm no longer present Left-axis deviation no longer present /store/S0/[id number]/ecg/[id number].pdf
[2025-05-17 19:39] LABS: Basophils # (Auto) 0.1 Thou/mm3 (0.0-0.2); Basophils % (Auto) 1 % (0-2.5); Eosinophils # (Auto) 0.3 Thou/mm3 (0.0-0.5); Eosinophils % (Auto) 2 % (0-10); Hematocrit 37.7 % (41.0-53.0); Hemoglobin 13.3 g/dL (13.5-16.0); Immature Granulocytes % (Auto) 1 % (0-0); Immature Granulocytes Auto 0.21 Thou/mm3 (0.00-0.00); Lymphocytes # (Auto) 1.9 Thou/mm3 (1.0-4.8); Lymphocytes % (Auto) 12 % (10-50); Mean Corpuscular HGB Conc 35.3 g/dl (31.0-37.0); Mean Corpuscular Volume 96 fL (80-100); Monocytes # (Auto) 1.2 Thou/mm3 (0.0-0.8); Monocytes % (Auto) 8 % (0-12); Neutrophils # (Auto) 11.9 Thou/mm3 (1.8-7.7); Neutrophils % (Auto) 76 % (37-80); Nucleated Red Blood Cell % 0 /100 WBC (0); Platelet Count 111 Thou/mm3 (140-440); RDW Standard Deviation 52.6 fL (35.1-43.9); Red Blood Count 3.91 Miln/mm3 (4.50-5.90); White Blood Count 15.6 Thou/mm3 (3.8-10.6)
[2025-05-17 19:59] LABS: B-Type Natriuretic Peptide < 20 pg/mL (0-100)
[2025-05-17 20:09] LABS: Alanine Aminotransferase 72 U/L (10-49); Albumin/Globulin Ratio 1.4 (1.2-2.2); Alkaline Phosphatase 241 U/L (46-116); Anion Gap 9 (7-16); Aspartate Amino Transferase 151 U/L (0-34); BUN/Creatinine Ratio 6 Ratio (12-20); Bilirubin,Total 2.1 mg/dL (0.3-1.2); Blood Urea Nitrogen 7 mg/dL (9-23); Calcium 8.5 mg/dL (8.3-10.6); Calcium (Corrected) 8.5 mg/dL (8.5-10.1); Chloride 107 mMol/L (98-107); Creatinine (Component) 1.1 mg/dL (0.6-1.3); Globulin 2.9 gm/dL (2.3-3.5); Glucose 111 mg/dL (74-106); Osmolality,Calculated 272 (275-295); Potassium 4.5 mMol/L (3.4-5.1); Sodium 137 mMol/L (136-145); Total Protein 6.9 gm/dL (5.7-8.2); Troponin I < 0.020 ng/mL (0.0-0.045); eGFR > 60 See Note
[2025-05-17 20:26] LABS: Alcohol, Blood Medical 373.4 mg/dL (0-10.0)
--- NOTE | 2025-05-17 22:06 | PC.NURSE ---
CALLED PATIENT IN THE LOBBY AND OUTSIDE, NO ANSWER RECEIVED FROM PATIENT.
--- NOTE | 2025-05-17 22:16 | PC.NURSE ---
CALLED PATIENT IN THE LOBBY AND OUTSIDE, NO ANSWER RECEIVED FROM PATIENT.
--- NOTE | 2025-05-17 22:23 | PC.NURSE ---
CALLED PATIENT IN THE LOBBY AND OUTSIDE, NO ANSWER RECEIVED FROM PATIENT.
== END 2025-05-17 22:23 | disposition left against medical advice (07) ==
LOC: SERX 19:31
PROVIDERS: Physician Assistant; Emergency Provider Emergency Medicine; PCP Family Medicine
DX: F10.129 Alcohol abuse with intoxication, unspecified (principal); R07.89 Other chest pain; R00.0 Tachycardia, unspecified; I48.92 Unspecified atrial flutter; K74.60 Unspecified cirrhosis of liver; N18.6 End stage renal disease; I50.20 Unspecified systolic (congestive) heart failure; R09.89 Other specified symptoms and signs involving the circulatory and respiratory systems; Z53.29 Procedure and treatment not carried out because of patient's decision for other reasons
CPT/HCPCS: 36415; 71045; 80053; 80320; 83880; 84484; 85025; 93005; 99281; G0480

== ENCOUNTER 2025-05-25 18:49 | Emergency (ER) | payer MEDICAID, SELFPAY ==
--- NOTE | 2025-05-25 18:53 | XR_ITS ---
Examination: CT cervical spine without contrast 2-D sagittal reconstructions 2-D coronal reconstructions 3-D reconstructions. Exam date and time:May 25, 2025 1008 p.M. INDICATIONS: Patient fell today imaging to the neck, neck pain CTDI:vol (mGy) 17.6 DLP: (mGycm) 376 Technique: Multiple 2 mm axial sections of the cervical spine have been obtained. The coronal and sagittal reconstructions have been obtained. 3-D reconstructions have been obtained. Low dose protocols were performed. One or more of the following dose reduction techniques were used; automated exposure control, adjustment of the mA and/or KV according to patient size, use of iterative reconstruction technique. Findings: Axial sections demonstrate intact base of the skull. C1 exhibit satisfactory relationship to the odontoid. No acute cervical vertebral body fracture seen. Alignment posterior spinous processes satisfactory. Impression: No acute cervical fracture.
--- NOTE | 2025-05-25 18:53 | XR_ITS ---
Examination: CT brain head without contrast. 2-D sagittal coronal reconstructions Date and time of exam:May 25, 2011 2025, 2208 hours INDICATIONS: Patient fell today with injury of the head, head pain altered mental status CTDI: vol (mGy):49.7 DLP: (mGycm):956 Technique: Multiple CT axial sections of the brain have been obtained, 5 mm slice thickness. Contrast has not been administered. 2-D sagittal, coronal reconstructions have been obtained Low dose protocols were performed. One or more of the following dose reduction techniques were used; automated exposure control, adjustment of the mA and/or KV according to patient size, use of iterative reconstruction technique. Findings: No significant ventricular enlargement. Intra-axial or extra-axial hemorrhage density is not seen. No mass effect or midline shift Basal cisterns are not remarkable. Fourth ventricle is midline. Cranial vault intact. Impression: Negative for acute hemorrhage, mass effect or midline shift
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
--- NOTE | 2025-05-25 18:56 | PD.EDALCOH ---
ED Alcohol RME/HPI General Chief Complaint: Medical Clearance Stated Complaint: ALCOHOL INTOXICATION Time Seen by Provider: 05/25/25 18:52 Source: EMS Arrival date/time: 05/25/25 18:49 Mode of arrival: EMS Limitations: altered mental status RME / HPI RME / HPI narrative: 44-year-old male brought in by EMS for suspected alcohol intoxication. EMS report they were called out to the scene where patient was arrested. Arresting officer stated the patient was too intoxicated. Patient was standing by the patrol car when they arrived. They placed him in to the gurney and transported him here. Patient is currently nonverbal. There was no reported falls or injuries. Review of the patient's medications revealed that patient is possibly on amiodarone 200 mg once daily, Eliquis 5 mg twice daily, folic acid 1 mg a day. Furosemide 40 mg once daily, lactulose 50 mL daily, loratadine 20 mg daily, and propranolol 20 mg daily. Related Data Home Medications ?Medication ?Instructions ?Recorded ?Confirmed cholecalciferol (vitamin D3) 25 25 mcg PO DAILY 01/01/23 12/10/24 mcg (1,000 unit) tablet folic acid 1 mg tablet 1 mg PO DAILY 01/01/23 12/10/24 loratadine 10 mg tablet 20 mg PO DAILY 01/01/23 12/10/24 pantoprazole 20 mg tablet,delayed 20 mg PO DAILY 01/01/23 12/10/24 release vitamin B6-vitamin E-magnesium 1 tab PO QDAY 02/19/24 12/10/24 tablet apixaban 5 mg tablet (Eliquis) 5 mg PO BID 12/10/24 12/10/24 lactulose 10 gram/15 mL (15 mL) 15 ml PO QDAY 12/10/24 12/10/24 oral solution Previous Rx's ?Medication ?Instructions ?Recorded amiodarone 200 mg tablet 200 mg PO QDAY 30 days #30 tabs 12/12/24 furosemide 40 mg tablet (Lasix) 40 mg PO QAM #30 tabs 12/12/24 Allergies Allergy/AdvReac Type Severity Reaction Status Date / Time No Known Allergies Allergy Verified 05/09/25 16:32 ED Exam General Limitations: Present altered mental status Course Quality Measures none Orders Category Date Time Status EKG (ED ONLY) *Do not use* NOW Care 05/25/25 19:[address] cervical spine wo con Stat Exams 05/25/25 18:[address] facial bones wo con Stat Exams 05/25/25 18:[address] head/brain wo con Stat Exams 05/25/25 18:53 Completed EKG (ED Only) Stat Exams 05/25/25 18:59 Draft Alcohol, Blood Medical Stat Lab 05/25/25 21:00 Completed CBC Stat Lab 05/25/25 21:00 Completed CMP [Comprehensive Metabolic Panel] Stat Lab 05/25/25 21:00 Completed Drug Screen,Urine Stat Lab 05/25/25 21:29 Completed Lipase Stat Lab 05/25/25 21:00 Completed Urinalysis, C/S if Indicated Stat Lab 05/25/25 21:29 Completed Vital Signs Vital signs: Vital Signs Temperature 98.0 F 05/25/25 18:59 Pulse Rate 100 05/25/25 18:59 Respiratory Rate 18 05/25/25 18:59 Blood Pressure 145/81 H 05/25/25 18:59 Pulse Oximetry (%) 98 05/25/25 18:59 Oxygen Delivery Method Room Air 05/25/25 18:59 Discharge Plan Plan Patient Disposition: HOME (Self Care) Patient condition on transfer: Stable Prescriptions/Referrals Prescriptions/Med Rec: No Action pantoprazole 20 mg tablet,delayed release (DR/EC) 20 mg PO DAILY Patient Comments: TAKE ONE TABLET BY MOUTH EVERY DAY HEARTBURN GASTRIC ACIDITY folic acid 1 mg tablet 1 mg PO DAILY Patient Comments: TAKE 1 TABLET BY MOUTH EVERY DAY FOR 30 DAYS loratadine 10 mg tablet 20 mg PO DAILY Patient Comments: TAKE 2 TABLETS BY MOUTH EVERY DAY IN THE MORNING cholecalciferol (vitamin D3) 25 mcg (1,000 unit) tablet 25 mcg PO DAILY Patient Comments: TAKE 1 TABLET BY MOUTH EVERY DAY vitamin B6-vitamin E-magnesium Tablet 1 tab PO QDAY lactulose 10 gram/15 mL (15 mL) Solution 15 ml PO QDAY Eliquis 5 mg Tablet 5 mg PO BID amiodarone 200 mg Tablet 200 mg PO QDAY 30 Days Qty: 30 3RF furosemide [Lasix] 40 mg tablet 40 mg PO QAM Qty: 30 2RF Referrals: No Primary/Family,Physician [Primary Care Provider] - In 1 week Problem List Clinical Impression: Alcohol abuse, Medical clearance for incarceration, Methamphetamine abuse Patient/Caregiver Discharge Instructions Additional Instructions: - You are medically cleared for further monitoring under police custody. - You are at high risk of bleed with your alcohol abuse and Eliquis. I recommend you stop taking Eliquis. - Return to the emergency room at anytime for any worsening or emergent changes. Print Language: Greek Stand Alone Forms: Alicia Award Info., Patient Portal Info Letter Alcohol Patient data External records reviewed:: EMS form Clinical information provided by:: patient Social determinants that could affect healthcare access:: none Patient has the following chronic illnesses:: Alcohol abuse, substance abuse How is presenting disease/condition affected by chronic disease/condition?: exacerbated by Evaluation data The following diagnostics were reviewed and interpreted by me:: lab results (No leukocytosis or anemia. No metabolic derangement. Urine drug screen is positive for methamphetamines alcohol is positive.) and radiology exam(s) (No intercranial abnormality, no osseous injury of the C-spine, no facial injury) Lab and/or radiology exams considered but not ordered:: n/a Interpretation Summary: Screening tests are positive for alcohol and methamphetamine Medications / Prescriptions Medications or Prescriptions considered but not ordered:: n/a Medication administrations:: n/a Consultations Consultation(s) initiated? (list below): No Diagnosis Most likely diagnosis given after review of the tests above:: Alcohol abuse, methamphetamine abuse Admission Indicated Admission indicated?: not indicated Admission Request Was there a request for admission?: No Disposition Plan Disposition Plan: Discharge Discharge Attestation Discharge Attestation: The patient and all family members were given an opportunity to ask questions and understood the discharge instructions. Discharge instructions specifically effects, indications for sooner follow up or return to the emergency department, and the expected course of current diagnosis. Patient condition: Stable
[2025-05-25 18:59] VITALS: BP 145/81; PULSE 100; RESP 18; TEMP 36.7; O2SAT 98
--- NOTE | 2025-05-25 18:59 | EKG_ITS ---
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1980 Requested By: Christian Nunez Order Number: [id number] Reading MD: Christian Nunez Measurements Intervals [place] Rate: 114 P: -21 SC: 164 QRS: 239 QRSD: 121 T: 47 QT: 346 QTc: 477 Interpretive Statements SINUS TACHYCARDIA POSSIBLE RIGHT VENTRICULAR HYPERTROPHY [SOME/ALL OF: PROMINENT R IN V1, LATE TRANSITION, RAD, MARICRUZ, SSS] PROBABLE LATERAL MYOCARDIAL INFARCTION , PROBABLY OLD [35 ms Q WAVE IN I/aVL/V5/V6] INFERIOR MYOCARDIAL INFARCTION , OF INDETERMINATE AGE [40+ ms Q WAVE AND/OR ST/T ABNORMALITY IN II/aVF] Compared to ECG 05/17/2025 19:20:46 Myocardial infarct finding now present /store/S0/[id number].pdf
[2025-05-25 19:39] VITALS: PULSE 84; RESP 18; O2SAT 98; BMI 31.1
[2025-05-25 21:30] LABS: Basophils # (Auto) 0.1 Thou/mm3 (0.0-0.2); Basophils % (Auto) 1 % (0-2.5); Eosinophils # (Auto) 0.4 Thou/mm3 (0.0-0.5); Eosinophils % (Auto) 4 % (0-10); Hematocrit 46.8 % (41.0-53.0); Hemoglobin 16.5 g/dL (13.5-16.0); Immature Granulocytes Auto 0.08 Thou/mm3 (0.00-0.00); Lymphocytes # (Auto) 2.9 Thou/mm3 (1.0-4.8); Lymphocytes % (Auto) 27 % (10-50); Mean Corpuscular HGB Conc 35.3 g/dl (31.0-37.0); Mean Corpuscular Hemoglobin 34.2 pg (25.0-35.0); Mean Corpuscular Volume 97 fL (80-100); Monocytes # (Auto) 1.1 Thou/mm3 (0.0-0.8); Monocytes % (Auto) 10 % (0-12); Neutrophils # (Auto) 6.2 Thou/mm3 (1.8-7.7); Neutrophils % (Auto) 58 % (37-80); Nucleated Red Blood Cell # 0.00 Thou/mm3 (0.00-0.00); Nucleated Red Blood Cell % 0 /100 WBC (0); Platelet Count 125 Thou/mm3 (140-440); RDW Standard Deviation 56.5 fL (35.1-43.9); Red Blood Count 4.82 Miln/mm3 (4.50-5.90); White Blood Count 10.7 Thou/mm3 (3.8-10.6)
[2025-05-25 21:41] LABS: Collection Type, Urine Voided
[2025-05-25 21:46] VITALS: BP 154/95; PULSE 108; RESP 18; TEMP 36.9; O2SAT 95
[2025-05-25 21:48] LABS: Bilirubin,Urine Negative (Negative); Blood,Urine Trace (Negative); Clarity,Urine Clear (Clear/Hazy); Color,Urine Colorless (Lt Yel-Yel); Culture Indicated,Urine Not Indicated; Glucose, Urine Negative (Negative); Ketones,Urine Negative (Negative); Leukocyte Esterase,Urine Negative (Negative); Nitrite,Urine Negative (Negative); PH,Urine 6.5 (5.0-7.0); Protein,Urine Trace (Neg - Trace); RBC,Urine 3 /hpf (0-3); Specific Gravity,Urine 1.004 (1.001-1.035); Squamous Epithelial Cell,Urine < 1 /hpf (0-5); Urobilinogen,Urine Negative mg/dL (0.0-1.0); WBC,Urine < 1 /hpf (0-5)
[2025-05-25 21:55] LABS: Alanine Aminotransferase 44 U/L (10-49); Albumin, Serum 4.4 gm/dL (3.5-5.0); Albumin/Globulin Ratio 1.2 (1.2-2.2); Alkaline Phosphatase 231 U/L (46-116); Anion Gap 12 (7-16); Aspartate Amino Transferase 63 U/L (0-34); BUN/Creatinine Ratio 8 Ratio (12-20); Bilirubin,Total 2.0 mg/dL (0.3-1.2); Blood Urea Nitrogen 8 mg/dL (9-23); Calcium 8.8 mg/dL (8.3-10.6); Calcium (Corrected) 8.8 mg/dL (8.5-10.1); Carbon Dioxide 23.5 mMol/L (20.0-31.0); Chloride 109 mMol/L (98-107); Creatinine (Component) 1.0 mg/dL (0.6-1.3); Estimated Creatinine Clearance 117.7 mL/min (>60); Globulin 3.8 gm/dL (2.3-3.5); Glucose 105 mg/dL (74-106); Lipase 69 U/L (12-53); Osmolality,Calculated 285 (275-295); Potassium 4.5 mMol/L (3.4-5.1); Sodium 144 mMol/L (136-145); Total Protein 8.2 gm/dL (5.7-8.2); eGFR > 60 See Note
[2025-05-25 21:57] LABS: Amphetamine/Methamp Scrn,U Positive (Negative); Barbiturate Screen,Urine Negative (Negative); Benzodiazepines Screen,Urine Negative (Negative); Benzoylecgonine Screen, Ur Negative (Negative); Fentanyl Screen,Urine Negative (Negative); Opiate Screen,Urine Negative (Negative); THC Screen,Urine Negative (Negative)
[2025-05-25 21:58] LABS: Alcohol, Blood Medical 457.2 mg/dL (0-10.0)
[2025-05-25 23:39] VITALS: BP 144/81; PULSE 87; RESP 16; TEMP 36.7; O2SAT 94
== END 2025-05-25 23:41 | disposition home or self-care (01) ==
PROVIDERS: Physician Assistant Medical; Emergency Provider Emergency Medicine
DX: Z02.89 Encounter for other administrative examinations (principal); F10.129 Alcohol abuse with intoxication, unspecified; F15.10 Other stimulant abuse, uncomplicated; I25.2 Old myocardial infarction; R94.31 Abnormal electrocardiogram [ECG] [EKG]
CPT/HCPCS: 36415; 70450; 70486; 72125; 80053; 80307; 80320; 81001; 83690; 85025; 93005; 99284; G0480

== ENCOUNTER 2025-06-07 10:14 | Emergency (ER) | payer MEDICAID, SELFPAY ==
[2025-06-07 10:16] VITALS: BMI 32.5
--- NOTE | 2025-06-07 10:25 | EKG_ITS ---
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
[2025-06-07 10:36] VITALS: BP 145/79; PULSE 98; RESP 18; TEMP 36.9; O2SAT 99
--- NOTE | 2025-06-07 10:40 | XR_ITS ---
Examination: CT abdomen and pelvis without contrast. Coronal 3-D reconstructions. Sagittal 2-D reconstructions. Date and time of exam:June 07, 2025, 1107 hrs. Comparison May 09, 2025 Indications: Diagnosis cirrhosis 2019, distended abdomen 3 weeks CTDI: vol (mGy): 12.8 DLP: (mGycm): 747 Technique: Axial images of the abdomen have been obtained, 3 mm slice thickness Intravenous contrast material has not been administered. Low dose protocols were performed. One or more of the following dose reduction techniques were used; automated exposure control, adjustment of the mA and/or KV according to patient size, use of iterative reconstruction technique. Findings: Mild enlargement cardiac contour Trace pericardial effusion Cirrhosis, suspicious for right lower lobe 22 mm liver lesion Significant splenomegaly Cholelithiasis Esophageal and perigastric varices Portosystemic collateral vessels medial to the spleen Multiple bilateral renal calculi ranging in size from 2 to 4 mm No hydronephrosis or ureteral calculi 15 mm umbilical hernia containing incarcerated fat Mild ascites No bowel obstruction Significant thickening of urinary bladder wall up to 11 mm Fat-containing inguinal hernias Prominent osteopenia Impression: Cirrhosis, suspicious for 22 mm right lower lobe liver lesion, recommend MRI abdomen liver follow-up pre and postcontrast Significant splenomegaly Esophageal perigastric varices. Mild ascites. Cholelithiasis. Multiple bilateral nonobstructing renal calculi. Thickening of urinary bladder wall, differential would include cystitis Umbilical hernia containing incarcerated fat
--- NOTE | 2025-06-07 10:41 | XR_ITS ---
Examination: PA lateral chest 2 views Technique: Upright AP lateral chest 2 views Date and time: June 07, 2025, 1056 hrs., Comparison May 17, 2025 Indications: Shortness of breath chest pain beginning 3 days ago. Findings: Mild to moderate enlargement left ventricle Mild vascular congestion Mild hyperexpansion. No lobar pneumonia or emily pulmonary edema. Impression: Mild to moderate enlargement left ventricle Mild vascular congestion
--- NOTE | 2025-06-07 10:41 | PD.EDRME ---
Rapid Medical Screening Exam RME Arrival date/time: 06/07/25 10:14 44-year-old male with a history of cirrhosis, cardiomyopathy, atrial fibrillation, congestive heart failure presents to the emergency room with a chief complaint of abdominal pain distention and shortness of breath x 4 days I have greeted and performed a focused initial assessment of this patient. A comprehensive ED assessment and evaluation of the patient, analysis of all test results, and completion of the medical decision making process will be conducted by additional ED providers. Chief Complaint: Shortness of Breath/Dyspnea Time Seen by Provider: 06/07/25 10:21 Vital signs: Vital Signs Temperature 98.5 F 06/07/25 10:36 Pulse Rate 98 06/07/25 10:36 Respiratory Rate 18 06/07/25 10:36 Blood Pressure 145/79 H 06/07/25 10:36 Pulse Oximetry (%) 99 06/07/25 10:36 Oxygen Delivery Method Room Air 06/07/25 10:36 Vital signs reviewed by provider: Yes
[2025-06-07 11:40] LABS: Basophils # (Auto) 0.1 Thou/mm3 (0.0-0.2); Basophils % (Auto) 1 % (0-2.5); Eosinophils # (Auto) 0.1 Thou/mm3 (0.0-0.5); Eosinophils % (Auto) 2 % (0-10); Hematocrit 39.9 % (41.0-53.0); Hemoglobin 13.4 g/dL (13.5-16.0); Immature Granulocytes Auto 0.01 Thou/mm3 (0.00-0.00); Lymphocytes # (Auto) 0.8 Thou/mm3 (1.0-4.8); Lymphocytes % (Auto) 16 % (10-50); Mean Corpuscular HGB Conc 33.6 g/dl (31.0-37.0); Mean Corpuscular Hemoglobin 34.4 pg (25.0-35.0); Mean Corpuscular Volume 103 fL (80-100); Monocytes # (Auto) 0.5 Thou/mm3 (0.0-0.8); Monocytes % (Auto) 10 % (0-12); Neutrophils # (Auto) 3.7 Thou/mm3 (1.8-7.7); Neutrophils % (Auto) 71 % (37-80); Nucleated Red Blood Cell # 0.00 Thou/mm3 (0.00-0.00); Nucleated Red Blood Cell % 0 /100 WBC (0); RDW Standard Deviation 57.9 fL (35.1-43.9); Red Blood Count 3.89 Miln/mm3 (4.50-5.90); White Blood Count 5.1 Thou/mm3 (3.8-10.6)
[2025-06-07 11:43] LABS: Collection Type, Urine Clean Catch
[2025-06-07 11:46] LABS: INR 1.1 (0.9-1.3); Partial Thromboplastin Time 23.8 Seconds (22.0-36.0); Prothrombin Time 11.9 Seconds (9.0-12.2)
[2025-06-07 11:49] LABS: B-Type Natriuretic Peptide 52 pg/mL (0-100)
[2025-06-07 12:05] LABS: Alanine Aminotransferase 25 U/L (10-49); Albumin, Serum 3.8 gm/dL (3.5-5.0); Albumin/Globulin Ratio 1.3 (1.2-2.2); Alcohol, Blood Medical < 3.0 mg/dL (0-10.0); Alkaline Phosphatase 183 U/L (46-116); Anion Gap 9 (7-16); Aspartate Amino Transferase 42 U/L (0-34); BUN/Creatinine Ratio 11 Ratio (12-20); Bilirubin,Total 1.9 mg/dL (0.3-1.2); Blood Urea Nitrogen 10 mg/dL (9-23); Calcium 8.5 mg/dL (8.3-10.6); Calcium (Corrected) 8.7 mg/dL (8.5-10.1); Carbon Dioxide 23.3 mMol/L (20.0-31.0); Chloride 110 mMol/L (98-107); Creatinine (Component) 0.9 mg/dL (0.6-1.3); Estimated Creatinine Clearance 133.5 mL/min (>60); Globulin 2.9 gm/dL (2.3-3.5); Glucose 110 mg/dL (74-106); Lipase 44 U/L (12-53); Osmolality,Calculated 283 (275-295); Potassium 3.6 mMol/L (3.4-5.1); Sodium 142 mMol/L (136-145); Total Protein 6.7 gm/dL (5.7-8.2); Troponin I < 0.020 ng/mL (0.0-0.045); eGFR > 60 See Note
[2025-06-07 12:09] VITALS: BP 147/91; PULSE 90; RESP 16; TEMP 36.8; O2SAT 95
--- NOTE | 2025-06-07 12:09 | PD.EDSOB ---
ED SOB =RME/HPI General Chief Complaint: Shortness of Breath/Dyspnea Stated Complaint: ABD PAIN/SWELLING, SOB. PT HAS CARDIOMYOPATHY Time Seen by Provider: 06/07/25 10:21 Arrival date/time: 06/07/25 10:14 Limitations: no limitations RME / HPI RME / HPI Narrative: 06/07/25 10:14 44-year-old male with a history of cirrhosis, cardiomyopathy, atrial fibrillation, congestive heart failure presents to the emergency room with a chief complaint of abdominal pain distention and shortness of breath x 4 days. He denies any chest pain or lower leg edema. No injuries or falls. No syncope. Denies any nausea or vomiting. Denies any recent alcohol abuse. He is followed by Dr. Groves of GI and Dr. Live with cardiology. He has no other acute complaints. Related Data Home Medications ?Medication ?Instructions ?Recorded ?Confirmed cholecalciferol (vitamin D3) 25 25 mcg PO DAILY 01/01/23 12/10/24 mcg (1,000 unit) tablet folic acid 1 mg tablet 1 mg PO DAILY 01/01/23 12/10/24 loratadine 10 mg tablet 20 mg PO DAILY 01/01/23 12/10/24 pantoprazole 20 mg tablet,delayed 20 mg PO DAILY 01/01/23 12/10/24 release vitamin B6-vitamin E-magnesium 1 tab PO QDAY 02/19/24 12/10/24 tablet apixaban 5 mg tablet (Eliquis) 5 mg PO BID 12/10/24 12/10/24 lactulose 10 gram/15 mL (15 mL) 15 ml PO QDAY 12/10/24 12/10/24 oral solution Previous Rx's ?Medication ?Instructions ?Recorded amiodarone 200 mg tablet 200 mg PO QDAY 30 days #30 tabs 12/12/24 furosemide 40 mg tablet (Lasix) 40 mg PO QAM #30 tabs 12/12/24 cephalexin 500 mg capsule 500 mg PO QID #20 caps 06/07/25 Allergies Allergy/AdvReac Type Severity Reaction Status Date / Time No Known Allergies Allergy Verified 06/07/25 10:17 Review of Systems Review of Systems Systems Reviewed: All systems reviewed, normal except as documented ED Exam General Limitations: Present no limitations General appearance: Present alert, in no apparent distress and obese Head Head exam: Present atraumatic Eye Eye exam: Present normal appearance and PERRL ENT ENT exam: Present normal exam, normal oropharynx and mucous membranes moist Neck Neck exam: Present normal inspection, full ROM and trachea midline Chest Chest inspection: Present normal inspection and symmetric chest wall rise Respiratory Respiratory exam: Present normal lung sounds bilaterally Cardiovascular Cardiovascular exam: Present regular rate, normal rhythm and normal heart sounds Abdominal Exam Abdominal exam: Present soft, distention and normal bowel sounds; Absent tenderness, guarding or rebound Extremities Exam Extremities exam: Present normal inspection and full ROM Back Exam Back exam: Present normal inspection and full ROM Neurological Exam Neurological exam: Present alert and oriented X3 Psychiatric Psychiatric exam: Present anxious and other (He is answering questions appropriately. He is cooperative) Skin Skin exam: Present warm, dry, intact and normal color Course Quality Measures none Orders Category Date Time Status EKG (ED ONLY) *Do not use* NOW Care 06/07/25 10:[address] abdomen pelvis wo con Stat Exams 06/07/25 10:40 Completed EKG (ED Only) Stat Exams 06/07/25 10:25 Draft XR chest 2V Stat Exams 06/07/25 10:41 Completed Alcohol, Blood Medical Stat Lab 06/07/25 10:58 Completed B-Type Natriuretic Peptide Stat Lab 06/07/25 10:58 Completed CBC Stat Lab 06/07/25 10:58 Completed CMP [Comprehensive Metabolic Panel] Stat Lab 06/07/25 10:58 Completed Drug Screen,Urine Stat Lab 06/07/25 11:30 Completed Lipase Stat Lab 06/07/25 10:58 Completed Partial Thromboplastin Time Stat Lab 06/07/25 10:58 Completed Prothrombin Time with INR Stat Lab 06/07/25 10:58 Completed Troponin I Stat Lab 06/07/25 10:58 Completed UA [Urinalysis] Stat Lab 06/07/25 11:30 Completed Urine Culture Stat Lab 06/07/25 11:30 Received cephALEXin [Keflex] Med 06/07/25 12:56 Discontinued 500 mg PO X1 ONE Vital Signs Vital signs: Vital Signs Temperature 98.5 F 06/07/25 10:36 Pulse Rate 98 06/07/25 10:36 Respiratory Rate 18 06/07/25 10:36 Blood Pressure 145/79 H 06/07/25 10:36 Pulse Oximetry (%) 99 06/07/25 10:36 Oxygen Delivery Method Room Air 06/07/25 10:36 Shortness of Breath / Dyspnea MDM Narrative MDM Narrative:: 44-year-old male with a history of cirrhosis, cardiomyopathy, atrial fibrillation, congestive heart failure presents to the emergency room with a chief complaint of abdominal pain distention and shortness of breath x 4 days. He denies any chest pain or lower leg edema. No injuries or falls. No syncope. Denies any nausea or vomiting. Denies any recent alcohol abuse. He is followed by Dr. Groves of GI and Dr. Live with cardiology. He has no other acute complaints. On exam, patient is nontoxic-appearing and in no visible signs distress. Vital signs are stable. Abdomen is soft and supple. Work appears essentially unremarkable exception of possible UTI. Will cover him with Keflex for this. He is encouraged to follow-up with his primary doctor. Return as needed for any worsening or emergent changes. Patient data External records reviewed:: [facility] previous records Clinical information provided by:: patient Social determinants that could affect healthcare access:: alcohol use Patient has the following chronic illnesses:: Cardiomyopathy, cirrhosis How is presenting disease/condition affected by chronic disease/condition?: exacerbated by Evaluation data The following diagnostics were reviewed and interpreted by me:: lab results (There is no significant leukocytosis or anemia. There is no metabolic derangement. His T. bili is elevated at 1.9, AST is 42. Alk phos 183.), radiology exam(s) (Significant splenomegaly Esophageal perigastric varices. Mild ascites. Cholelithiasis. Multiple bilateral nonobstructing renal calculi. Thickening of urinary bladder wall, differential would include cystitis Umbilical hernia containing incarcerated fa) and EKG tracing(s) (Normal sinus rhythm at [address] changes or dynamic T waves.) Lab and/or radiology exams considered but not ordered:: n/a Interpretation Summary: Chronically elevated liver enzymes Medications / Prescriptions Medications or Prescriptions considered but not ordered:: n/a Medication administrations:: Medication Administration History Discontinued Medications Cephalexin HCl (Cephalexin 250 Mg Capsule) 500 mg PO X1 ONE Stop: 06/07/25 12:57 n/a Consultations Consultation(s) initiated? (list below): No Diagnosis Shortness of Breath Differential Diagnosis: congestive heart failure, asthma with exacerbation and other (Ascites) Most likely diagnosis given after review of the tests above:: Ascites, UTI Admission Indicated Admission indicated?: not indicated Admission Request Was there a request for admission?: No Disposition Plan Disposition Plan: Discharge Discharge Attestation Discharge Attestation: The patient and all family members were given an opportunity to ask questions and understood the discharge instructions. Discharge instructions specifically effects, indications for sooner follow up or return to the emergency department, and the expected course of current diagnosis. Patient condition: Stable Discharge Plan Plan Patient Disposition: HOME (Self Care) Patient condition on transfer: Stable Prescriptions/Referrals Prescriptions/Med Rec: New cephalexin 500 mg capsule 500 mg PO QID Qty: 20 0RF No Action pantoprazole 20 mg tablet,delayed release (DR/EC) 20 mg PO DAILY Patient Comments: TAKE ONE TABLET BY MOUTH EVERY DAY HE[facility] GASTRIC ACIDITY folic acid 1 mg tablet 1 mg PO DAILY Patient Comments: TAKE 1 TABLET BY MOUTH EVERY DAY FOR 30 DAYS loratadine 10 mg tablet 20 mg PO DAILY Patient Comments: TAKE 2 TABLETS BY MOUTH EVERY DAY IN THE MORNING cholecalciferol (vitamin D3) 25 mcg (1,000 unit) tablet 25 mcg PO DAILY Patient Comments: TAKE 1 TABLET BY MOUTH EVERY DAY vitamin B6-vitamin E-magnesium Tablet 1 tab PO QDAY lactulose 10 gram/15 mL (15 mL) Solution 15 ml PO QDAY Eliquis 5 mg Tablet 5 mg PO BID amiodarone 200 mg Tablet 200 mg PO QDAY 30 Days Qty: 30 3RF furosemide [Lasix] 40 mg tablet 40 mg PO QAM Qty: 30 2RF Referrals: Jose A Sanchez MD [Primary Care Provider] - In 1 week Problem List Clinical Impression: Cirrhosis, Acute UTI Patient/Caregiver Discharge Instructions Education Materials: Understanding Urinary Tract ... Additional Instructions: - Maintain oral hydration. - Use the provided antibiotics as prescribed. - Follow-up with your clinic within the next 1 to 2 weeks for recheck. - Return at anytime for any worsening changes including fever. Print Language: Belarusian Stand Alone Forms: Alicia Award Info., Patient Portal Info Letter
[2025-06-07 12:17] LABS: Amphetamine/Methamp Scrn,U Negative (Negative); Barbiturate Screen,Urine Negative (Negative); Benzodiazepines Screen,Urine Positive (Negative); Benzoylecgonine Screen, Ur Negative (Negative); Bilirubin,Urine Negative (Negative); Blood,Urine 1+ (Negative); Calcium Oxalate Crystals,Urine Rare; Color,Urine Yellow (Lt Yel-Yel); Fentanyl Screen,Urine Negative (Negative); Glucose, Urine Negative (Negative); Ketones,Urine Negative (Negative); Leukocyte Esterase,Urine Negative (Negative); Nitrite,Urine Negative (Negative); Opiate Screen,Urine Negative (Negative); PH,Urine 7.0 (5.0-7.0); Protein,Urine Trace (Neg - Trace); RBC,Urine 44 /hpf (0-3); Specific Gravity,Urine 1.023 (1.001-1.035); Squamous Epithelial Cell,Urine < 1 /hpf (0-5); THC Screen,Urine Negative (Negative); Urobilinogen,Urine 6.0 mg/dL (0.0-1.0); WBC,Urine 1 /hpf (0-5)
[2025-06-07 12:18] LABS: Clarity,Urine Hazy (Clear/Hazy)
[2025-06-07 12:21] LABS: Platelet Count 74 Thou/mm3 (140-440); Slide Review Platelets confirmed
== END 2025-06-07 13:18 | disposition home or self-care (01) ==
PROVIDERS: Nurse Practitioner Family; Emergency Provider Emergency Medicine; PCP Family Medicine
DX: K74.60 Unspecified cirrhosis of liver (principal); N39.0 Urinary tract infection, site not specified; R18.8 Other ascites; K42.0 Umbilical hernia with obstruction, without gangrene; N20.0 Calculus of kidney; K80.20 Calculus of gallbladder without cholecystitis without obstruction; I85.10 Secondary esophageal varices without bleeding; R16.1 Splenomegaly, not elsewhere classified; I25.2 Old myocardial infarction; R94.31 Abnormal electrocardiogram [ECG] [EKG]; I51.7 Cardiomegaly
CPT/HCPCS: 36415; 71046; 74176; 80053; 80307; 80320; 81001; 83690; 83880; 84484; 85025; 85610; 85730; 87086; 93005; 99284; A9270; G0480